=== PATIENT | female | born 1955 | race Caucasian/White ===

== ENCOUNTER → 2016-08-26 | Outpatient (CLI) | payer OTHER ==
--- NOTE | 2016-08-27 07:16 | US ---
EXAMINATION TYPE: US kidneys/renal and bladder DATE OF EXAM: 08/26/2016 4:43 PM COMPARISON: NONE CLINICAL HISTORY: Hematuria R31.9. Lower abdominal pain, hematuria, history of kidney stones EXAM MEASUREMENTS: Right Kidney: 10.3 x 4.7 x 4.6 cm Left Kidney: 9.2 x 5.7 x 4.0cm cm Right Kidney: multiple linear echogenic areas that show no evidence of shadowing, largest = 0.7cm ma y reflect vascular calcifications. Left Kidney: no evidence of hydronephrosis or mass Bladder: appears wnl Bilateral Jets seen: yes There is no evidence for hydronephrosis at this point in time. No nephrolithiasis is seen. No derek s are identified. The urinary bladder is anechoic. Bilateral ureteral jets are seen. IMPRESSION: No significant abnormality of this time.
== END | disposition home or self-care (01) ==
LOC: RADUSWWP 16:21
PROVIDERS: ATTEND Internal Medicine
DX: R31.9 Hematuria, unspecified (principal)
CPT/HCPCS: 76770

== ENCOUNTER → 2016-09-10 | Outpatient (CLI) | payer BC, OTHER ==
[~2016-09-10] MED LIST: SODIUM CHLORIDE 0.9% 250 ML in EMPTY BAG 1 BAG IV PRN; SODIUM CHLORIDE 0.9% 500 ML in EMPTY BAG 1 BAG IV PRN
[2016-09-10 11:38] VITALS: BP 103/62; RESP 16; TEMP 98.7
== END | disposition home or self-care (01) ==
LOC: PROCWHC3 11:00
PROVIDERS: ATTEND Internal Medicine Hematology & Oncology
DX: C50.111 Malignant neoplasm of central portion of right female breast (principal)
CPT/HCPCS: 96523; J1642

== ENCOUNTER → 2016-10-07 | Outpatient (CLI) | payer OTHER ==
--- NOTE | 2016-10-07 13:16 | XR ---
EXAMINATION TYPE: XR KUB DATE OF EXAM: 10/07/2016 12:55 PM CLINICAL HISTORY: Right flank and pelvic pain per patient with history of kidney stones. Ureter stone per order TECHNIQUE: Single supine KUB image of the abdomen is obtained. COMPARISON: CT abdomen and pelvis June 23, 2014. Renal ultrasound August 26, 2016 FINDINGS: Scattered pelvic phleboliths are present. Surgical clips right pelvis is now identified. Ch olecystectomy clips are again seen. There is no definite nephrolithiasis. There is overall nonobstructive bowel gas pattern. Mild to moderate axial joint space loss in both hi ps is redemonstrated. Facet arthropathy lumbosacral junction is noted. Lung bases are not included. IMPRESSION: No definite nephrolithiasis. Possible calculi kidney suspected on recent ultrasound is not clearly se en on plain films, consider CT correlation. No stones noted on CT June 2014.
== END | disposition home or self-care (01) ==
LOC: RADXRMAIN 12:30
PROVIDERS: ATTEND Urology
DX: N20.0 Calculus of kidney (principal)
CPT/HCPCS: 74000

== ENCOUNTER → 2016-10-21 | Outpatient (CLI) | payer OTHER, BC ==
[2016-10-21 13:28] VITALS: BP 130/68; PULSE 65; RESP 16; TEMP 97.8
== END ==
LOC: PROCWHC3 12:51
PROVIDERS: ATTEND Internal Medicine Hematology & Oncology
DX: C50.111 Malignant neoplasm of central portion of right female breast (principal)
CPT/HCPCS: 96523; J1642

== ENCOUNTER → 2016-11-05 | Outpatient (CLI) | payer BC, OTHER ==
--- NOTE | 2016-11-05 10:35 | USB ---
Reason for exam: clinical finding. History: Patient is postmenopausal and has history of breast cancer at age 57. Family history of breast cancer in mother at age 74. Chemotherapy, July 2013. Mastectomy of the right breast, April 12, 2013. Radiation therapy of the right breast, December 2012. Benign lumpectomy of the right breast, December 11, 2009. Took estrogen for 2 months. Indicated problem(s): palpable abnormality and pain in the left breast. Physical Findings: Nurse did not find any significant physical abnormalities on exam. US Breast LT Left breast ultrasound includes all four quadrants, the retroareolar region and axilla. Finding demonstrate at 3 o'clock zone B/C (palpable site) 4mm echogenic area that appears to elongate when turned, either a thickened ligament or possibly a spindle cell lipoma, 6 month follow up recommended. At the 5 o'clock zone A and 7 o'clock zone B/C, also corresponding to palpable sites, there are either prominent fat lobules or 1.7cm conventional lipomas at each site, the latter is favored given that these areas are palpable. These results were verbally communicated with the patient and result sheet given to the patient on 11/05/16. ASSESSMENT: Probably benign, BI-RAD 3 RECOMMENDATION: Follow-up diagnostic mammogram and ultrasound of the left breast in 6 months. Back on schedule. [facility]
== END | disposition home or self-care (01) ==
LOC: RADUSWWP 08:50
PROVIDERS: ATTEND Internal Medicine Hematology & Oncology
DX: N63 Unspecified lump in breast (principal); Z85.3 Personal history of malignant neoplasm of breast

== ENCOUNTER → 2016-12-03 | Outpatient (CLI) | payer OTHER ==
[2016-12-03 11:29] VITALS: BP 123/67; PULSE 72; RESP 16; TEMP 97.8
== END | disposition home or self-care (01) ==
LOC: PROCWHC3 11:00
PROVIDERS: ATTEND Internal Medicine Hematology & Oncology
DX: C50.111 Malignant neoplasm of central portion of right female breast (principal)
CPT/HCPCS: 96523; J1642

== ENCOUNTER → 2017-03-17 | Outpatient (CLI) | payer BC, OTHER ==
[~2017-03-17] MED LIST changes: -SODIUM CHLORIDE 0.9% 250 ML in EMPTY BAG 1 BAG IV PRN
[2017-03-17 12:33] VITALS: BP 134/63; PULSE 51; RESP 18; TEMP 98.4
== END ==
LOC: PROCWHC3 11:49
PROVIDERS: ATTEND Internal Medicine Hematology & Oncology
DX: C50.111 Malignant neoplasm of central portion of right female breast (principal)
CPT/HCPCS: 96523; J1642

== ENCOUNTER → 2017-05-15 | Outpatient (CLI) | payer OTHER ==
--- NOTE | 2017-05-18 08:01 | MM ---
Reason for exam: follow-up at short interval from prior study. Last mammogram was performed 1 year and 1 month ago. History: Patient is postmenopausal and has history of breast cancer at age 57. Family history of breast cancer in mother at age 74. Chemotherapy, July 2013. Mastectomy of the right breast, April 12, 2013. Radiation therapy of the right breast, December 2012. Benign lumpectomy of the right breast, December 11, 2009. Took estrogen for 2 months. Physical Findings: Nurse did not find any significant physical abnormalities on exam. MG Diagnostic Mammo LT w CAD CC and MLO view(s) were taken of the left breast. Prior study comparison: April 28, 2016, left breast MG diagnostic mammo LT w CAD. March 21, 2015, left breast MG diagnostic mammo LT w CAD. The breast tissue is heterogeneously dense. This may lower the sensitivity of mammography. No suspicious abnormality on the left breast. No significant new findings when compared with previous films. These results were verbally communicated with the patient and result sheet given to the patient on 05/15/17. ASSESSMENT: Negative, BI-RAD 1 RECOMMENDATION: Follow-up diagnostic mammogram of the left breast in 1 year.
--- NOTE | 2017-05-18 08:03 | USB ---
Reason for exam: follow-up at short interval from prior study. History: Patient is postmenopausal and has history of breast cancer at age 57. Family history of breast cancer in mother at age 74. Chemotherapy, July 2013. Mastectomy of the right breast, April 12, 2013. Radiation therapy of the right breast, December 2012. Benign lumpectomy of the right breast, December 11, 2009. Took estrogen for 2 months. US Breast LT Left breast ultrasound includes all four quadrants, the retroareolar region and axilla. Finding demonstrates no cystic or solid lesion seen. No suspicious findings. No cystic or solid masses. These results were verbally communicated with the patient and result sheet given to the patient on 05/15/17. ASSESSMENT: Negative, BI-RAD 1 RECOMMENDATION: Follow-up diagnostic mammogram of the left breast in 1 year.
== END | disposition home or self-care (01) ==
LOC: RADUSWWP 14:18
PROVIDERS: ATTEND Internal Medicine Hematology & Oncology
DX: R92.8 Other abnormal and inconclusive findings on diagnostic imaging of breast (principal); Z85.3 Personal history of malignant neoplasm of breast
CPT/HCPCS: 76641; G0206

== ENCOUNTER → 2017-06-18 | Outpatient (CLI) | payer BC, OTHER ==
[2017-06-18 13:12] VITALS: BP 146/74; PULSE 68; RESP 16; TEMP 97.9
== END ==
LOC: PROCWHC3 06-10 11:07
PROVIDERS: ATTEND Internal Medicine Hematology & Oncology
DX: C50.111 Malignant neoplasm of central portion of right female breast (principal)
CPT/HCPCS: 96523; J1642

== ENCOUNTER → 2017-07-29 | Outpatient (CLI) | payer BC, OTHER ==
[2017-07-29 13:07] VITALS: BP 120/80; PULSE 80; RESP 18; TEMP 98.2
== END | disposition home or self-care (01) ==
LOC: PROCWHC3 12:46
PROVIDERS: ATTEND Internal Medicine Hematology & Oncology
DX: C50.211 Malignant neoplasm of upper-inner quadrant of right female breast (principal)
CPT/HCPCS: 96523; J1642

== ENCOUNTER → 2017-10-21 | Outpatient (CLI) | payer OTHER ==
[2017-10-21 14:29] VITALS: BP 117/80; PULSE 83; RESP 16; TEMP 97.9
== END | disposition home or self-care (01) ==
LOC: PROCWHC3 13:49
PROVIDERS: ATTEND Internal Medicine Hematology & Oncology
DX: C50.111 Malignant neoplasm of central portion of right female breast (principal)
CPT/HCPCS: 96523; J1642

== ENCOUNTER → 2017-12-10 | Outpatient (CLI) | payer OTHER ==
[2017-12-10 10:04] VITALS: BP 130/80; RESP 16; TEMP 98.2
== END | disposition home or self-care (01) ==
LOC: PROCWHC3 09:51
PROVIDERS: ATTEND Internal Medicine Hematology & Oncology
DX: C50.211 Malignant neoplasm of upper-inner quadrant of right female breast (principal)
CPT/HCPCS: 96523; J1642

== ENCOUNTER → 2018-03-18 | Outpatient (CLI) | payer OTHER ==
--- NOTE | 2018-03-18 13:51 | FL ---
Modified barium swallow. HISTORY: Dysphagia. Modified barium swallow was performed with the department of speech pathology. The patient was prese nted with various consistencies of barium. There is no evidence for aspiration or penetration. Full report is to follow from the department of speech pathology. Impression: Normal study.
== END | disposition home or self-care (01) ==
LOC: RADFLMAIN 11:01
PROVIDERS: ATTEND Surgery
DX: R13.10 Dysphagia, unspecified (principal); K21.9 Gastro-esophageal reflux disease without esophagitis
CPT/HCPCS: 74230

== ENCOUNTER → 2018-03-22 | Outpatient (CLI) | payer OTHER ==
--- NOTE | 2018-03-22 09:37 | FL ---
EXAMINATION TYPE: FL barium swallow DATE OF EXAM: 03/22/2018 LIMITED ESOPHAGRAM: CLINICAL HISTORY: Dysphasia and GERD per order. History of hiatal hernia repair 15 years ago with me sh and repeat hiatal hernia repair 5 years ago with Joseph fundoplication surgery. TECHNIQUE: Limited esophagram is performed utilizing approximately 30 oz of thin barium. A total of 42 seconds of fluoroscopic time was utilized during procedure. 29 spot images are saved. FINDINGS: The patient swallowed contrast without difficulty or delay. Esophageal peristalsis and mo tility are within normal limits. There is good flow of contrast along the diaphragmatic hiatus into t he stomach, there is no evidence of contrast extravasation to suggest leak. No persistent hiatal devonte ia is seen. Patient remains asymptomatic. Adjacent surgical clips near diaphragmatic hiatus are prese nt. Underlying scoliosis is incidentally noted. There is visualization of left sided Mediport cathete r for known breast cancer. Cholecystectomy clips are incidentally noted. IMPRESSION: No evidence of recurrent hiatal hernia or significant obstruction status post Josehp fund oplication surgery 5 years earlier.
== END | disposition home or self-care (01) ==
LOC: RADFLWHC 08:50
PROVIDERS: ATTEND Surgery
DX: K21.9 Gastro-esophageal reflux disease without esophagitis (principal); R13.10 Dysphagia, unspecified; Z98.890 Other specified postprocedural states
CPT/HCPCS: 74220

== ENCOUNTER → 2018-06-18 | Outpatient (CLI) | payer OTHER ==
[2018-06-18 14:18] VITALS: BP 113/75; PULSE 99; RESP 16; TEMP 98.4
== END ==
LOC: PROCWHC3 13:48
PROVIDERS: ATTEND Internal Medicine Hematology & Oncology
DX: C50.111 Malignant neoplasm of central portion of right female breast (principal)
CPT/HCPCS: 96523

== ENCOUNTER → 2018-07-05 | Outpatient (CLI) | payer OTHER ==
--- NOTE | 2018-07-06 08:26 | MM ---
Reason for exam: additional evaluation requested from prior study. Last mammogram was performed 1 year and 2 months ago. History: Patient is postmenopausal and has history of breast cancer at age 57. Family history of breast cancer in mother at age 74. Chemotherapy, July 2013. Mastectomy of the right breast, April 12, 2013. Radiation therapy of the right breast, December 2012. Benign lumpectomy of the right breast, December 11, 2009. Took estrogen for 2 months. Physical Findings: Nurse did not find any significant physical abnormalities on exam. MG Diagnostic Mammo LT w CAD CC and MLO view(s) were taken of the left breast. Prior study comparison: May 15, 2017, left breast MG diagnostic mammo LT w CAD. April 28, 2016, left breast MG diagnostic mammo LT w CAD. The breast tissue is heterogeneously dense. This may lower the sensitivity of mammography. Benign calcifications in the left breast. No suspicious abnormality. Left mediport seen. No significant new findings when compared with previous films. These results were verbally communicated with the patient and result sheet given to the patient on 07/05/18. ASSESSMENT: Benign, BI-RAD 2 RECOMMENDATION: Follow-up diagnostic mammogram of the left breast in 1 year.
== END ==
LOC: RADMAMWWP 13:36
PROVIDERS: ATTEND Surgery
DX: R92.8 Other abnormal and inconclusive findings on diagnostic imaging of breast (principal)
CPT/HCPCS: 77065

== ENCOUNTER → 2019-02-11 | Outpatient (CLI) | payer OTHER ==
[~2019-02-11] MED LIST changes: +SODIUM CHLORIDE 0.9% 500 ML 500 ML in EMPTY BAG 1 BAG IV PRN; -SODIUM CHLORIDE 0.9% 500 ML in EMPTY BAG 1 BAG IV PRN
== END | disposition home or self-care (01) ==
LOC: PROCWHC3 13:53
PROVIDERS: ATTEND Internal Medicine Hematology & Oncology
DX: Z53.9 Procedure and treatment not carried out, unspecified reason (principal)

== ENCOUNTER 2019-02-17 08:06 | Day surgery (SDC) | payer OTHER ==
[2019-02-15 10:55] VITALS: BMI 25.8
[~2019-02-17 08:06] MED LIST changes: +LACTATED RINGERS 1,000 ML IV SCH; +LIDOCAINE 1% 20 ML VIAL (10MG/ML) FOR IV START INTRADERMA PRN; -SODIUM CHLORIDE 0.9% 500 ML 500 ML in EMPTY BAG 1 BAG IV PRN
[2019-02-17 08:34] VITALS: TEMP 97.4
[2019-02-17] MEDS ORDERED: PROPOFOL 10 MG/ML 20 ML VIAL IV ONE (09:24)
[2019-02-17] MEDS ORDERED: LIDOCAINE 1% INJ 10MG/ML (20 ML MDV) ONE (09:24)
--- NOTE | 2019-02-17 09:33 | P.GSHP ---
History of Present Illness H&P Date: 02/17/19 Chief Complaint: Peptic ulcer disease, epigastric pain This is a 63-year-old female with history of peptic ulcer disease. Patient had complaints of epigastric pain. She presents today for EGD. Past Medical History Past Medical History: Cancer, CVA/TIA, Fibromyalgia, GERD/Reflux, Memory Impairment, Mitral Valve Prolapse (MVP), Osteoarthritis (OA), Pneumonia Additional Past Medical History / Comment(s): HIATAL HERNIA. (06/23/14) CVA, NO RESIDUAL. STAGE 3 R BREAST CANCER-2012. CHEMO-LAST DOSE 11/13. RADIATION- LAST DOSE 01/14. Kidney stones,SJORGREN'S, Hx. anemia, MENINGITIS. IBS. POOR CIRCULATION LT LEG. History of Any Multi-Drug Resistant Organisms: None Reported Past Surgical History: Adenoidectomy, Breast Surgery, Cholecystectomy, Hernia Repair, Hysterectomy, Tonsillectomy Additional Past Surgical History / Comment(s): HAD FALLOPIAN TUBES AND A MASS REMOVED. Hx. hiatel hernia repair x 2 ARTHOSCOPIES ON KNEES, Right masectomy. FABRICIO CATARACTS, SX FOR PTOSIS. STILL HAS MEDIPORT IN PLACE. rt hand sugery /carpal tunnel and arthroplasty aug 2015, COLONOSCOPY, EGD Past Anesthesia/Blood Transfusion Reactions: No Reported Reaction Additional Past Anesthesia/Blood Transfusion Reaction / Comment(s): PT HAS RECIEVED BLOOD WITH NO REACTION. Smoking Status: Never smoker - Past Family History Father Family Medical History: Hypertension, Myocardial Infarction ([place]), Prostate Disorder, Thyroid Disorder Mother Family Medical History: AFIB, Cancer Additional Family Medical History / Comment(s): Mom-atrial fib/breast cancer. Medications and Allergies Home Medications Medication Instructions Recorded Confirmed Type Cyclobenzaprine [Flexeril] 10 mg PO HS 12/14/13 02/15/19 History Desvenlafaxine Succinate [Pristiq 100 mg PO QAM 12/14/13 02/17/19 History ER] Docusate [Colace] 100 mg PO HS 04/13/14 02/15/19 History Loratadine [Claritin] 10 mg PO BID 04/13/14 02/15/19 History Aspirin 325 mg PO HS 04/24/14 02/15/19 History Pregabalin [Lyrica] 75 mg PO BID 11/24/14 02/15/19 History traZODone HCL 50 mg PO HS 07/30/16 02/15/19 History Famotidine [Pepcid] 20 mg PO BID 02/15/19 02/15/19 History Allergies Allergy/AdvReac Type Severity Reaction Status Date / Time hydromorphone HCl Allergy Severe LOW HEART Verified 02/17/19 08:32 [From Dilaudid] RATE iron sucrose complex Allergy Severe HAD MINI Verified 02/17/19 08:32 [From Venofer] STROKE AFTER INFUSION meperidine HCl [From Demerol] Allergy Intermediate Nausea & Verified 02/17/19 08:32 Vomiting morphine Allergy Intermediate Nausea & Verified 02/17/19 08:32 Vomiting Sulfa (Sulfonamide Allergy Mild Itching Verified 02/17/19 08:32 Antibiotics) Surgical - Exam Vital Signs Temp Pulse Resp BP Pulse Ox 97.4 F L 71 17 126/73 100 02/17/19 08:33 02/17/19 08:33 02/17/19 08:33 02/17/19 08:33 02/17/19 08:33 - General well developed, well nourished, no distress - Eyes PERRL - ENT normal pinna - Neck no masses - Respiratory normal expansion - Cardiovascular Rhythm: regular - Abdomen Abdomen: soft, non tender Assessment and Plan Assessment: Epigastric pain History of peptic ulcer disease We'll perform EGD.
--- NOTE | 2019-02-17 09:40 | P.OP ---
Date of Procedure: 02/17/19 Preoperative Diagnosis: Peptic ulcer disease Postoperative Diagnosis: Antral ulcer Procedure(s) Performed: EGD Anesthesia: MAC Surgeon: Marcio Reaves Pathology: other (Antrum) Condition: stable Disposition: PACU Description of Procedure: The patient's placed on the endoscopy table in the lateral position. She received IV sedation. The gastroscope placed oropharynx and passed in the esophagus into the stomach. Scope was then placed through the pylorus. The first and second portion of the duodenum appeared normal. Scope was then brought back the antrum and this appeared mildly inflamed. There was evidence of a prepyloric ulce in the antrum. This was biopsied. The scope was then retroflexed the remainder stomach appeared normal. There was no significant hiatal hernia. The patient a previous Aida fundal plication. The wrap appeared to be in the appropriate position. The distal esophagus. Normal. The proximal esophagus appeared normal. Scope was withdrawn for patient.
[2019-02-17 09:48] VITALS: RESP 16
[2019-02-17 10:02] VITALS: BP 122/78; PULSE 60
== END 2019-02-17 10:17 | disposition home or self-care (01) ==
LOC: ORWHC2ENDO 08:06
PROVIDERS: ATTEND Surgery
DX: K25.9 Gastric ulcer, unspecified as acute or chronic, without hemorrhage or perforation (principal); K29.50 Unspecified chronic gastritis without bleeding; K44.9 Diaphragmatic hernia without obstruction or gangrene; I34.1 Nonrheumatic mitral (valve) prolapse; K21.9 Gastro-esophageal reflux disease without esophagitis; K58.9 Irritable bowel syndrome, unspecified; M19.90 Unspecified osteoarthritis, unspecified site; M79.7 Fibromyalgia; Z79.82 Long term (current) use of aspirin; Z85.3 Personal history of malignant neoplasm of breast; Z86.73 Personal history of transient ischemic attack (TIA), and cerebral infarction without residual deficits; Z87.442 Personal history of urinary calculi; Z88.2 Allergy status to sulfonamides; Z88.5 Allergy status to narcotic agent; Z92.21 Personal history of antineoplastic chemotherapy; Z90.49 Acquired absence of other specified parts of digestive tract; Z98.42 Cataract extraction status, left eye; Z98.41 Cataract extraction status, right eye; Z82.49 Family history of ischemic heart disease and other diseases of the circulatory system; Z80.3 Family history of malignant neoplasm of breast; Z79.899 Other long term (current) drug therapy; Z88.8 Allergy status to other drugs, medicaments and biological substances
CPT/HCPCS: 88305; 43239; J2001; J2704

== ENCOUNTER → 2019-03-03 | Outpatient (CLI) | payer OTHER ==
[~2019-03-03] MED LIST changes: -LACTATED RINGERS 1,000 ML IV SCH; -LIDOCAINE 1% 20 ML VIAL (10MG/ML) FOR IV START INTRADERMA PRN; +SODIUM CHLORIDE 0.9% 500 ML 500 ML in EMPTY BAG 1 BAG IV PRN
[2019-03-03 13:41] VITALS: BP 132/84; PULSE 74; RESP 16; TEMP 98.1
== END | disposition home or self-care (01) ==
LOC: PROCWHC3 13:25
PROVIDERS: ATTEND Internal Medicine Hematology & Oncology
DX: C50.212 Malignant neoplasm of upper-inner quadrant of left female breast (principal)
CPT/HCPCS: 96523; J1642

== ENCOUNTER → 2019-04-06 | Day surgery (SDC) | payer OTHER ==
[2019-03-31 10:35] VITALS: BMI 25.3
[~2019-04-06] MED LIST changes: +PROPOFOL 10 MG/ML 20 ML VIAL IV ONE; -SODIUM CHLORIDE 0.9% 500 ML 500 ML in EMPTY BAG 1 BAG IV PRN
[2019-04-06] MEDS: LACTATED RINGERS 1,000 ML IV SCH ×2 (11:38→12:50)
[2019-04-06 11:42] VITALS: RESP 18; TEMP 97.4
--- NOTE | 2019-04-06 12:53 | P.GSHP ---
History of Present Illness H&P Date: 04/06/19 Chief Complaint: Peptic ulcer disease 's is a 63-year-old female with history of peptic ulcer disease. Patient rents today for EGD. She's had complaints of epigastric pain. Past Medical History Past Medical History: Cancer, CVA/TIA, Fibromyalgia, GERD/Reflux, Mitral Valve Prolapse (MVP), Osteoarthritis (OA), Pneumonia, Renal Disease Additional Past Medical History / Comment(s): HIATAL HERNIA. (06/23/14) OBV FOR CHEST PAIN, TESTS NEGATIVE. IP 04/13/14 TO 04/15/14 CVA, NO RESIDUAL. STAGE 3 R BREAST CANCER-2012. CHEMO-LAST DOSE 11/13. RADIATION-LAST DOSE 01/14. Kidney stones,Shoegrans Hx. anemia, MENNIGITIS. IBS. POOR CIRCULATION LT LEG., ulcers History of Any Multi-Drug Resistant Organisms: None Reported Past Surgical History: Adenoidectomy, Breast Surgery, Cholecystectomy, Hysterectomy, Tonsillectomy Additional Past Surgical History / Comment(s): HAD FALLOPIAN TUBES AND A MASS REMOVED. Hx. hiatel hernia repair x 2 ARTHOSCOPIES ON KNEESRight masectomy. FABRICIO CATARACTS, SX FOR PTOSIS.STILL HAS MEDIPORT IN PLACE. rt hand sugery /carpal tunnel and arthroplasty aug 2015 Past Anesthesia/Blood Transfusion Reactions: No Reported Reaction Additional Past Anesthesia/Blood Transfusion Reaction / Comment(s): PT HAS RECIEVED BLOOD WITH NO REACTION. Smoking Status: Never smoker - Past Family History Father Family Medical History: Hypertension, Myocardial Infarction ([place]), Prostate Disorder, Thyroid Disorder Mother Family Medical History: AFIB, Cancer Additional Family Medical History / Comment(s): Mom-atrial fib/breast cancer. Medications and Allergies Home Medications Medication Instructions Recorded Confirmed Type Cyclobenzaprine [Flexeril] 10 mg PO HS 12/14/13 03/31/19 History Desvenlafaxine Succinate [Pristiq 100 mg PO QAM 12/14/13 04/06/19 History ER] Docusate [Colace] 100 mg PO HS 04/13/14 03/31/19 History Loratadine [Claritin] 10 mg PO BID PRN 04/13/14 03/31/19 History Aspirin 325 mg PO HS 04/24/14 03/31/19 History Pregabalin [Lyrica] 75 mg PO BID 11/24/14 03/31/19 History traZODone HCL 50 mg PO HS PRN 07/30/16 04/06/19 History Famotidine [Pepcid] 20 mg PO BID 02/15/19 03/31/19 History Omeprazole 40 mg PO DAILY #60 capsule. 02/17/19 03/31/19 Rx Sucralfate [Carafate] 1 gm PO BID #60 tab 02/17/19 03/31/19 Rx Allergies Allergy/AdvReac Type Severity Reaction Status Date / Time hydromorphone HCl Allergy Severe LOW HEART Verified 04/06/19 11:26 [From Dilaudid] RATE iron sucrose complex Allergy Severe HAD MINI Verified 04/06/19 11:26 [From Venofer] STROKE AFTER INFUSION meperidine HCl [From Demerol] Allergy Intermediate Nausea & Verified 04/06/19 11:26 Vomiting morphine Allergy Intermediate Nausea & Verified 04/06/19 11:26 Vomiting Sulfa (Sulfonamide Allergy Mild Itching Verified 04/06/19 11:26 Antibiotics) Surgical - Exam Vital Signs Temp Pulse Resp BP Pulse Ox 97.4 F L 61 18 141/68 100 04/06/19 11:15 04/06/19 11:15 04/06/19 11:15 04/06/19 11:15 04/06/19 11:15 - General well developed, well nourished, no distress - Eyes PERRL - ENT normal pinna - Neck no masses - Respiratory normal expansion - Cardiovascular Rhythm: regular - Abdomen Mild epigastric pain Abdomen: soft Assessment and Plan Assessment: History of peptic ulcer disease. We'll perform EGD.
[2019-04-06 13:30] VITALS: BP 155/95; PULSE 59
--- NOTE | 2019-04-15 12:49 | P.OP ---
Date of Procedure: 04/08/19 Preoperative Diagnosis: Peptic ulcer Postoperative Diagnosis: Peptic ulcer Procedure(s) Performed: EGD Anesthesia: MAC Surgeon: Marcio Reaves Pathology: other (Antral ulcer) Condition: stable Disposition: PACU Description of Procedure: Patient's placed on the endoscopy table in the lateral position. She received IV sedation. The gastro-/oropharynx passed in the esophagus and into the stomach. Scope some placed through the pylorus. First and second portion duodenum appeared normal. Scope summer back the antrum and there was a small antral ulcer seen. This was biopsied. The scope was unretroflexed and remainder some appeared normal. The GE junction was at 47. The distal esophagus appeared normal. The proximal esophagus. Copious withdrawn for patient.
== END ==
LOC: ORWHC2ENDO 10:45
PROVIDERS: ATTEND Surgery
DX: K25.9 Gastric ulcer, unspecified as acute or chronic, without hemorrhage or perforation (principal); K29.50 Unspecified chronic gastritis without bleeding; Z87.11 Personal history of peptic ulcer disease; K58.9 Irritable bowel syndrome, unspecified; K21.9 Gastro-esophageal reflux disease without esophagitis; M79.7 Fibromyalgia; I34.1 Nonrheumatic mitral (valve) prolapse; Z86.73 Personal history of transient ischemic attack (TIA), and cerebral infarction without residual deficits; Z95.828 Presence of other vascular implants and grafts; F32.9 Major depressive disorder, single episode, unspecified; M19.90 Unspecified osteoarthritis, unspecified site; Z90.11 Acquired absence of right breast and nipple; Z90.49 Acquired absence of other specified parts of digestive tract; Z97.2 Presence of dental prosthetic device (complete) (partial); Z87.01 Personal history of pneumonia (recurrent); Z87.442 Personal history of urinary calculi; Z85.3 Personal history of malignant neoplasm of breast; Z92.3 Personal history of irradiation; Z92.21 Personal history of antineoplastic chemotherapy; Z82.49 Family history of ischemic heart disease and other diseases of the circulatory system; Z83.49 Family history of other endocrine, nutritional and metabolic diseases; Z80.3 Family history of malignant neoplasm of breast; Z79.82 Long term (current) use of aspirin; Z79.899 Other long term (current) drug therapy; Z88.5 Allergy status to narcotic agent; Z88.2 Allergy status to sulfonamides; Z88.8 Allergy status to other drugs, medicaments and biological substances
CPT/HCPCS: 88305; 43239; J2704

== ENCOUNTER → 2019-04-22 | Outpatient (CLI) | payer OTHER ==
--- NOTE | 2019-04-22 10:45 | MR ---
EXAMINATION TYPE: MR brain wo/w con DATE OF EXAM: 04/22/2019 10:30 AM COMPARISON: 06/02/2014 HISTORY: Breast cancer CONTRAST: Patient received 7 mL intravenous Gadavist gadolinium contrast. Multiplanar and multispin-echo imaging of the brain was performed . Pre and post contrast enhanced i mages are obtained. The ventricles, basal cisterns and sulci overlying the cerebral convexities are mildly enlarged. There is evidence of mild periventricular white matter ischemic demyelination. Remote deep white matter insults are also noted. No acute edema is seen on diffusion weighted imaging. There is no evidence for midline shift or mass effect. Acute intracranial hemorrhage or extra-axial collection is not evident. No enhancing lesions are seen. The paranasal sinuses and mastoid air cells are well-aerated. IMPRESSION: Age-related atrophic and chronic small vessel ischemic change. No acute intracranial process at this time. No enhancing lesions are seen.
== END | disposition home or self-care (01) ==
LOC: RADMRIMAIN 09:44
PROVIDERS: ATTEND Internal Medicine Hematology & Oncology
DX: I67.82 Cerebral ischemia (principal); G31.1 Senile degeneration of brain, not elsewhere classified; C50.211 Malignant neoplasm of upper-inner quadrant of right female breast
CPT/HCPCS: 70553; A9585

== ENCOUNTER → 2019-05-18 | Outpatient (CLI) | payer OTHER ==
[2019-05-18 16:49] LABS: Basophils % (A) 0 %; Eosinophils % (A) 0 %; HCT 37.3 % (34.0-46.0); HGB 12.6 gm/dL (11.4-16.0); Lymphocytes # (A) 1.3 k/uL (1.0-4.8); Lymphocytes % (A) 26 %; MCH 31.1 pg (25.0-35.0); MCHC 33.8 g/dL (31.0-37.0); MCV 92.1 fL (80.0-100.0); Mean Platelet Volume 5.8; Monocytes # (A) 0.2 k/uL (0-1.0); Monocytes % (A) 4 %; Neutrophils # (A) 3.3 k/uL (1.3-7.7); Neutrophils % (A) 68 %; Platelet Count 189 k/uL (150-450); RBC 4.05 m/uL (3.80-5.40); RDW 12.3 % (11.5-15.5); WBC 4.8 k/uL (3.8-10.6)
[2019-05-19 00:29] LABS: African American GFR (CKD) 90.9 (60.0-200.0); Albumin 4.2 g/dL (3.80-4.90); Albumin/Globulin Ratio 2.1 (1.60-3.17); Anion Gap 5.9 mmol/L (4.00-12.00); BUN/Creat Ratio 21.25 Ratio (12.00-20.00); Calcium 9.2 mg/dL (8.7-10.3); Carbon Dioxide 28.1 mmol/L (21.6-31.8); Potassium 4.2 mmol/L (3.5-5.5); Total Bilirubin 0.3 mg/dL (0.3-1.2); Total Protein 6.2 g/dL (6.2-8.2)
[2019-05-19 01:25] LABS: T4, Free (Free Thyroxine) 0.9 ng/dL (0.80-1.80)
== END | disposition home or self-care (01) ==
LOC: LABWHC1 14:48
PROVIDERS: ATTEND Nurse Practitioner Acute Care
DX: I49.9 Cardiac arrhythmia, unspecified (principal); E55.9 Vitamin D deficiency, unspecified; R41.9 Unspecified symptoms and signs involving cognitive functions and awareness
CPT/HCPCS: 36415; 80053; 82306; 82607; 83090; 84207; 84439; 84443; 84481; 85025; 93005

== ENCOUNTER → 2019-05-26 | Outpatient (CLI) | payer OTHER ==
[2019-05-26 14:38] LABS: Basophils % (A) 1 %; Eosinophils % (A) 0 %; HCT 41.4 % (34.0-46.0); HGB 13.8 gm/dL (11.4-16.0); Lymphocytes # (A) 1.2 k/uL (1.0-4.8); Lymphocytes % (A) 25 %; MCH 30.8 pg (25.0-35.0); MCHC 33.3 g/dL (31.0-37.0); MCV 92.6 fL (80.0-100.0); Mean Platelet Volume 5.6; Monocytes # (A) 0.2 k/uL (0-1.0); Monocytes % (A) 4 %; Neutrophils # (A) 3.3 k/uL (1.3-7.7); Neutrophils % (A) 68 %; Platelet Count 198 k/uL (150-450); RBC 4.47 m/uL (3.80-5.40); RDW 12.2 % (11.5-15.5); WBC 4.8 k/uL (3.8-10.6)
[2019-05-26 18:55] LABS: African American GFR (CKD) 90.9 (60.0-200.0); Albumin 4.5 g/dL (3.80-4.90); Albumin/Globulin Ratio 2.05 (1.60-3.17); Anion Gap 9.7 mmol/L (4.00-12.00); BUN/Creat Ratio 13.75 Ratio (12.00-20.00); Calcium 9.2 mg/dL (8.7-10.3); Carbon Dioxide 29.3 mmol/L (21.6-31.8); Globulin 2.2 g/dL (1.6-3.3); Potassium 4.1 mmol/L (3.5-5.5); Total Bilirubin 0.6 mg/dL (0.2-1.2); Total Protein 6.7 g/dL (6.2-8.2)
[2019-05-26 19:05] LABS: Folate, Serum 8.7 ng/mL
[2019-05-26 20:24] LABS: Hemoglobin A1C 5.1 % (4.0-6.0)
== END | disposition home or self-care (01) ==
LOC: LABWHC1 13:32
PROVIDERS: ATTEND Internal Medicine
DX: R41.3 Other amnesia (principal)
CPT/HCPCS: 36415; 80053; 82607; 82746; 83036; 84443; 85025

== ENCOUNTER → 2019-07-08 | Outpatient (CLI) | payer OTHER | END | disposition home or self-care (01) | LOC: LABWHC1 11:21 | PROVIDERS: ATTEND Internal Medicine | DX: D51.9 Vitamin B12 deficiency anemia, unspecified (principal) | CPT/HCPCS: 36415; 82607; 83090 ==

== ENCOUNTER → 2019-08-18 | Outpatient (CLI) | payer OTHER ==
--- NOTE | 2019-08-18 14:50 | XR ---
EXAMINATION TYPE: XR lumbar spine 2 or 3V DATE OF EXAM: 08/18/2019 CLINICAL HISTORY: Low back pain TECHNIQUE: Frontal and lateral images of the lumbar spine are obtained. COMPARISON: None FINDINGS: There is diffuse osseous demineralization. There are 5 lumbar type vertebral bodies. The jerome mbar vertebral bodies maintain normal vertebral body heights and alignment. Multilevel facet arthropa thy and anterior osteophytes are seen. Intervertebral disc space narrowing at L4-L5. No acute fractur e of the lumbar spine. IMPRESSION: 1. No acute fracture or malalignment is seen in the lumbar spine. 2. Diffuse osseous demineralization and moderate multilevel degenerative disc disease of the lumbar s pine.
== END | disposition home or self-care (01) ==
LOC: RADXRMAIN 14:19
PROVIDERS: ATTEND Internal Medicine
DX: M51.36 Other intervertebral disc degeneration, lumbar region (principal); M85.80 Other specified disorders of bone density and structure, unspecified site
CPT/HCPCS: 72100

== ENCOUNTER → 2019-08-23 | Outpatient (CLI) | payer OTHER ==
--- NOTE | 2019-08-23 11:54 | MM ---
Reason for exam: additional evaluation requested from prior study. Last mammogram was performed 1 year and 2 months ago. History: Patient is postmenopausal and has history of breast cancer at age 57. Family history of breast cancer in mother at age 74. Chemotherapy, July 2013. Mastectomy of the right breast, April 12, 2013. Radiation therapy of the right breast, December 2012. Benign lumpectomy of the right breast, December 11, 2009. Took estrogen for 2 months. Physical Findings: Nurse did not find any significant physical abnormalities on exam. MG 3D Diag Mammo W/Cad LT CC and MLO view(s) were taken of the left breast. Prior study comparison: July 05, 2018, left breast MG diagnostic mammo LT w CAD. May 15, 2017, left breast MG diagnostic mammo LT w CAD. The breast tissue is heterogeneously dense. This may lower the sensitivity of mammography. Finding: There are typically benign vascular, round, linear calcifications in the left breast. There is no discrete abnormality. Left axillary mediport redemonstrated. These results were verbally communicated with the patient and result sheet given to the patient on 08/23/19. ASSESSMENT: Benign, BI-RAD 2 RECOMMENDATION: Follow-up diagnostic mammogram of the left breast in 1 year.
== END ==
LOC: RADMAMWWP 10:41
PROVIDERS: ATTEND Internal Medicine Hematology & Oncology
DX: R92.8 Other abnormal and inconclusive findings on diagnostic imaging of breast (principal)
CPT/HCPCS: 77065; G0279; 77061

== ENCOUNTER → 2019-08-26 | Outpatient (CLI) | payer OTHER ==
--- NOTE | 2019-08-29 07:31 | BD ---
EXAMINATION TYPE: Axial Bone Density DATE OF EXAM: 08/26/2019 COMPARISON: 01.19.2013 CLINICAL HISTORY: M 81.0 Height: 65 Weight: 169.1 FRAX RISK QUESTIONS: Alcohol (3 or more units per day): no Family History (Parent hip fracture): no Glucocorticoids (More than 3mos): no (Ex: prednisone, prednisolone, methylprednisolone, dexamethasone, and hydrocortisone). History of Fracture in Adulthood: no Secondary Osteoporosis: 1. Type 1 Diabetes: no 2. Hyperthyroidism: no 3. Menopause before 45: yes 4. Malnutrition: no 5. Chronic liver disease: no Rheumatoid Arthritis: no Current Tobacco Use: no RISK FACTORS HISTORY OF: History of Wrist Fracture: When: Family History of Osteoporosis: no Active: sometimes Diet low in dairy products/other sources of calcium: yes Postmenopausal woman: around age 33 Lost more than 2 inches in height since high school: no MEDICATIONS: Additional History: EXAM MEASUREMENTS: Bone mineral densitometry was performed using the [employer] System. Bone mineral density as measured about the Lumbar spine is: ----- L1-L4(G/cm2): 0.970 T Score Values are as follows: ----- L2: -1.9 ----- L3: -2.1 ----- L4: -1.8 ----- L1-L4: -1.7 Bone mineral density has: decreased -17.1 % since study of: 01.19.2013 Bone mineral density about the R hip (g/cm2): 0.727 Bone mineral density about the L hip (g/cm2): 0.729 T Score values are as follows: -----R Neck: -2.2 -----L Neck: -2.2 -----R Total: -2.2 -----L Total: -2.6 Bone mineral density has: decreased -13.4 % since study of: 01.19.2013 IMPRESSION: Osteopenia (T Score between -2.5 and -1). There is slightly increased risk of fracture and the patient may be considered for treatment. Re-Screen 2-5 years. NOTE: T-SCORE=SD OF THE YOUNG ADULT MEAN.
== END | disposition home or self-care (01) ==
LOC: RADBDWWP 14:41
PROVIDERS: ATTEND Internal Medicine
DX: M85.89 Other specified disorders of bone density and structure, multiple sites (principal)
CPT/HCPCS: 77080

== ENCOUNTER 2019-09-13 13:45 | Day surgery (SDC) | payer OTHER ==
[2019-09-09 14:36] VITALS: BMI 26.9
[~2019-09-13 13:45] MED LIST changes: +LACTATED RINGERS 1,000 ML IV SCH; +LIDOCAINE 1% 20 ML VIAL (10MG/ML) FOR IV START INTRADERMA PRN; +ONDANSETRON 4 MG/2 ML VIAL IVP ONE; -PROPOFOL 10 MG/ML 20 ML VIAL IV ONE; +fentaNYL (PF) 50 MCG/ML 2 ML AMP IV PRN
[2019-09-13 14:21] VITALS: TEMP 97.5
[2019-09-13] MEDS ORDERED: DEXAMETHASONE SOD PHOSPHATE 10 MG/ML 1 ML VIAL IV ONE (14:39)
[2019-09-13] MEDS ORDERED: MIDAZOLAM 2 MG/2 ML VIAL IV ONE (14:57)
--- NOTE | 2019-09-13 15:11 | P.ANPRN ---
Procedure Note - Anesthesia - Nerve Block Performed Left Axillary Single Time Out Performed: Yes Date of Procedure: 09/13/19 Procedure Start Time: 14:56 Procedure Stop Time: 15:06 Location of Patient: PreOp Indication: Acute Post-Operative Pain, Requested by Surgeon Sedation Type: Sedate with meaningful contact maintained Preparation: Sterile Prep Position: Supine Catheter: None Needle Types: Pajunk Needle Gauge: 21 Ultrasound used to visualize needle placement: Yes Ultrasound used to observe medication spread: Yes Injectate: 0.5% Ropivacaine (see comment for volume) (ROPIVACAINE 0.5%- 20CC, LIDOCAINE 1% WITH EPI 1:200,000- 15 CC) Blood Aspirated: No Pain Paresthesia on Injection Noted: No Resistance on Injection: Normal Image Stored and Saved: Yes Events: Uneventful and Well Tolerated
[2019-09-13] MEDS ORDERED: LIDOCAINE 2%-EPI 1:100,000 20 ML VIAL ONE (15:45)
[2019-09-13] MEDS ORDERED: ROPIVACAINE 5 MG/ML 30 ML VIAL ONE (15:45)
[2019-09-13] MEDS ORDERED: PROPOFOL 10 MG/ML 20 ML VIAL IV ONE (15:45)
[2019-09-13 16:50] VITALS: RESP 18
[2019-09-13] MEDS ORDERED: LABETALOL 5 MG/ML VIAL MDV IVP ONE (17:15)
[2019-09-13 17:32] VITALS: BP 145/65; PULSE 78
--- NOTE | 2019-09-14 07:24 | OP ---
OPERATIVE REPORT DATE OF SERVICE: 09/13/2019 PREOPERATIVE DIAGNOSIS: 1. Osteoarthritis basal joint left thumb. 2. Left carpal tunnel syndrome. FINAL DIAGNOSES: 1. Osteoarthritis basal joint left thumb. 2. Left carpal tunnel syndrome. PROCEDURES: 1. Excision trapezium with ligament reconstruction, tendon interposition arthroplasty using the flexor carpi radialis. 2. Left carpal tunnel release. EPIC ANESTHESIA ANALYST: Marah Manning PROCEDURE DESCRIPTION: The patient was taken to the Operative Suite after an axillary block was performed by the Department of Anesthesia in the holding area with good results. The involved arm was prepped and draped in the usual manner, elevated, exsanguinated and blood pressure tourniquet inflated to 250 mm of mercury. A volar incision was made over the palm of the hand using a Clarke approach. The dissection was taken through the subcutaneous tissue bluntly to identify and to preserve sensory branches. The flexor carpi radialis tendon was initially identified and kept in view throughout the remainder of the procedure. The thenar muscles were then gently dissected off of the volar capsule and reflected ulnarly and distally. Longitudinal arthrotomy was then made into the trapezial metacarpal and scaphotrapezial joints. The trapezium was dissected sharply with a little traction on the thumb and care again, given to monitoring the position of the flexor carpi radialis. The trapezium was osteotomized and removed in piecemeal fashion using rongeur. Again, the flexor carpi radialis tendon was kept intact so as not to be harmed during this portion of the procedure. A drill hole was then made into the base of the first metacarpal, beginning with an awl and enlarged using drill bits and a large curette. A similar hole was drilled on the dorsal aspect of the base of the first metacarpal perpendicular to the plane of the nail bed. Attention was then turned to harvesting the flexor carpi radialis. Approximately 8 to 10 cm proximal to the wrist, small transverse incision was made and blunt dissection was taken through the subcutaneous tissue. The flexor carpi radialis tendon was identified and released to this level. It was retracted into the wrist wound with a gentle tug. A suspension sling arthroplasty was then performed along with ligament reconstruction of the deep volar ligament using the flexor carpi radialis tendon. The edge of the tendon was secured with suture. The suture was then passed into the base of the first metacarpal and brought out through the dorsal drill hole and brought back down upon itself and abductor pollicis longus tendons. It was secured in place with 3-0 PDS suture. It was then brought back around itself, back through the abductor pollicis longus tendons, and back down upon itself again and further secured with 3-0 PDS suture. Again, in this manner reconstruction of the deep volar ligament was accomplished as well as a suspension sling arthroplasty and natural tendon spacer for the joint. Next, a longitudinal incision was made along the ring finger ray distal to the wrist crease. Dissection was taken through the skin and subcutaneous tissue, initially sharp through the skin and then blunt through the subcutaneous tissue to ensure protection of any potential terminal transverse branches of the palmar cutaneous nerve. The palmar fascia was then incised under direct vision longitudinally exposing the transverse carpal ligament. The transverse carpal ligament also was incised under direct visualization. The median nerve was then reflected free of tenosynovium to ensure no adhesions. At this point, a slight hour glass constriction was noted of the median nerve beneath the transverse carpal ligament. Both wounds were again irrigated and were closed with running and interrupted 5-0 nylon suture. A soft bulky dressing was then applied including the volar plaster splint, immobilizing the wrist in neutral position and a thumb spica splint to the IP joint, immobilizing the thumb. The patient was then taken to the Recovery Room in satisfactory condition. PHILLY / VICKI: [phone] /
== END 2019-09-13 18:05 | disposition home or self-care (01) ==
LOC: OR 13:45
PROVIDERS: ATTEND Orthopaedic Surgery Hand Surgery
DX: M19.042 Primary osteoarthritis, left hand (principal); G56.02 Carpal tunnel syndrome, left upper limb; M19.032 Primary osteoarthritis, left wrist; M79.7 Fibromyalgia; G62.9 Polyneuropathy, unspecified; K58.9 Irritable bowel syndrome, unspecified; M35.00 Sjogren syndrome, unspecified; K21.9 Gastro-esophageal reflux disease without esophagitis; Z88.5 Allergy status to narcotic agent; Z88.2 Allergy status to sulfonamides; Z79.02 Long term (current) use of antithrombotics/antiplatelets; Z79.82 Long term (current) use of aspirin; Z79.899 Other long term (current) drug therapy; Z98.890 Other specified postprocedural states; Z85.3 Personal history of malignant neoplasm of breast; Z92.21 Personal history of antineoplastic chemotherapy; Z92.3 Personal history of irradiation; Z88.8 Allergy status to other drugs, medicaments and biological substances; Z87.11 Personal history of peptic ulcer disease; Z86.73 Personal history of transient ischemic attack (TIA), and cerebral infarction without residual deficits; Z90.49 Acquired absence of other specified parts of digestive tract; Z90.710 Acquired absence of both cervix and uterus; Z90.89 Acquired absence of other organs; Z90.721 Acquired absence of ovaries, unilateral; Z90.11 Acquired absence of right breast and nipple; Z98.41 Cataract extraction status, right eye; Z98.42 Cataract extraction status, left eye; Z82.3 Family history of stroke; Z82.49 Family history of ischemic heart disease and other diseases of the circulatory system
CPT/HCPCS: 64415; 76942; 64721; 25447; J2250; J1100; J0690; J2405; J2795; J2704

== ENCOUNTER 2019-11-16 13:10 | Emergency (ER) | payer OTHER ==
[2019-11-16 13:18] VITALS: RESP 18
[2019-11-16] MEDS ORDERED: SODIUM CHLORIDE 0.9% 1,000 ML IV STA (13:38)
[2019-11-16] MEDS ORDERED: ONDANSETRON 4 MG/2 ML VIAL IVP STA (13:38)
[2019-11-16] MEDS ORDERED: diphenhydrAMINE 50 MG/ML 1 ML VIAL IVP STA (13:38)
[2019-11-16 13:48] LABS: Basophils % (A) 0 %; Eosinophils # (A) 0.1 k/uL (0-0.7); Eosinophils % (A) 1 %; HCT 45.3 % (34.0-46.0); HGB 15.2 gm/dL (11.4-16.0); Lymphocytes # (A) 0.9 k/uL (1.0-4.8); Lymphocytes % (A) 12 %; MCH 29.9 pg (25.0-35.0); MCHC 33.6 g/dL (31.0-37.0); MCV 88.7 fL (80.0-100.0); Mean Platelet Volume 7.2; Monocytes # (A) 0.2 k/uL (0-1.0); Monocytes % (A) 3 %; Neutrophils # (A) 5.9 k/uL (1.3-7.7); Neutrophils % (A) 83 %; Platelet Count 233 k/uL (150-450); RBC 5.11 m/uL (3.80-5.40); RDW 12.5 % (11.5-15.5)
[2019-11-16 13:56] LABS: ALT 16 U/L (4-34); AST 25 U/L (14-36); African American GFR (CKD) >90 (>60 ml/min/1.73 sqM); Albumin 4.6 g/dL (3.5-5.0); Alkaline Phosphatase 116 U/L (38-126); Anion Gap 10 mmol/L; Blood Urea Nitrogen 20 mg/dL (7-17); Carbon Dioxide 27 mmol/L (22-30); Chloride 102 mmol/L (98-107); Glucose 118 mg/dL (74-99); Non-African American GFR(CKD) >90 (>60 ml/min/1.73 sqM); Potassium 3.6 mmol/L (3.5-5.1); Sodium 139 mmol/L (137-145); Total Protein 7.6 g/dL (6.3-8.2)
--- NOTE | 2019-11-16 14:04 | XR ---
EXAMINATION TYPE: XR KUB DATE OF EXAM: 11/16/2019 COMPARISON: NONE HISTORY: Pain TECHNIQUE: Single supine KUB image of the abdomen is obtained FINDINGS: Small bowel demonstrates no evidence for dilatation or air fluid levels. Gas and fecal material is seen in non-distended colon. No convincing evidence for pneumoperitoneum. No unusual calcifications. The lung bases are clear. The osseous structures are intact. IMPRESSION: 1. Overall nonobstructive bowel gas pattern.
[2019-11-16 14:28] LABS: Appearance,Urine Clear (Clear); Bilirubin,Urine Negative (Negative); Blood,Urine Negative (Negative); Color,Urine Yellow; Glucose,Urine (UA) Negative (Negative); Ketones,Urine 2+ (Negative); Leukocyte Esterase,Urine Trace (Negative); Mucus,Urine Many /hpf; Nitrite,Urine Negative (Negative); Protein,Urine Trace (Negative); RBC,Urine 1 /hpf (0-5); Specific Gravity,Urine 1.025 (1.001-1.035); Squamous Epithelial Cell,Urine 2 /hpf (0-4); Urobilinogen,Urine <2.0 mg/dL (<2.0); WBC,Urine 3 /hpf (0-5)
--- NOTE | 2019-11-16 15:50 | ED ---
Nausea/Vomiting/Diarrhea HPI - General Chief complaint: Nausea/Vomiting/Diarrhea Stated complaint: nausea, vomiting Time Seen by Provider: 11/16/19 13:19 Source: patient Mode of arrival: wheelchair Limitations: no limitations - History of Present Illness Initial comments: 64-year-old female patient presents to the emergency department today for evaluation of nausea and vomiting for the last 2 days. Patient states she's been unable to keep down any food or fluids. She denies any abdominal pain or diarrhea. States she believes she may be constipated she has not had a bowel movement in the last 4-5 days. Denies any fever or chills. Denies any hem atemesis, hematochezia, or melena. Patient did just complete a two week prescription for Doxycycline. Patient denies any recent rash, cough, shortness of breath, chest pain, back pain, numbness, tingling, dizziness, weakness, hematuria, dysuria, urinary urgency, urinary frequency, headache, visual c hanges, or any other complaints. - Related Data Home Medications Medication Instructions Recorded Confirmed Cyclobenzaprine [Flexeril] 10 mg PO HS 12/14/13 09/09/19 Desvenlafaxine Succinate [Pristiq 100 mg PO QAM 12/14/13 09/09/19 ER] Docusate [Colace] 100 mg PO HS 04/13/14 09/09/19 Loratadine [Claritin] 10 mg PO DAILY 04/13/14 09/09/19 Pregabalin [Lyrica] 75 mg PO BID 11/24/14 09/09/19 traZODone HCL 50 mg PO HS PRN 07/30/16 09/09/19 Clopidogrel Bisulfate [Plavix] 75 mg PO DAILY 09/09/19 09/09/19 Previous Rx's Medication Instructions Recorded Omeprazole 40 mg PO DAILY #60 capsule. 02/17/19 HYDROcodone/APAP 7.5-325MG [[place] 1 tab PO Q4-6H PRN #15 tab 09/13/19 7.5-325] Ondansetron [Zofran ODT] 4 mg PO Q8HR PRN #10 tab 11/16/19 Allergies Allergy/AdvReac Type Severity Reaction Status Date / Time hydromorphone HCl Allergy Severe LOW HEART Verified 11/16/19 13:18 [From Dilaudid] RATE iron sucrose complex Allergy Severe HAD MINI Verified 11/16/19 13:18 [From Venofer] STROKE AFTER INFUSION meperidine HCl [From Demerol] Allergy Intermediate Nausea & Verified 11/16/19 13:18 Vomiting morphine Allergy Intermediate Nausea & Verified 11/16/19 13:18 Vomiting Sulfa (Sulfonamide Allergy Mild Itching Verified 11/16/19 13:18 Antibiotics) Review of Systems ROS Statement: Those systems with pertinent positive or pertinent negative responses have been documented in the HPI. ROS Other: All systems not noted in ROS Statement are negative. Past Medical History Past Medical History: Cancer, CVA/TIA, Fibromyalgia, GERD/Reflux, Memory Impairment, Mitral Valve Prolapse (MVP), Osteoarthritis (OA), Pneumonia, Renal Disease Additional Past Medical History / Comment(s): HIATAL HERNIA, CVA X2, NO RESIDUAL, HX STAGE 3 RIGHT BREAST CANCER - 2013, hx Kidney stones, Sjogren's, anemia, MENINGITIS, IBS, poor circulation bilateral legs, numbness in toes. History of Any Multi-Drug Resistant Organisms: None Reported Past Surgical History: Adenoidectomy, Breast Surgery, Cholecystectomy, Hysterectomy, Orthopedic Surgery, Tonsillectomy Additional Past Surgical History / Comment(s): FALLOPIAN TUBES AND A MASS REMOVED, hiatel hernia repair X2, ARTHOSCOPIES ON KNEES, right masectomy, bilateral cataracts, SX FOR PTOSIS(eyelids), right hand sugery/carpal tunnel and arthroplasty. Past Anesthesia/Blood Transfusion Reactions: No Reported Reaction Additional Past Anesthesia/Blood Transfusion Reaction / Comment(s): PT HAS RECIEVED BLOOD WITH NO REACTION. Past Psychological History: Anxiety, Depression Smoking Status: Never smoker Past Alcohol Use History: Occasional Past Drug Use History: None Reported - Past Family History Father Family Medical History: Hypertension, Myocardial Infarction ([place]), Prostate Disorder, Thyroid Disorder Daughter(s) Family Medical History: Blood Disorder Additional Family Medical History / Comment(s): Factor 5. Mother Family Medical History: AFIB, Cancer Additional Family Medical History / Comment(s): Breast cancer. General Exam Limitations: no limitations General appearance: alert, in no apparent distress, other (This is a well- developed, well-nourished adult female patient in no acute distress. Vital signs upon presentation are temperature 97.9F, pulse 93, respirations 18, blood pressure 135/84, pulse ox 100% on room air.) Eye exam: Present: normal appearance, PERRL, EOMI. Absent: scleral icterus, conjunctival injection, periorbital swelling ENT exam: Present: normal exam, normal oropharynx, mucous membranes moist Respiratory exam: Present: normal lung sounds bilaterally. Absent: respiratory distress, wheezes, rales, rhonchi, stridor Cardiovascular Exam: Present: regular rate, normal rhythm, normal heart sounds. Absent: systolic murmur, diastolic murmur, rubs, gallop, clicks GI/Abdominal exam: Present: soft, normal bowel sounds. Absent: distended, tende rness, guarding, rebound, rigid Neurological exam: Present: alert, oriented X3, CN II-XII intact Psychiatric exam: Present: normal affect, normal mood Skin exam: Present: warm, dry, intact, normal color. Absent: rash Course Vital Signs 11/16/19 11/16/19 13:11 16:12 Temperature 97.9 F 97.3 F L Pulse Rate 93 68 Respiratory 18 18 Rate Blood Pressure 135/84 136/70 O2 Sat by Pulse 100 98 Oximetry Medical Decision Making - Medical Decision Making 64-year-old female patient presents to the emergency department today for evaluation of nausea and vomiting. Physical examination was unremarkable, abdomen soft and nontender. She is afebrile no normal vital signs. Labs reviewed and were unremarkable. Urinalysis negative for infection. Upon reevaluation patient states she does feel better. She did test negative for carotid 19. She'll be discharged follow up with her primary care physician for recheck in 1-2 days. Return parameters were discussed in detail. She verbalizes understanding and agrees with this plan. - Lab Data Result diagrams: 11/16/19 13:36 11/16/19 13:36 Lab Results 11/16/19 11/16/19 11/16/19 Range/Units 13:36 13:36 13:47 WBC 7.0 (3.8-10.6) k/uL RBC 5.11 (3.80-5.40) m/uL Hgb 15.2 (11.4-16.0) gm/dL Hct 45.3 (34.0-46.0) % MCV 88.7 (80.0-100.0) fL MCH 29.9 (25.0-35.0) pg MCHC 33.6 (31.0-37.0) g/dL RDW 12.5 (11.5-15.5) % Plt Count 233 (150-450) k/uL Neutrophils % 83 % Lymphocytes % 12 % Monocytes % 3 % Eosinophils % 1 % Basophils % 0 % Neutrophils # 5.9 (1.3-7.7) k/uL Lymphocytes # 0.9 L (1.0-4.8) k/uL Monocytes # 0.2 (0-1.0) k/uL Eosinophils # 0.1 (0-0.7) k/uL Basophils # 0.0 (0-0.2) k/uL Sodium 139 (137-145) mmol/L Potassium 3.6 (3.5-5.1) mmol/L Chloride 102 (98-107) mmol/L Carbon Dioxide 27 (22-30) mmol/L Anion Gap 10 mmol/L BUN 20 H (7-17) mg/dL Creatinine 0.69 (0.52-1.04) mg/dL Est GFR (CKD-EPI)AfAm >90 (>60 ml/min/1.73 sqM) Est GFR (CKD-EPI)NonAf >90 (>60 ml/min/1.73 sqM) Glucose 118 H (74-99) mg/dL Calcium 10.0 (8.4-10.2) mg/dL Total Bilirubin 1.0 (0.2-1.3) mg/dL AST 25 (14-36) U/L ALT 16 (4-34) U/L Alkaline Phosphatase 116 (38-126) U/L Total Protein 7.6 (6.3-8.2) g/dL Albumin 4.6 (3.5-5.0) g/dL Lipase 55 (23-300) U/L Urine Color Yellow Urine Appearance Clear (Clear) Urine pH 7.0 (5.0-8.0) Ur Specific Williams 1.025 (1.001-1.035) Urine Protein Trace H (Negative) Urine Glucose (UA) Negative (Negative) Urine Ketones 2+ H (Negative) Urine Blood Negative (Negative) Urine Nitrite Negative (Negative) Urine Bilirubin Negative (Negative) Urine Urobilinogen <2.0 (<2.0) mg/dL Ur Leukocyte Esterase Trace H (Negative) Urine RBC 1 (0-5) /hpf Urine WBC 3 (0-5) /hpf Ur Squamous Epith Cells 2 (0-4) /hpf Urine Mucus Many H (None) /hpf Coronavirus (PCR) (Not Detectd) 11/16/19 Range/Units 13:47 WBC (3.8-10.6) k/uL RBC (3.80-5.40) m/uL Hgb (11.4-16.0) gm/dL Hct (34.0-46.0) % MCV (80.0-100.0) fL MCH (25.0-35.0) pg MCHC (31.0-37.0) g/dL RDW (11.5-15.5) % Plt Count (150-450) k/uL Neutrophils % % Lymphocytes % % Monocytes % % Eosinophils % % Basophils % % Neutrophils # (1.3-7.7) k/uL Lymphocytes # (1.0-4.8) k/uL Monocytes # (0-1.0) k/uL Eosinophils # (0-0.7) k/uL Basophils # (0-0.2) k/uL Sodium (137-145) mmol/L Potassium (3.5-5.1) mmol/L Chloride (98-107) mmol/L Carbon Dioxide (22-30) mmol/L Anion Gap mmol/L BUN (7-17) mg/dL Creatinine (0.52-1.04) mg/dL Est GFR (CKD-EPI)AfAm (>60 ml/min/1.73 sqM) Est GFR (CKD-EPI)NonAf (>60 ml/min/1.73 sqM) Glucose (74-99) mg/dL Calcium (8.4-10.2) mg/dL Total Bilirubin (0.2-1.3) mg/dL AST (14-36) U/L ALT (4-34) U/L Alkaline Phosphatase (38-126) U/L Total Protein (6.3-8.2) g/dL Albumin (3.5-5.0) g/dL Lipase (23-300) U/L Urine Color Urine Appearance (Clear) Urine pH (5.0-8.0) Ur Specific Williams (1.001-1.035) Urine Protein (Negative) Urine Glucose (UA) (Negative) Urine Ketones (Negative) Urine Blood (Negative) Urine Nitrite (Negative) Urine Bilirubin (Negative) Urine Urobilinogen (<2.0) mg/dL Ur Leukocyte Esterase (Negative) Urine RBC (0-5) /hpf Urine WBC (0-5) /hpf Ur Squamous Epith Cells (0-4) /hpf Urine Mucus (None) /hpf Coronavirus (PCR) Not Detected (Not Detectd) - Radiology Data Radiology results: report reviewed, image reviewed KUB x-ray was obtained. Report was reviewed in its entirety. Impression by Dr. Shepherd shows overall nonobstructive bowel gas pattern. Disposition Clinical Impression: Vomiting Disposition: HOME SELF-CARE Condition: Good Instructions (If sedation given, give patient instructions): Acute Nausea and Vomiting (ED) Additional Instructions: Start with clear liquid diet and advance as tolerated. Take medications as directed. Follow-up through primary care physician for recheck in 1-2 days. Return to the emergency department immediately for any new, worsening, or concerning symptoms. Prescriptions: Ondansetron [Zofran ODT] 4 mg PO Q8HR PRN #10 tab PRN Reason: Nausea Is patient prescribed a controlled substance at d/c from ED?: No Referrals: Vahe Walsh MD [Primary Care Provider] - 1-2 days Time of Disposition: 15:50
[2019-11-16 16:13] VITALS: BP 136/70; PULSE 68; TEMP 97.3
== END 2019-11-16 16:13 | disposition home or self-care (01) ==
LOC: EC 13:10
DX: Z03.818 Encounter for observation for suspected exposure to other biological agents ruled out (principal); R11.2 Nausea with vomiting, unspecified; F32.9 Major depressive disorder, single episode, unspecified; M79.7 Fibromyalgia; M19.90 Unspecified osteoarthritis, unspecified site; I34.1 Nonrheumatic mitral (valve) prolapse; Z79.02 Long term (current) use of antithrombotics/antiplatelets; Z79.899 Other long term (current) drug therapy; Z88.2 Allergy status to sulfonamides; Z88.5 Allergy status to narcotic agent; Z88.8 Allergy status to other drugs, medicaments and biological substances; Z87.19 Personal history of other diseases of the digestive system; Z87.442 Personal history of urinary calculi; Z90.49 Acquired absence of other specified parts of digestive tract; Z86.73 Personal history of transient ischemic attack (TIA), and cerebral infarction without residual deficits; Z85.3 Personal history of malignant neoplasm of breast; Z90.11 Acquired absence of right breast and nipple; Z98.890 Other specified postprocedural states
CPT/HCPCS: 99284; 96374; 96375; 96361; 36415; 80053; 83690; 85025; 81001; 87635; 74018; J1200; J2405

== ENCOUNTER 2019-11-19 13:05 | Inpatient (IN) | payer OTHER ==
[2019-11-19 13:22] LABS: Glucose,Whole Blood 114 mg/dL (75-99)
[2019-11-19] MEDS ORDERED: KETOROLAC 30 MG/ML 1 ML VIAL IVP STA (13:34)
--- NOTE | 2019-11-19 13:40 | ED ---
Chest Pain HPI - General Chief Complaint: Chest Pain Stated Complaint: Nausea Time Seen by Provider: 11/19/19 13:05 Source: patient, EMS, RN notes reviewed, old records reviewed Mode of arrival: EMS Limitations: no limitations - History of Present Illness Initial Comments: Is a 64-year-old female with a history of peptic ulcer disease GERD right wrist cancer kidney stones and who was here in the emergency department on the of this month for nausea vomiting who presents today with the onset of left-sided stabbing sharp chest pain 10/10 severity radiates from her left upper chest around to her left shoulder. He states she does have some shortness of breath with it no cough no fevers chills sweats no phlegm production no trauma reported. She call 911 and was brought in by EMS. MD Complaint: chest pain - Related Data Home Medications Medication Instructions Recorded Confirmed Desvenlafaxine Succinate [Pristiq 100 mg PO QAM 12/14/13 11/19/19 ER] Clopidogrel Bisulfate [Plavix] 75 mg PO DAILY 09/09/19 11/19/19 Acyclovir [Zovirax] 400 mg PO DAILY 11/19/19 11/19/19 Amoxic-Pot Clav 875-125Mg 1 tab PO BID 11/19/19 11/19/19 [Augmentin 875-125] Previous Rx's Medication Instructions Recorded Omeprazole 40 mg PO DAILY #60 capsule. 02/17/19 Allergies Allergy/AdvReac Type Severity Reaction Status Date / Time hydromorphone HCl Allergy Severe LOW HEART Verified 11/19/19 14:20 [From Dilaudid] RATE iron sucrose complex Allergy Severe HAD MINI Verified 11/19/19 14:20 [From Venofer] STROKE AFTER INFUSION meperidine HCl [From Demerol] Allergy Intermediate Nausea & Verified 11/19/19 14:20 Vomiting morphine Allergy Intermediate Nausea & Verified 11/19/19 14:20 Vomiting Sulfa (Sulfonamide Allergy Mild Itching Verified 11/19/19 14:20 Antibiotics) Review of Systems ROS Statement: Those systems with pertinent positive or pertinent negative responses have been documented in the HPI. ROS Other: All systems not noted in ROS Statement are negative. EKG Findings - EKG Results: EKG: interpreted by SAMUEL, sinus rhythm (Sinus rhythm rate of 51. Interval 132 QRS duration 74 QT since QTC 516/or [address]-T wave changes) Past Medical History Past Medical History: Cancer, CVA/TIA, Fibromyalgia, GERD/Reflux, Memory Impairment, Mitral Valve Prolapse (MVP), Osteoarthritis (OA), Pneumonia, Renal Disease Additional Past Medical History / Comment(s): HIATAL HERNIA, CVA X2, NO RESIDUAL, HX STAGE 3 RIGHT BREAST CANCER - 2013, hx Kidney stones, Sjogren's, anemia, MENINGITIS, IBS, poor circulation bilateral legs, numbness in toes. History of Any Multi-Drug Resistant Organisms: None Reported Past Surgical History: Adenoidectomy, Breast Surgery, Cholecystectomy, Hysterectomy, Orthopedic Surgery, Tonsillectomy Additional Past Surgical History / Comment(s): FALLOPIAN TUBES AND A MASS REMOVED, hiatel hernia repair X2, ARTHOSCOPIES ON KNEES, right masectomy, bilateral cataracts, SX FOR PTOSIS(eyelids), right hand sugery/carpal tunnel and arthroplasty. Past Anesthesia/Blood Transfusion Reactions: No Reported Reaction Additional Past Anesthesia/Blood Transfusion Reaction / Comment(s): PT HAS RECIEVED BLOOD WITH NO REACTION. Past Psychological History: Anxiety, Depression Smoking Status: Never smoker Past Alcohol Use History: Occasional Past Drug Use History: None Reported - Past Family History Father Family Medical History: Hypertension, Myocardial Infarction ([place]), Prostate Disorder, Thyroid Disorder Daughter(s) Family Medical History: Blood Disorder Additional Family Medical History / Comment(s): Factor 5. Mother Family Medical History: AFIB, Cancer Additional Family Medical History / Comment(s): Breast cancer. General Exam - General Exam Comments Initial Comments: This is a well-developed well-nourished awake alert oriented 3 female Limitations: no limitations General appearance: alert, in no apparent distress Head exam: Present: atraumatic, normocephalic, normal inspection Eye exam: Present: normal appearance, PERRL, EOMI. Absent: scleral icterus, conjunctival injection, periorbital swelling ENT exam: Present: mucous membranes dry Neck exam: Present: normal inspection. Absent: tenderness, meningismus, lymphadenopathy Respiratory exam: Present: normal lung sounds bilaterally, chest wall tenderness (Some mild tenderness palpation of the left upper chest wall over the costal chondral margin no step-off or crepitation). Absent: respiratory distress, wheezes, rales, rhonchi, stridor Cardiovascular Exam: Present: regular rate, normal rhythm, normal heart sounds. Absent: systolic murmur, diastolic murmur, rubs, gallop, clicks GI/Abdominal exam: Present: soft, normal bowel sounds. Absent: distended, tenderness, guarding, rebound, rigid Extremities exam: Present: normal inspection, full ROM, normal capillary refill. Absent: tenderness, pedal edema, joint swelling, calf tenderness Back exam: Present: normal inspection Neurological exam: Present: alert, oriented X3, CN II-XII intact Psychiatric exam: Present: normal affect, normal mood Skin exam: Present: warm, dry, intact, normal color. Absent: rash Course Vital Signs 11/19/19 11/19/19 11/19/19 13:11 13:15 14:40 Temperature 98.5 F Pulse Rate 62 61 Respiratory 18 20 18 Rate Blood Pressure 182/97 158/86 O2 Sat by Pulse 98 100 Oximetry - Reevaluation(s) Reevaluation #1: 11/19/19 15:12 80 did get some improvement from her chest pain with the Toradol but she still states is about a 7 Chest Pain MDM - MDM Imaging reviewed some questionable right perihilar infiltrate however the patient has no fevers chills sweats cough or elevated white blood cell count. He was a poor inspiratory film. I did discuss findings the patient as well as with Dr. Carrillo. Patient will be admitted with cardiology consultation Disposition Clinical Impression: Unstable angina pectoris, Elevated troponin, Chest wall pain Disposition: ADMITTED IP TO THIS [facility] Condition: Fair Referrals: Vahe Walsh MD [Primary Care Provider] - 1-2 days
--- NOTE | 2019-11-19 13:52 | XR ---
EXAMINATION TYPE: XR chest 2V DATE OF EXAM: 11/19/2019 HISTORY: Chest Pain. REFERENCE: Previous study dated 06/23/2014. FINDINGS: There is a right infrahilar infiltrate. The left lung is clear. Pleural spaces are clear. H eart size is upper limits of normal. IMPRESSION: RIGHT INFRAHILAR INFILTRATE.
[2019-11-19 13:57] LABS: Basophils % (A) 0 %; Eosinophils % (A) 0 %; HCT 40.7 % (34.0-46.0); HGB 13.9 gm/dL (11.4-16.0); Lymphocytes % (A) 19 %; MCH 30.1 pg (25.0-35.0); MCHC 34.2 g/dL (31.0-37.0); MCV 88.1 fL (80.0-100.0); Mean Platelet Volume 7.7; Monocytes # (A) 0.3 k/uL (0-1.0); Monocytes % (A) 7 %; Neutrophils # (A) 3.6 k/uL (1.3-7.7); Neutrophils % (A) 71 %; Platelet Count 194 k/uL (150-450); RBC 4.62 m/uL (3.80-5.40); RDW 12.3 % (11.5-15.5); WBC 5.1 k/uL (3.8-10.6)
[2019-11-19 14:13] LABS: ALT 17 U/L (4-34); African American GFR (CKD) >90 (>60 ml/min/1.73 sqM); Albumin 4.2 g/dL (3.5-5.0); Anion Gap 8 mmol/L; Blood Urea Nitrogen 16 mg/dL (7-17); Calcium 9.1 mg/dL (8.4-10.2); Carbon Dioxide 24 mmol/L (22-30); Chloride 104 mmol/L (98-107); Creatine Kinase 95 U/L (30-135); Glucose 116 mg/dL (74-99); Non-African American GFR(CKD) >90 (>60 ml/min/1.73 sqM); Sodium 136 mmol/L (137-145); Total Bilirubin 1.1 mg/dL (0.2-1.3); Total Protein 7.2 g/dL (6.3-8.2)
[2019-11-19 14:16] LABS: AST 33 U/L (14-36); Alkaline Phosphatase 85 U/L (38-126); Magnesium 1.7 mg/dL (1.6-2.3); Potassium 3.8 mmol/L (3.5-5.1)
[2019-11-19 14:20] LABS: D-Dimer 0.2 mg/L FEU (<0.60); INR 1.1 (<1.2); Prothrombin Time 11.5 sec (9.0-12.0)
[2019-11-19 14:35] LABS: Partial Thromboplastin Time 21.1 sec (22.0-30.0)
[2019-11-19] MEDS ORDERED: NITROGLYCERIN OINT 1 INCH/GM PACKET TOPICAL STA (14:37)
[2019-11-19] MEDS ORDERED: fentaNYL (PF) 50 MCG/ML 2 ML AMP IV STA (15:05)
[2019-11-19] MEDS ORDERED: HEPARIN SODIUM,PORCINE 5,000 UNIT/ML 1 ML VIAL IV ONE (15:06)
[2019-11-19] MEDS ORDERED: HEPARIN SODIUM,PORCINE 5,000 UNIT/ML 1 ML VIAL IV PRN (15:06)
[2019-11-19] MEDS ORDERED: NITROGLYCERIN SL TABS 0.4 MG TAB SUBLINGUAL PRN (15:15)
[2019-11-19] MEDS ORDERED: HEPARIN SOD,PORK IN 0.45% NACL 25,000 UNIT in 0.45% NACL 1 250ML.BAG IV SCH (15:15)
--- NOTE | 2019-11-19 15:22 | ED ---
Medical Decision Making - Lab Data Result diagrams: 11/19/19 13:02 11/19/19 13:02 Lab Results 11/19/19 11/19/19 11/19/19 Range/Units 13:02 13:02 13:02 WBC 5.1 (3.8-10.6) k/uL RBC 4.62 (3.80-5.40) m/uL Hgb 13.9 (11.4-16.0) gm/dL Hct 40.7 (34.0-46.0) % MCV 88.1 (80.0-100.0) fL MCH 30.1 (25.0-35.0) pg MCHC 34.2 (31.0-37.0) g/dL RDW 12.3 (11.5-15.5) % Plt Count 194 (150-450) k/uL Neutrophils % 71 % Lymphocytes % 19 % Monocytes % 7 % Eosinophils % 0 % Basophils % 0 % Neutrophils # 3.6 (1.3-7.7) k/uL Lymphocytes # 1.0 (1.0-4.8) k/uL Monocytes # 0.3 (0-1.0) k/uL Eosinophils # 0.0 (0-0.7) k/uL Basophils # 0.0 (0-0.2) k/uL PT 11.5 (9.0-12.0) sec INR 1.1 (<1.2) APTT 21.1 L (22.0-30.0) sec D-Dimer 0.20 (<0.60) mg/L FEU Sodium 136 L (137-145) mmol/L Potassium 3.8 (3.5-5.1) mmol/L Chloride 104 (98-107) mmol/L Carbon Dioxide 24 (22-30) mmol/L Anion Gap 8 mmol/L BUN 16 (7-17) mg/dL Creatinine 0.66 (0.52-1.04) mg/dL Est GFR (CKD-EPI)AfAm >90 (>60 ml/min/1.73 sqM) Est GFR (CKD-EPI)NonAf >90 (>60 ml/min/1.73 sqM) Glucose 116 H (74-99) mg/dL POC Glucose (mg/dL) (75-99) mg/dL POC Glu Marketing Coordinator ID Calcium 9.1 (8.4-10.2) mg/dL Magnesium 1.7 (1.6-2.3) mg/dL Total Bilirubin 1.1 (0.2-1.3) mg/dL AST 33 (14-36) U/L ALT 17 (4-34) U/L Alkaline Phosphatase 85 (38-126) U/L Creatine Kinase 95 (30-135) U/L Troponin I (0.000-0.034) ng/mL NT-Pro-B Natriuret Pep pg/mL Total Protein 7.2 (6.3-8.2) g/dL Albumin 4.2 (3.5-5.0) g/dL Lipase 99 (23-300) U/L 11/19/19 11/19/19 11/19/19 Range/Units 13:02 13:02 13:19 WBC (3.8-10.6) k/uL RBC (3.80-5.40) m/uL Hgb (11.4-16.0) gm/dL Hct (34.0-46.0) % MCV (80.0-100.0) fL MCH (25.0-35.0) pg MCHC (31.0-37.0) g/dL RDW (11.5-15.5) % Plt Count (150-450) k/uL Neutrophils % % Lymphocytes % % Monocytes % % Eosinophils % % Basophils % % Neutrophils # (1.3-7.7) k/uL Lymphocytes # (1.0-4.8) k/uL Monocytes # (0-1.0) k/uL Eosinophils # (0-0.7) k/uL Basophils # (0-0.2) k/uL PT (9.0-12.0) sec INR (<1.2) APTT (22.0-30.0) sec D-Dimer (<0.60) mg/L FEU Sodium (137-145) mmol/L Potassium (3.5-5.1) mmol/L Chloride (98-107) mmol/L Carbon Dioxide (22-30) mmol/L Anion Gap mmol/L BUN (7-17) mg/dL Creatinine (0.52-1.04) mg/dL Est GFR (CKD-EPI)AfAm (>60 ml/min/1.73 sqM) Est GFR (CKD-EPI)NonAf (>60 ml/min/1.73 sqM) Glucose (74-99) mg/dL POC Glucose (mg/dL) 114 H (75-99) mg/dL POC Glu Marketing Coordinator ID Ailyn Marshall Calcium (8.4-10.2) mg/dL Magnesium (1.6-2.3) mg/dL Total Bilirubin (0.2-1.3) mg/dL AST (14-36) U/L ALT (4-34) U/L Alkaline Phosphatase (38-126) U/L Creatine Kinase (30-135) U/L Troponin I 0.116 H* (0.000-0.034) ng/mL NT-Pro-B Natriuret Pep 540 pg/mL Total Protein (6.3-8.2) g/dL Albumin (3.5-5.0) g/dL Lipase (23-300) U/L Critical Care Time Critical Care Time: Yes Critical Care Time: Critical care time 31 minutes: Vertigo minutes of critical care time including initial presentation with history physical labs x-rays discussed with paramedics about the patient multiple reevaluation patient response to therapy discuss with the patient review of old charting discussed with Dr. Carrillo admission orders and documentation of the above Disposition Clinical Impression: Unstable angina pectoris, Elevated troponin, Chest wall pain Disposition: ADMITTED IP TO THIS [facility] Condition: Fair Referrals: Vahe Walsh MD [Primary Care Provider] - 1-2 days
[2019-11-19] MEDS: SODIUM CHLORIDE 0.9% 1,000 ML IV SCH (15:46)
[2019-11-19] MEDS: AMOXIC-POT CLAV 875-125MG 1 EACH TAB PO SCH (23:22)
[2019-11-20 07:37] LABS: Basophils % (A) 0 %; Eosinophils # (A) 0.1 k/uL (0-0.7); Eosinophils % (A) 1 %; HCT 37.8 % (34.0-46.0); HGB 13.1 gm/dL (11.4-16.0); Lymphocytes # (A) 1.4 k/uL (1.0-4.8); Lymphocytes % (A) 26 %; MCHC 34.5 g/dL (31.0-37.0); Mean Platelet Volume 7.9; Monocytes # (A) 0.3 k/uL (0-1.0); Monocytes % (A) 6 %; Neutrophils # (A) 3.6 k/uL (1.3-7.7); Neutrophils % (A) 65 %; Platelet Count 167 k/uL (150-450); RBC 4.35 m/uL (3.80-5.40); RDW 12.2 % (11.5-15.5); WBC 5.5 k/uL (3.8-10.6)
[2019-11-20 07:39] LABS: Cholesterol 162 mg/dL (<200); HDL Cholesterol 61 mg/dL (40-60); LDL Cholesterol,Calculated 87 mg/dL (0-99); Triglycerides 72 mg/dL (<150)
[2019-11-20] MEDS ORDERED: ALPRAZolam 0.5 MG TAB PO PRN (08:07)
[2019-11-20] MEDS ORDERED: ALPRAZolam 0.25 MG TAB PO PRN (08:07)
[2019-11-20] MEDS ORDERED: ATORVASTATIN 80 MG TAB PO STA (08:07)
[2019-11-20] MEDS ORDERED: SODIUM CHLORIDE 0.9% 1,000 ML in EMPTY BAG 1 BAG IV ONE (08:07)
[2019-11-20 08:28] LABS: African American GFR (CKD) >90 (>60 ml/min/1.73 sqM); Anion Gap 10 mmol/L; Blood Urea Nitrogen 22 mg/dL (7-17); Calcium 9.5 mg/dL (8.4-10.2); Carbon Dioxide 20 mmol/L (22-30); Chloride 110 mmol/L (98-107); Glucose 103 mg/dL (74-99); Non-African American GFR(CKD) 82 (>60 ml/min/1.73 sqM); Potassium 4.9 mmol/L (3.5-5.1); Sodium 140 mmol/L (137-145)
--- NOTE | 2019-11-20 08:57 | CONS ---
CONSULTATION This is a lady with a history of hypertension and fibromyalgia. This lady sees Dr. Walsh in the outpatient setting. She has had some issues with fibromyalgia pain on and off. Apparently last week she came into the hospital with nausea, vomiting, also had some nondescript chest pain, but this was not seen on the note. However, she was discharged home after the nausea was resolved and she has continued to have more nausea after she went home. She felt better for a couple of days and she is back here this time complaining of discomfort in the chest which she describes as a squeezing feeling in the left anterior chest and radiates somewhat to the back. She also felt nauseated when she had the discomfort and the pain seemed to have gotten better, but again this morning she is complaining of some discomfort as well. At the time of my evaluation, this lady is definitely more comfortable, but indicates to me that earlier today she felt pressure and squeezing sensation in the chest. Her troponin has gone up to 5.0 or more. She has history of gastroesophageal reflux disease and breast cancer with a right mastectomy. Her nausea somehow has improved. She denies any palpitations or syncope. She has been taking Plavix. The details for this are somewhat unclear. She carries a diagnosis of a TIA/CVA with some memory impairment, mitral valve prolapse and past history of pneumonia. She is status post some orthopedic surgery, cholecystectomy, breast surgery for cancer, right mastectomy. MEDICATIONS: At home include she takes: Omeprazole 40 mg daily. She takes Pristiq, Plavix 75 mg daily, and Augmentin. ALLERGIES: SHE IS ALLERGIC TO DILAUDID AND MORPHINE AND SULFA. EKG revealed sinus mechanism with mild ST depression in the lateral leads on the initial EKG. Subsequent EKG does not reveal the depression. LABORATORY DATA: Suggests her troponin is up to 5.3 this morning suggestive of a non-ST elevation [place]. She is resting comfortably at the time of my evaluation, but did have discomfort earlier in the day. PHYSICAL EXAMINATION: Blood pressure is 140/70, pulse rate is 56 per minute, regular. HEENT unremarkable. Fundus was not examined by me. Neck is supple. There is no JVD. I do not hear a carotid bruit. There is no thyromegaly. Heart exam reveals S1, S2 heard normally. There is no significant rub, murmur or gallop. Lungs are clear. Abdomen is soft, nontender. Lower extremities reveal normal pulses. No edema. Central nervous system is grossly within normal limits. EKG revealed sinus mechanism with mild ST depression in lateral leads initial EKG, subsequent EKG did not. IMPRESSION: 1. Non-ST elevation myocardial infarction. 2. Nausea, vomiting, which seems to have improved. 3. History of fibromyalgia. 4. History of breast cancer. Right mastectomy. RECOMMENDATION: I am recommending that we perform coronary angiography today. Heart rate is in the 50s. I will hold off on the beta estefanía for now. Continue IV heparin and proceed with coronary angiography and PCI if indicated. The rationale, risks, benefits, options were explained to the patient and I also spoke to her son by phone. They understand, agree, and wished to proceed. Patient also carries a diagnosis of mitral valve prolapse syndrome as well in the past. MMODL / IJN: [id number] /
[2019-11-20] MEDS ORDERED: ASPIRIN 325 MG TAB PO SCH (09:00)
[2019-11-20] MEDS: PANTOPRAZOLE 40 MG TABLET PO SCH (09:12)
[2019-11-20] MEDS: ASPIRIN 81 MG PO SCH (09:12)
[2019-11-20] MEDS: CLOPIDOGREL 75 MG TAB PO SCH (09:12)
[2019-11-20] MEDS: AMOXIC-POT CLAV 875-125MG 1 EACH TAB PO SCH ×3 (09:13→22:51)
[2019-11-20] MEDS: DESVENLAFAXINE SUCCINATE 50 MG TAB.ER.24H PO SCH (09:13)
[2019-11-20] MEDS: ACYCLOVIR 400 MG/10 ML CUP PO SCH (09:14)
[2019-11-20] MEDS: METOPROLOL TARTRATE 12.5 MG TAB PO STA (09:15)
[2019-11-20 10:35] LABS: Glucose,Whole Blood 77 mg/dL (75-99)
[2019-11-20] MEDS ORDERED: LIDOCAINE 1% INJ 10MG/ML (20 ML MDV) ONE (10:38)
[2019-11-20] MEDS ORDERED: VERAPAMIL 2.5 MG/ML 2 ML AMP ONE (11:03)
[2019-11-20] MEDS ORDERED: NITROGLYCERIN SL TABS 0.4 MG TAB SUBLINGUAL ONE ×4 (11:22→11:45)
[2019-11-20] MEDS ORDERED: LIDOCAINE 1% INJ 10MG/ML (20 ML MDV) SQ ONE (11:25)
[2019-11-20] MEDS ORDERED: MIDAZOLAM 2 MG/2 ML VIAL IVP ONE (11:25)
[2019-11-20] MEDS ORDERED: IV FLUID CONTINUATION 900 ML IV ONE (11:28)
[2019-11-20] MEDS ORDERED: VERAPAMIL SYRINGE (5 MG/10 ML) INTRAARTER ONE (11:28)
[2019-11-20] MEDS ORDERED: HEPARIN SODIUM 1,000 UN/ML (10ML VL) IV ONE (11:31)
[2019-11-20] MEDS ORDERED: IOPAMIDOL-370 100ML BTL INJ ONE (11:44)
[2019-11-20] MEDS ORDERED: RX INFO: IV CONTRAST WAS GIVEN 1 EACH MISC MISCELLANE PRN (11:52)
[2019-11-20] MEDS: SODIUM CHLORIDE 0.9% 1,000 ML IV SCH (12:00)
--- NOTE | 2019-11-20 13:00 | CC ---
CARDIAC CATHETERIZATION REPORT DATE OF SERVICE: 11/20/2019 PROCEDURE PERFORMED: Left heart catheterization, coronary angiography, and left ventriculography. PERFORMED BY: Dr. Shai Pro. SEDATION: Moderate conscious sedation time was 23 minutes. Patient was administered Versed. His oxygen saturation, hemodynamics, and EKG were monitored closely. CLINICAL INFORMATION: Mrs. Deepthi Deal is a 64-year-old lady with a history of fibromyalgia, question of TIA in the past on Plavix. She came to the hospital with nausea, chest pain, and had troponin elevation of more than 5.[address] depression initial EKG. In view of this she was advised cardiac catheterization after due discussion regarding risks, benefits, and options. PROCEDURE NOTE: SEDATION: Moderate conscious sedation time was 95 minutes. Patient was administered Versed and Dilaudid. His oxygen saturation,hemodynamics and EKG were monitored closely. I used a JL3.5 and JR4.0 catheter and with this combination I performed coronary angiography and a pigtail catheter was used to check LV pressures and LV gram was performed in 30- degree YODER position. The patient tolerated the procedure well without complication. The sheath was taken out and a TR band applied as per protocol with the saturation of the fingers of the right hand of 97%. MODERATE CONSCIOUS SEDATION TIME: 23 minutes. CARDIAC CATHETERIZATION FINDINGS: The left ventricular end-diastolic pressure was about 5 mmHg without any gradient across the aortic valve. CORONARY ANGIOGRAPHY FINDINGS: RIGHT CORONARY ARTERY: Technically, a very dominant vessel. No significant disease. Distally bifurcates into PDA and PLV, both of which have minor irregularities, no significant disease is noted. LEFT MAIN CORONARY ARTERY: This is a short, patent vessel free of significant disease that bifurcates into LAD and circumflex. LEFT ANTERIOR DESCENDING CORONARY ARTERY: Good caliber vessel extends along the anterior wall, gives off septal and diagonal branches and in the midportion a large diagonal branch runs all the way to the apex, it curves over the apex to supply the inferoapical portion of the left ventricle. No significant disease in the left anterior descending coronary artery system. LEFT POSTERIOR CIRCUMFLEX CORONARY ARTERY: Nondominant vessel gives off a good size obtuse marginal that runs laterally. There is a small AV node branch that has mild diffuse disease. There is a secondary distal circumflex branch after the obtuse marginal, which comes off and is about 2 mm in caliber. This then divides into two branches, one of the inferior branches is subtotally occluded and this appears to be the culprit lesion. The caliber of the vessel is about 1 to 1.5 mm. Subtotal occlusion with some haziness, could be thrombus. Distally, there is not much outflow of this vessel and the vessel gets smaller beyond the 1.5 caliber at the site of occlusion. This is, therefore, the culprit lesion but the caliber of the vessel is small, distribution is small, outflow is small and I do not believe it will benefit from intervention. LEFT VENTRICULOGRAM: This was performed in 30-degree YODER projection, revealed a left ventricular which is of normal size with good systolic function. Estimated ejection fraction of about 60% without mitral regurgitation. There was some ventricular ectopy. FINAL IMPRESSION: This patient has a right dominant system, normal filling pressures, no gradient across the aortic valve. A small branch off the distal circumflex has a subtotal occlusion and the vessel is 1 to 1.5 mm or less and this is the culprit lesion. LAD and dominant RCA are free of significant disease. There are no other areas of disease in the circumflex system. RECOMMENDATIONS: Findings were discussed with the patient. I also spoke to her son by phone. For the size of the artery and the amount of myocardium, I believe continued medical therapy would be the best approach and would place her on a combination of aspirin, Plavix, beta blockers, losartan, and also statin agents. She will be discharged in the next 24 to 48 hours. My results were discussed with the patient and family and she was sent to the room in stable condition. MMODL / IJN: [id number] /
[2019-11-20] MEDS: ACETAMINOPHEN TAB 325 MG TAB PO PRN (16:55)
[2019-11-20] MEDS: ONDANSETRON 4 MG TAB PO PRN (16:55)
--- NOTE | 2019-11-20 21:29 | P.HPIM ---
History of Present Illness H&P Date: 11/19/19 Chief Complaint: Chest pain and angina, mildly elevated troponin, history of CVA, fibromyalg 64-year-old female one of Dr. Olsen patient with past medical history of peptic ulcer disease, CVA, fibromyalgia, GERD and recurrent kidney stone who presented to demurs department second time in 3 days at [facility] complaining of mild nausea vomiting patient developed to have significant left-sided stabbing chest pain and discomfort was 10 out of 10 radiating to the left upper chest area on left shoulder blade with mild nausea feeing with mild palliation lightheaded cold sweat she end up calling 911 and brought to the ER room via EMS. Patient was seen and evaluated her EKG didn't show any major of rheumatoid change, laboratory values showed mildly elevated troponin. With patient high risk and current change decided to admit patient to observation consult cardi ology CK with troponin 3 will be done patient might go for an echocardiogram depend on the value of the troponin the next 24 hours can either go for stress test or heart catheter at all dependent. Review of Systems CONSTITUTIONAL: Well-developed no acute respiratory distress. EYES: No icterus sclerae, no conjunctivitis. EARS, NOSE, MOUTH, THROAT, and FACE: No sore throat, lymphadenopathy, carotid bruits or deformity. RESPIRATORY: No SOB cough or wheezes. CARDIOVASCULAR: Positive chest pain mild palpitation no cough or wheezes GASTROINTESTINAL: Mild abdominal discomfort with mostly nausea no vomiting positive slight increase heartburn and indigestion. GENITOURINARY: Negative for Hematuria or UTI, no kidney stones. INTEGUMENT/BREAST: Negative for any muscular injury with mild osteoarthritis.. HEMATOLOGIC/LYMPHATIC: Negative for bleed or purpura. MUSCULOSKELTAL: Negative for Myalgia or arthralgia. NEURLOGICAL: No LOC, Sz or syncope, blurred vision dizziness or abnormality.. BEHAVIORAL/PSYCH: Negative. ENDOCRINE: Negative. Past Medical History Past Medical History: Cancer, CVA/TIA, Fibromyalgia, GERD/Reflux, Memory Im pairment, Mitral Valve Prolapse (MVP), Osteoarthritis (OA), Pneumonia Additional Past Medical History / Comment(s): HIATAL HERNIA, CVA X2, NO RESIDUAL, HX STAGE 3 RIGHT BREAST CANCER - 2013, hx Kidney stones, Sjogren's, anemia, MENINGITIS, IBS, poor circulation bilateral legs, numbness in toes. History of Any Multi-Drug Resistant Organisms: None Reported Past Surgical History: Adenoidectomy, Breast Surgery, Cholecystectomy, Hysterectomy, Orthopedic Surgery, Tonsillectomy Additional Past Surgical History / Comment(s): FALLOPIAN TUBE AND A MASS REMOVED, hiatel hernia repair X2, ARTHOSCOPIES ON KNEES, right masectomy, bilateral cataracts, SX FOR PTOSIS(eyelids), FABRICIO hand sugery/carpal tunnel and arthroplasty. Past Anesthesia/Blood Transfusion Reactions: No Reported Reaction Additional Past Anesthesia/Blood Transfusion Reaction / Comment(s): PT HAS RECIEVED BLOOD WITH NO REACTION. Smoking Status: Never smoker - Past Family History Father Family Medical History: Hypertension, Myocardial Infarction ([place]), Prostate Disorder, Thyroid Disorder Daughter(s) Family Medical History: Blood Disorder Additional Family Medical History / Comment(s): Factor 5. Mother Family Medical History: AFIB, Cancer Additional Family Medical History / Comment(s): Breast cancer. Medications and Allergies Home Medications Medication Instructions Recorded Confirmed Type Desvenlafaxine Succinate [Pristiq 100 mg PO QAM 12/14/13 11/19/19 History ER] Omeprazole 40 mg PO DAILY #60 capsule. 02/17/19 11/19/19 Rx Clopidogrel Bisulfate [Plavix] 75 mg PO DAILY 09/09/19 11/19/19 History Acyclovir [Zovirax] 400 mg PO DAILY 11/19/19 11/19/19 History Amoxic-Pot Clav 875-125Mg 1 tab PO BID 11/19/19 11/19/19 History [Augmentin 875-125] Allergies Allergy/AdvReac Type Severity Reaction Status Date / Time hydromorphone HCl Allergy Severe LOW HEART Verified 11/19/19 14:20 [From Dilaudid] RATE iron sucrose complex Allergy Severe HAD MINI Verified 11/19/19 14:20 [From Venofer] STROKE AFTER INFUSION meperidine HCl [From Demerol] Allergy Intermediate Nausea & Verified 11/19/19 14:20 Vomiting morphine Allergy Intermediate Nausea & Verified 11/19/19 14:20 Vomiting Sulfa (Sulfonamide Allergy Mild Itching Verified 11/19/19 14:20 Antibiotics) Physical Exam Vitals: Vital Signs Temp Pulse Pulse Resp BP BP Pulse Ox 11/19/19 17:14 16 11/19/19 17:12 98.4 F 61 16 166/77 100 11/19/19 16:00 58 L 17 172/92 99 11/19/19 15:46 60 18 172/92 98 11/19/19 15:30 44 L 18 162/90 100 11/19/19 15:00 65 18 158/86 100 11/19/19 14:40 61 18 158/86 100 11/19/19 14:30 55 L 17 163/89 100 11/19/19 14:00 46 L 17 161/81 100 11/19/19 13:30 52 L 18 182/97 100 11/19/19 13:15 20 11/19/19 13:11 98.5 F 62 18 182/97 98 Intake and Output 11/19/19 11/19/19 11/19/19 06:59 14:59 22:59 Intake Total 240 Output Total 300 Balance -60 Intake: Intake, IV Titration 240 Amount Sodium Chloride 0.9% 1, 240 000 ml @ 20 mls/hr IV . Q24H [facility] Rx#:[id number] Output: Urine 300 Other: Voiding Method Toilet # Voids 1 Weight 74.389 kg 74.389 kg General Appearance: Alert, cooperative, no distress, appears stated age. Neck HEENT: Supple, no lymphadenopathy, no thyroid enlargement, no carotid bruits. Lungs: Clear to auscultation without crackles or wheezes no rhonchi, no deformity. Chest Wall: Chest wall normal expansion with deep inspiration no tenderness and no deformity was found on exam, no costochondral pain or discomfort. Heart: Regular rate and rhythm, S1, S2 normal, no murmur, rub or gallop. Back: Symmetric, no curvature, ROM normal, no CVA tenderness. Abdomen: Soft, non-tender, bowel sounds active all four quadrants, no masses, no organomegaly. Extremities: Extremities normal, atraumatic, no cyanosis or edema. Pulses: 2+ and symmetric. Skin: Skin color, texture, tugor normal, no rashes or lesions. Neurologic: Alert oriented x3 cranial nerves II through XII intact, no motor deficit, no abnormal balance or gait. Results CBC & Chem 7: 11/20/19 07:10 11/20/19 07:10 Labs: Abnormal Lab Results - Last 24 Hours (Table) 11/19/19 11/19/19 11/19/19 Range/Units 13:02 13:02 13:02 APTT 21.1 L (22.0-30.0) sec Sodium 136 L (137-145) mmol/L Glucose 116 H (74-99) mg/dL POC Glucose (mg/dL) (75-99) mg/dL Troponin I 0.116 H* (0.000-0.034) ng/mL 11/19/19 Range/Units 13:19 APTT (22.0-30.0) sec Sodium (137-145) mmol/L Glucose (74-99) mg/dL POC Glucose (mg/dL) 114 H (75-99) mg/dL Troponin I (0.000-0.034) ng/mL Thrombosis Risk Factor Assmnt - DVT/VTE Prophylaxis DVT/VTE Prophylaxis: Pharmacologic Prophylaxis ordered, Mechanical Prophylaxis ordered - Choose All That Apply Any of the Below Risk Factors Present?: No Other Risk Factors: Yes Each Risk Factor Represents 2 Points: Age 61-74 years Other congenital or acquired thrombophilia - If yes, enter type in comment: No Thrombosis Risk Factor Assessment Total Risk Factor Score: 2 Thrombosis Risk Factor Assessment Level: Low Risk Assessment and Plan Assessment: 1 Non-ST elevation myocardial infarction: Troponin was elevated admit patient to the hospital continue heparin drip continue patient on nitro will consult cardiology troponin 3 will be done if continue to be elevated patient will require to go for intervention most likely for heart catheter and possible need for angioplasty. 2 chest pain and angina: Patient was admitted to the hospital will consult cardiology will continue CK with troponin times 3 repeat EKG echocardiogram will be order and patient might need to go for heart cath or stress test. 3 history of CVA: Has been on Plavix blood pressure remained well-controlled patient is not on any statin currently. 4 history of breast cancer post mastectomy of the right side with chemo and radiation still seen oncology on regular basis. 5 chronic history of fibromyalgia: Patient has been on Pristiq along with anti- inflammatory agent. 6 severe GERD: Has been on pantoprazole. 7 recurrent herpes: Patient still on prophylaxis. 8 GI prophylaxis: Patient will be on Pepcid 20 mg daily. 9 DVT prophylaxis: Patient will be on heparin drip for now. CODE STATUS: Full code. Admit patient to inpatient status for more than 2 nights.
--- NOTE | 2019-11-20 21:33 | P.PN ---
Subjective Progress Note Date: 11/20/19 Principal diagnosis: Non-ST [place] infarction, recurrent chest pain and angina, nausea vomiting, history of right-sided breast cancer, hypertension and hyperlipidemia. 64-year-old female one of Dr. Olsen patient with past medical history of peptic ulcer disease, CVA, fibromyalgia, GERD and recurrent kidney stone who presented to [facility] department second time in 3 days at [facility] complaining of mild nausea vomiting patient developed to have significant left-sided stabbing chest pain and discomfort was 10 out of 10 radiating to the left upper chest area on left shoulder blade with mild nausea feeing with mild palliation lightheaded cold sweat she end up calling 911 and brought to the ER room via EMS. Patient was seen and evaluated her EKG didn't show any major of rheumatoid change, laboratory values showed mildly elevated troponin. With patient high risk and current change decided to admit patient to observation consult cardiology CK with troponin 3 will be done patient might go for an echocardiogram depend on the value of the troponin the next 24 hours can either go for stress test or heart catheter at all dependent. 11/19: Patient was seen cardiology ended up going for heart catheter result came back with small blockage only Will be on medical management with adjustment of medication no intervention was required. Objective - Vital Signs Vital signs: Vital Signs Temp 98.6 F 11/20/19 16:30 Pulse 62 11/20/19 16:30 Resp 18 11/20/19 16:30 BP 142/68 11/20/19 16:30 Pulse Ox 96 11/20/19 16:30 Intake & Output 11/20/19 11/20/19 11/21/19 06:59 18:59 06:59 Intake Total 660 Output Total 300 220 Balance -300 660 -220 Weight 70.4 kg Intake: IV 200 Oral 460 Output: Urine 300 220 Other: Voiding Method Toilet Toilet # Voids 2 2 1 - Exam Review of Systems CONSTITUTIONAL: Well-developed no acute respiratory distress. EYES: No icterus sclerae, no conjunctivitis. EARS, NOSE, MOUTH, THROAT, and FACE: No sore throat, lymphadenopathy, carotid bruits or deformity. RESPIRATORY: No SOB cough or wheezes. CARDIOVASCULAR: Positive chest pain mild palpitation no cough or wheezes GASTROINTESTINAL: Mild abdominal discomfort with mostly nausea no vomiting positive slight increase heartburn and indigestion. GENITOURINARY: Negative for Hematuria or UTI, no kidney stones. INTEGUMENT/BREAST: Negative for any muscular injury with mild osteoarthritis.. HEMATOLOGIC/LYMPHATIC: Negative for bleed or purpura. MUSCULOSKELTAL: Negative for Myalgia or arthralgia. NEURLOGICAL: No LOC, Sz or syncope, blurred vision dizziness or abnormality.. BEHAVIORAL/PSYCH: Negative. ENDOCRINE: Negative. Physical Exam Vitals: General Appearance: Alert, cooperative, no distress, appears stated age. Neck HEENT: Supple, no lymphadenopathy, no thyroid enlargement, no carotid bruits. Lungs: Clear to auscultation without crackles or wheezes no rhonchi, no deformity. Chest Wall: Chest wall normal expansion with deep inspiration no tenderness and no deformity was found on exam, no costochondral pain or discomfort. Heart: Regular rate and rhythm, S1, S2 normal, no murmur, rub or gallop. Back: Symmetric, no curvature, ROM normal, no CVA tenderness. Abdomen: Soft, non-tender, bowel sounds active all four quadrants, no masses, no organomegaly. Extremities: Extremities normal, atraumatic, no cyanosis or edema. Pulses: 2+ and symmetric. Skin: Skin color, texture, tugor normal, no rashes or lesions. Neurologic: Alert oriented x3 cranial nerves II through XII intact, no motor deficit, no abnormal balance or gait. - Labs CBC & Chem 7: 11/20/19 07:10 11/20/19 07:10 Labs: Abnormal Lab Results - Last 24 Hours (Table) 11/19/19 11/20/19 11/20/19 Range/Units 20:44 01:35 07:10 APTT (22.0-30.0) sec Chloride (98-107) mmol/L Carbon Dioxide (22-30) mmol/L BUN (7-17) mg/dL Glucose (74-99) mg/dL Troponin I 2.230 H* 5.300 H* (0.000-0.034) ng/mL HDL Cholesterol 61 H (40-60) mg/dL 11/20/19 11/20/19 Range/Units 07:10 07:10 APTT 65.7 H (22.0-30.0) sec Chloride 110 H (98-107) mmol/L Carbon Dioxide 20 L (22-30) mmol/L BUN 22 H (7-17) mg/dL Glucose 103 H (74-99) mg/dL Troponin I (0.000-0.034) ng/mL HDL Cholesterol (40-60) mg/dL Assessment and Plan Assessment: 1 Non-ST elevation myocardial infarction: Troponin was elevated and second one was higher than the first one, patient is seen cardiology and went for heart catheter result came back with small blockage only does not require any angioplasty or stent placement at this point. Will be on medical management on ly Will keep patient in the hospital adjust medication until tomorrow and hopefully send her home. 2 chest pain and angina: At least heart catheter came back negative despite troponin be quite bit elevated this time. 3 history of CVA: Has been on Plavix blood pressure remained well-controlled pat ient is not on any statin currently. 4 history of breast cancer post mastectomy of the right side with chemo and radiation still seen oncology on regular basis. 5 chronic history of fibromyalgia: Patient has been on Pristiq along with anti- inflammatory agent. 6 severe GERD: Has been on pantoprazole. 7 recurrent herpes: Patient still on prophylaxis. 8 GI prophylaxis: Patient will be on Pepcid 20 mg daily. 9 DVT prophylaxis: Patient will be on heparin drip for now. Patient ended up going for heart catheter result came back with mild coronary artery disease with no major blockage requiring angioplasty or stent placement. Cardiology up for medical management at this point with titrate medication including Kermit, beta estefanía and statin. Patient continued to have significant nausea will continue Zofran as needed and possible discharge home tomorrow.
[2019-11-20] MEDS: METOPROLOL TARTRATE 12.5 MG TAB PO SCH (22:50)
[2019-11-20] MEDS: amLODIPine 5 MG TAB PO SCH (22:51)
[2019-11-21 05:36] LABS: Basophils % (A) 0 %; Eosinophils % (A) 1 %; HCT 36.2 % (34.0-46.0); HGB 11.7 gm/dL (11.4-16.0); Lymphocytes # (A) 1.3 k/uL (1.0-4.8); Lymphocytes % (A) 24 %; MCH 28.9 pg (25.0-35.0); MCHC 32.3 g/dL (31.0-37.0); MCV 89.5 fL (80.0-100.0); Mean Platelet Volume 7.6; Monocytes # (A) 0.4 k/uL (0-1.0); Monocytes % (A) 7 %; Neutrophils # (A) 3.6 k/uL (1.3-7.7); Neutrophils % (A) 66 %; Platelet Count 157 k/uL (150-450); RBC 4.04 m/uL (3.80-5.40); RDW 12.5 % (11.5-15.5); WBC 5.5 k/uL (3.8-10.6)
[2019-11-21] MEDS: SODIUM CHLORIDE 0.9% 1,000 ML IV SCH ×3 (05:43→19:32)
[2019-11-21 06:19] LABS: African American GFR (CKD) >90 (>60 ml/min/1.73 sqM); Anion Gap 6 mmol/L; Blood Urea Nitrogen 21 mg/dL (7-17); Calcium 8.2 mg/dL (8.4-10.2); Carbon Dioxide 24 mmol/L (22-30); Chloride 106 mmol/L (98-107); Glucose 103 mg/dL (74-99); Non-African American GFR(CKD) >90 (>60 ml/min/1.73 sqM); Potassium 3.4 mmol/L (3.5-5.1); Sodium 136 mmol/L (137-145)
[2019-11-21] MEDS: PANTOPRAZOLE 40 MG TABLET PO SCH (07:06)
[2019-11-21] MEDS: ASPIRIN 81 MG PO SCH (08:00)
[2019-11-21] MEDS: ATORVASTATIN 40 MG TAB PO SCH ×2 (08:43→08:48)
[2019-11-21] MEDS: DESVENLAFAXINE SUCCINATE 50 MG TAB.ER.24H PO SCH (08:43)
[2019-11-21] MEDS: CLOPIDOGREL 75 MG TAB PO SCH (08:47)
[2019-11-21] MEDS: METOPROLOL TARTRATE 12.5 MG TAB PO STA (08:47)
[2019-11-21] MEDS: ACETAMINOPHEN TAB 325 MG TAB PO PRN ×3 (08:52→22:23)
[2019-11-21] MEDS: ONDANSETRON 4 MG TAB PO PRN ×2 (08:53→15:24)
[2019-11-21] MEDS: ACYCLOVIR 200 MG CAP PO SCH (08:55)
[2019-11-21] MEDS: LOSARTAN 50 MG TAB PO SCH (08:56)
[2019-11-21] MEDS: METOPROLOL TARTRATE 12.5 MG TAB PO SCH ×2 (09:00→20:00)
[2019-11-21] MEDS ORDERED: ISOSORBIDE MONONITRATE ER 30 MG TAB.ER.24H PO SCH (09:00)
--- NOTE | 2019-11-21 11:32 | ECHOF ---
Referral Reason:chest pain MEASUREMENTS -------- HEIGHT: 167.6 cm WEIGHT: 69.9 kg BP: 124/71 RVIDd: 3.4 cm (< 3.3) IVSd: 1.4 cm (0.6 - 1.1) LVIDd: 3.6 cm (3.9 - 5.3) LVPWd: 1.3 cm (0.6 - 1.1) IVSs: 1.4 cm LVIDs: 2.3 cm LVPWs: 1.5 cm LAESV Index (A-L): 27.75 ml/m Ao Diam: 2.3 cm (2.0 - 3.7) AV Cusp: 1.8 cm (1.5 - 2.6) MV EXCURSION: 14.577 mm (> 18.000) MV EF SLOPE: 78 mm/s (70 - 150) EPSS: 0.4 cm MV E Link: 0.70 m/s MV DecT: 173 ms MV A Link: 0.38 m/s MV E/A Ratio: 1.84 RAP: 5.00 mmHg RVSP: 40.20 mmHg FINDINGS -------- Resting bradycardia (HR<60bpm). This was a technically adequate study. The left ventricular size is normal. There is mild concentric left ventricular hypertrophy. Overa ll left ventricular systolic function is normal with, an EF between 60 - 65 %. The diastolic fillin g pattern is normal for the age of the patient 13.25. The right ventricle is mildly enlarged. Normal LA size by volume 22+/-6 ml/m2. The right atrium is mildly enlarged. Interatrial and interventricular septum intact. The aortic valve is trileaflet and appears structurally normal. There is no evidence of aortic regu rgitation. There is no evidence of aortic stenosis. Mild mitral regurgitation is present. Mild tricuspid regurgitation present. There is mild pulmonary hypertension. The right ventricular systolic pressure, as measured by Doppler, is 40.20mmHg. There is no pulmonic regurgitation present. The aortic root size is normal. IVC Not well visulized. There is no pericardial effusion. CONCLUSIONS -------- 1. Resting bradycardia (HR<60bpm). 2. This was a technically adequate study. 3. The left ventricular size is normal. 4. There is mild concentric left ventricular hypertrophy. 5. Overall left ventricular systolic function is normal with, an EF between 60 - 65 %. 6. The diastolic filling pattern is normal for the age of the patient 13.25 7. The right ventricle is mildly enlarged. 8. Normal LA size by volume 22+/-6 ml/m2. 9. The right atrium is mildly enlarged. 10. Interatrial and interventricular septum intact. 11. The aortic valve is trileaflet and appears structurally normal. 12. There is no evidence of aortic regurgitation. 13. There is no evidence of aortic stenosis. 14. Mild mitral regurgitation is present. 15. Mild tricuspid regurgitation present. 16. There is mild pulmonary hypertension. 17. The right ventricular systolic pressure, as measured by Doppler, is 40.20mmHg. 18. There is no pulmonic regurgitation present. 19. The aortic root size is normal. 20. IVC Not well visulized. 21. There is no pericardial effusion. COOK RELIEF: Dipti Tran RDCS
[2019-11-21] MEDS ORDERED: POTASSIUM CHLORIDE ER 20 MEQ TAB.ER PO STA (11:46)
--- NOTE | 2019-11-21 11:50 | P.DS ---
Providers Date of admission: 11/19/19 15:15 Expected date of discharge: 11/21/19 Attending physician: Guzman Carrillo Consults: 11/19/19 15:15 Consult Physician Urgent Consulting Provider: Jong Pro Consult Reason/Comments: Chest pain, elevated troponin Do you want consulting provider notified?: Yes Primary care physician: Vahe Walsh MD Hospital Course: 64-year-old female one of Dr. Olsen patient with past medical history of peptic ulcer disease, CVA, fibromyalgia, GERD and recurrent kidney stone who presented to [facility] department second time in 3 days at [facility] complaining of mild nausea vomiting patient developed to have significant left-sided stabbing chest pain and discomfort was 10 out of 10 radiating to the left upper chest area on left shoulder blade with mild nausea feeing with mild palliation lightheaded cold sweat she end up calling 911 and brought to the ER room via EMS. Patient was seen and evaluated her EKG didn't show any major of rheumatoid change, laboratory values showed mildly elevated troponin. With patient high risk and current change decided to admit patient to observation consult cardiology CK with troponin 3 will be done patient might go for an echocardiogram depend on the value of the troponin the next 24 hours can either go for stress test or heart catheter at all dependent. 11/19: Patient was seen cardiology ended up going for heart catheter result came back with small blockage only Will be on medical management with adjustment of medication no intervention was required. 11/20: Patient is seen today in follow-up. Patient has been afebrile, heart rate 70, blood pressure 124/71, pulse ox 97% on room air. Repeat CBC is normal. Sodium 136, potassium 3.4 will be replaced, chloride 106, CO2 24, BUN 21 cre atinine 0.62 She denies having any chest pain at this time. No shortness of breath. No lightheadedness or dizziness. We are also going to add Imdur to her new medication regime. Patient will be discharged home later today in stable condition. Discharge diagnoses: 1 Non-ST elevation myocardial infarction 2 chest pain and angina 3 history of CVA 4 history of breast cancer post mastectomy of the right side with chemo and radiation 5 chronic history of fibromyalgia 6 severe GERD 7 recurrent herpes Discharge plan: Home Impression and plan of care have been directed as dictated by the signing physician. Kimberly Johns nurse practitioner acting as scribe for signing physician. Patient Condition at Discharge: Good Plan - Discharge Summary Discharge Rx Participant: Yes New Discharge Prescriptions: New Aspirin 81 mg PO DAILY chew Losartan [Cozaar] 50 mg PO DAILY #30 tab Isosorbide Mononitrate ER [Imdur] 30 mg PO DAILY #30 tab Atorvastatin [Lipitor] 40 mg PO HS #30 tab Metoprolol Tartrate [Lopressor] 12.5 mg PO BID #60 tab Nitroglycerin Sl Tabs [Nitrostat] 0.4 mg SUBLINGUAL Q5M PRN #25 tab PRN Reason: Chest Pain amLODIPine [Norvasc] 5 mg PO HS #30 tab Continue Desvenlafaxine Succinate [Pristiq ER] 100 mg PO QAM Omeprazole 40 mg PO DAILY #60 capsule. Clopidogrel Bisulfate [Plavix] 75 mg PO DAILY Amoxic-Pot Clav 875-125Mg [Augmentin 875-125] 1 tab PO BID Acyclovir [Zovirax] 400 mg PO DAILY Discharge Medication List Desvenlafaxine Succinate [Pristiq ER] 100 mg PO QAM 12/14/13 [History] Omeprazole 40 mg PO DAILY #60 capsule. 02/17/19 [Rx] Clopidogrel Bisulfate [Plavix] 75 mg PO DAILY 09/09/19 [History] Acyclovir [Zovirax] 400 mg PO DAILY 11/19/19 [History] Amoxic-Pot Clav 875-125Mg [Augmentin 875-125] 1 tab PO BID 11/19/19 [History] Aspirin 81 mg PO DAILY chew 11/21/19 [Rx] Atorvastatin [Lipitor] 40 mg PO HS #30 tab 11/21/19 [Rx] Isosorbide Mononitrate ER [Imdur] 30 mg PO DAILY #30 tab 11/21/19 [Rx] Losartan [Cozaar] 50 mg PO DAILY #30 tab 11/21/19 [Rx] Metoprolol Tartrate [Lopressor] 12.5 mg PO BID #60 tab 11/21/19 [Rx] Nitroglycerin Sl Tabs [Nitrostat] 0.4 mg SUBLINGUAL Q5M PRN #25 tab 11/21/19 [Rx] amLODIPine [Norvasc] 5 mg PO HS #30 tab 11/21/19 [Rx] Follow up Appointment(s)/Referral(s): Vahe Walsh MD [Primary Care Provider] - 1 Week Jong Pro MD [STAFF PHYSICIAN] - 1 Week
--- NOTE | 2019-11-21 12:10 | P.PN ---
Subjective Progress Note Date: 11/21/19 This is a 64-year-old female who presented to the hospital with a non- ST elevation myocardial infarction. She was taken to the cardiac catheterization lab yesterday by Dr. Randi Pro and was not found to have any significantly obstructive coronary artery disease. Patient was seen and examined this morning he denied any chest discomfort and her breathing overall is stable. Blood pressure 130/60 with a heart rate in the 70s this morning. We will order an Echocardiogram with Doppler study. Objective - Vital Signs Vital signs: Vital Signs Temp 98.2 F 11/21/19 08:39 Pulse 70 11/21/19 08:39 Resp 16 11/21/19 08:39 BP 131/67 11/21/19 10:04 Pulse Ox 97 11/21/19 08:39 Intake & Output 11/20/19 11/21/19 11/21/19 18:59 06:59 18:59 Intake Total 660 120 Output Total 220 300 Balance 660 -220 -180 Weight 69.9 kg Intake: IV 200 Oral 460 120 Output: Urine 220 300 Other: Voiding Method Toilet Toilet Toilet # Voids 2 1 # Bowel Movements 0 - Exam PHYSICAL EXAMINATION: GENERAL: 64-year-old female in no acute distress at the time of my examination HEENT: Head is atraumatic, normocephalic. Pupils equal, round. Sclera anicteric. Conjunctiva are clear. Mucous membranes of the mouth are moist. Neck is supple. There is no elevated jugular venous pressure.] No carotid bruit is heard. HEART EXAMINATION: Heart S1, S2 normal. No murmur or gallop heard. CHEST EXAMINATION: Lungs are clear to auscultation and precussion. No chest wall tenderness is noted on palpation or with deep breathing. ABDOMEN: Soft, nontender. Bowel sounds are heard. No organomegaly noted. EXTREMITIES: 2+ peripheral pulses with no evidence of peripheral edema and no calf tenderness noted. Right radial site clean and dry, good distal pulse. NEUROLOGIC patient is awake, alert and oriented 3 . - Labs CBC & Chem 7: 11/21/19 04:51 11/21/19 04:51 Labs: Abnormal Lab Results - Last 24 Hours (Table) 11/21/19 Range/Units 04:51 Sodium 136 L (137-145) mmol/L Potassium 3.4 L (3.5-5.1) mmol/L BUN 21 H (7-17) mg/dL Glucose 103 H (74-99) mg/dL Calcium 8.2 L (8.4-10.2) mg/dL Assessment and Plan Plan: Assessment and plan #1 non-ST elevation myocardial infarction, troponin up to 5, cardiac catheterization did not reveal any significantly obstructive coronary artery disease #2 fibromyalgia #3 GERD #4 history of breast cancer Plan We will review the patient's echocardiogram with Doppler study. Continue to monitor the patient for 24 hours and plan for discharge home in the morning if stable. DNP note has been reviewed, I agree with a documented findings and plan of care. Patient was seen and examined.
--- NOTE | 2019-11-21 13:09 | P.PN ---
Subjective Progress Note Date: 11/21/19 64-year-old female one of Dr. Olsen patient with past medical history of peptic ulcer disease, CVA, fibromyalgia, GERD and recurrent kidney stone who presented to demurs department second time in 3 days at [facility] complaining of mild nausea vomiting patient developed to have significant left-sided stabbing chest pain and discomfort was 10 out of 10 radiating to the left upper chest area on left shoulder blade with mild nausea feeing with mild palliation lightheaded cold sweat she end up calling 911 and brought to the ER room via EMS. Patient was seen and evaluated her EKG didn't show any major of rheumatoid change, laboratory values showed mildly elevated troponin. With patient high r isk and current change decided to admit patient to observation consult cardiology CK with troponin 3 will be done patient might go for an echocardiogram depend on the value of the troponin the next 24 hours can either go for stress test or heart catheter at all dependent. 11/19: Patient was seen cardiology ended up going for heart catheter result came back with small blockage only Will be on medical management with adjustment of medication no intervention was required. 11/20: Patient is seen today in follow-up. Patient has been afebrile, heart rate 70, blood pressure 124/71, pulse ox 97% on room air. Repeat CBC is normal. Sodium 136, potassium 3.4 will be replaced, chloride 106, CO2 24, BUN 21 creatinine 0.62 She denies having any chest pain at this time. No shortness of breath. No lightheadedness or dizziness. We are also going to add Imdur to her new medication regime. Cardiology has ordered an echocardiogram and plan for monitoring overnight. Objective - Vital Signs Vital signs: Vital Signs Temp 98.2 F 11/21/19 08:39 Pulse 60 11/21/19 12:00 Resp 18 11/21/19 12:00 BP 116/68 11/21/19 12:00 Pulse Ox 98 11/21/19 12:00 Intake & Output 11/20/19 11/21/19 11/21/19 18:59 06:59 18:59 Intake Total 660 120 Output Total 220 300 Balance 660 -220 -180 Weight 69.9 kg Intake: IV 200 Oral 460 120 Output: Urine 220 300 Other: Voiding Method Toilet Toilet Toilet # Voids 2 1 # Bowel Movements 0 - Exam Review of systems CONSTITUTIONAL: Well-developed no acute respiratory distress. Denies fever, denies chills EYES: No icterus sclerae, no conjunctivitis. EARS, NOSE, MOUTH, THROAT, and FACE: No sore throat, lymphadenopathy, carotid bruits or deformity. RESPIRATORY: No SOB cough or wheezes. CARDIOVASCULAR: Denies chest pain denies palpitation no cough or wheezes GASTROINTESTINAL: Mild abdominal discomfort denies nausea no vomiting positive slight increase heartburn and indigestion. GENITOURINARY: Negative for Hematuria or UTI, no kidney stones. INTEGUMENT/BREAST: Negative for any muscular injury with mild osteoarthritis.. HEMATOLOGIC/LYMPHATIC: Negative for bleed or purpura. MUSCULOSKELTAL: Negative for Myalgia or arthralgia. NEURLOGICAL: No LOC, Sz or syncope, blurred vision dizziness or abnormality.. BEHAVIORAL/PSYCH: Negative. ENDOCRINE: Negative. Physical exam General Appearance: Alert, cooperative, no distress, appears stated age. Neck HEENT: Supple, no lymphadenopathy, no thyroid enlargement, no carotid bruits. Lungs: Clear to auscultation without crackles or wheezes no rhonchi, no deformity. Chest Wall: Chest wall normal expansion with deep inspiration no tenderness and no deformity was found on exam, no costochondral pain. Heart: Regular rate and rhythm, S1, S2 normal, no murmur, rub or gallop. Back: Symmetric, no curvature, ROM normal, no CVA tenderness. Abdomen: Soft, non-tender, bowel sounds active all four quadrants, no masses, no organomegaly. Extremities: Extremities normal, atraumatic, no cyanosis or edema. Pulses: 2+ and symmetric. Skin: Skin color, texture, tugor normal, no rashes or lesions. Neurologic: Alert oriented x3 cranial nerves II through XII intact, no motor deficit, no abnormal balance or gait. - Labs CBC & Chem 7: 11/21/19 04:51 11/21/19 04:51 Labs: Abnormal Lab Results - Last 24 Hours (Table) 11/21/19 Range/Units 04:51 Sodium 136 L (137-145) mmol/L Potassium 3.4 L (3.5-5.1) mmol/L BUN 21 H (7-17) mg/dL Glucose 103 H (74-99) mg/dL Calcium 8.2 L (8.4-10.2) mg/dL Assessment and Plan Plan: 1 Non-ST elevation myocardial infarction, status post heart catheter result came back with small blockage only does not require any angioplasty or stent place ment at this point. Will be on medical management only Will keep patient in the hospital adjust medication until tomorrow and hopefully send her home. 2 chest pain and angina: At least heart catheter came back negative despite troponin be quite bit elevated this time. 3 history of CVA: Has been on Plavix blood pressure remained well-controlled patient is not on any statin currently. 4 history of breast cancer post mastectomy of the right side with chemo and radiation still seen oncology on regular basis. 5 chronic history of fibromyalgia: Patient has been on Pristiq along with anti-inflammatory agent. 6 severe GERD: Has been on pantoprazole. 7 recurrent herpes: Patient still on prophylaxis. 8 GI prophylaxis: Patient will be on Pepcid 20 mg daily. 9 DVT prophylaxis: Patient will be on heparin drip for now. Impression and plan of care have been directed as dictated by the signing physician. Kimberly Johns nurse practitioner acting as scribe for signing physician.
[2019-11-21] MEDS: AMOXIC-POT CLAV 875-125MG 1 EACH TAB PO SCH ×2 (13:25→19:58)
[2019-11-21] MEDS: ACYCLOVIR 400 MG/10 ML CUP PO SCH (19:33)
[2019-11-21] MEDS: amLODIPine 5 MG TAB PO SCH (20:00)
[2019-11-21 20:02] VITALS: RESP 18
[2019-11-21] MEDS ORDERED: PREGABALIN 75 MG CAP PO SCH (21:00)
[2019-11-22] MEDS: ACETAMINOPHEN TAB 325 MG TAB PO PRN (04:57)
[2019-11-22] MEDS: PANTOPRAZOLE 40 MG TABLET PO SCH (04:57)
[2019-11-22 07:18] LABS: Basophils % (A) 0 %; Eosinophils % (A) 0 %; HCT 35.3 % (34.0-46.0); HGB 11.7 gm/dL (11.4-16.0); Lymphocytes # (A) 1.4 k/uL (1.0-4.8); Lymphocytes % (A) 31 %; MCH 30.3 pg (25.0-35.0); MCHC 33.1 g/dL (31.0-37.0); MCV 91.4 fL (80.0-100.0); Mean Platelet Volume 7.5; Monocytes # (A) 0.3 k/uL (0-1.0); Monocytes % (A) 7 %; Neutrophils # (A) 2.6 k/uL (1.3-7.7); Neutrophils % (A) 58 %; Platelet Count 145 k/uL (150-450); RBC 3.87 m/uL (3.80-5.40); RDW 12.8 % (11.5-15.5); WBC 4.6 k/uL (3.8-10.6)
[2019-11-22 09:32] VITALS: BP 128/80; PULSE 62; TEMP 98.5
[2019-11-22] MEDS: LOSARTAN 50 MG TAB PO SCH (09:34)
[2019-11-22] MEDS: ASPIRIN 81 MG PO SCH (09:34)
[2019-11-22] MEDS: METOPROLOL TARTRATE 12.5 MG TAB PO SCH (09:34)
[2019-11-22] MEDS: ACYCLOVIR 200 MG CAP PO SCH (09:34)
[2019-11-22] MEDS: DESVENLAFAXINE SUCCINATE 50 MG TAB.ER.24H PO SCH (09:34)
[2019-11-22] MEDS: ATORVASTATIN 40 MG TAB PO SCH (09:34)
[2019-11-22] MEDS: CLOPIDOGREL 75 MG TAB PO SCH (09:35)
--- NOTE | 2019-11-22 11:56 | P.PN ---
Subjective Progress Note Date: 11/22/19 This is a 64-year-old female who presented to the hospital with a non- ST elevation myocardial infarction. She was taken to the cardiac catheterization lab yesterday by Dr. Randi Pro and was not found to have any significantly obstructive coronary artery disease. Patient was seen and examined this morning he denied any chest discomfort and her breathing overall is stable. Blood pressure 130/60 with a heart rate in the 70s this morning. We will order an Echocardiogram with Doppler study. 11/22/2019 Patient seen and examined this morning, denied any chest discomfort and breathing is stable. Hemodynamically stable. Objective - Vital Signs Vital signs: Vital Signs Temp 98.5 F 11/22/19 08:00 Pulse 62 11/22/19 08:00 Resp 18 11/22/19 08:00 BP 128/80 11/22/19 08:00 Pulse Ox 100 11/22/19 08:00 Intake & Output 11/21/19 11/22/19 11/22/19 18:59 06:59 18:59 Intake Total 600 120 Output Total 300 Balance 300 120 Weight 72.5 kg Intake: Oral 600 120 Output: Urine 300 Other: Voiding Method Toilet Toilet Toilet # Voids 1 1 1 # Bowel Movements 0 - Exam PHYSICAL EXAMINATION: GENERAL: 64-year-old female in no acute distress at the time of my examination HEENT: Head is atraumatic, normocephalic. Pupils equal, round. Sclera anicteric. Conjunctiva are clear. Mucous membranes of the mouth are moist. Neck is supple. There is no elevated jugular venous pressure.] No carotid bruit is heard. HEART EXAMINATION: Heart S1, S2 normal. No murmur or gallop heard. CHEST EXAMINATION: Lungs are clear to auscultation and precussion. No chest wall tenderness is noted on palpation or with deep breathing. ABDOMEN: Soft, nontender. Bowel sounds are heard. No organomegaly noted. EXTREMITIES: 2+ peripheral pulses with no evidence of peripheral edema and no calf tenderness noted. Right radial site clean and dry, good distal pulse. NEUROLOGIC patient is awake, alert and oriented 3 . - Labs CBC & Chem 7: 11/22/19 06:52 11/21/19 04:51 Labs: Abnormal Lab Results - Last 24 Hours (Table) 11/22/19 Range/Units 06:52 Plt Count 145 L (150-450) k/uL Assessment and Plan Plan: Assessment and plan #1 non-ST elevation myocardial infarction, troponin up to 5, cardiac catheterization did not reveal any significantly obstructive coronary artery disease #2 fibromyalgia #3 GERD #4 history of breast cancer Plan Echocardiogram with Doppler study revealed a normal left ventricular systolic function. From cardiology's perspective, patient may be able to be discharged home today. We will make her a follow-up appointment to see Dr. FLETCHER Pro in the office post discharge. DNP note has been reviewed, I agree with a documented findings and plan of care. Patient was seen and examined.
[2019-11-22] MEDS ORDERED: ISOSORBIDE MONONITRATE ER 15 MG TAB PO SCH (21:00)
== END 2019-11-22 13:44 | disposition home or self-care (01) | DRG 282 ==
LOC: EC 13:05 → 3SCARD 15:15
PROVIDERS: ADMIT Internal Medicine Geriatric Medicine; ATTEND Internal Medicine Geriatric Medicine
PROC: B2111ZZ Fluoroscopy of Multiple Coronary Arteries using Low Osmolar Contrast (ICD-10-PCS; principal; 2019-11-20 10:33)
DX: I21.4 Non-ST elevation (NSTEMI) myocardial infarction (principal); K21.9 Gastro-esophageal reflux disease without esophagitis; M19.90 Unspecified osteoarthritis, unspecified site; F32.9 Major depressive disorder, single episode, unspecified; E78.5 Hyperlipidemia, unspecified; I10 Essential (primary) hypertension; I25.119 Atherosclerotic heart disease of native coronary artery with unspecified angina pectoris; M79.7 Fibromyalgia; B00.9 Herpesviral infection, unspecified; I08.1 Rheumatic disorders of both mitral and tricuspid valves; Z87.01 Personal history of pneumonia (recurrent); Z79.02 Long term (current) use of antithrombotics/antiplatelets; Z88.5 Allergy status to narcotic agent; Z88.2 Allergy status to sulfonamides; Z88.8 Allergy status to other drugs, medicaments and biological substances; Z86.73 Personal history of transient ischemic attack (TIA), and cerebral infarction without residual deficits; Z90.11 Acquired absence of right breast and nipple; Z87.11 Personal history of peptic ulcer disease; Z87.442 Personal history of urinary calculi; Z85.528 Personal history of other malignant neoplasm of kidney; Z85.3 Personal history of malignant neoplasm of breast; Z90.710 Acquired absence of both cervix and uterus; Z90.89 Acquired absence of other organs; Z90.49 Acquired absence of other specified parts of digestive tract; Z98.890 Other specified postprocedural states; Z98.42 Cataract extraction status, left eye; Z98.41 Cataract extraction status, right eye; Z82.49 Family history of ischemic heart disease and other diseases of the circulatory system; Z80.3 Family history of malignant neoplasm of breast
CPT/HCPCS: 36415; 71046; 80048; 80053; 80061; 82550; 83690; 83735; 83880; 84484; 85025; 85379; 85610; 85730; 93005; 93306; 93458; 96365; 96375; 96376; 99291

== ENCOUNTER → 2020-02-21 | Outpatient (CLI) | payer OTHER ==
[2020-02-21 15:15] LABS: Basophils % (A) 0 %; Eosinophils % (A) 0 %; HCT 39.4 % (34.0-46.0); HGB 12.9 gm/dL (11.4-16.0); Lymphocytes # (A) 1.1 k/uL (1.0-4.8); Lymphocytes % (A) 22 %; MCH 30.5 pg (25.0-35.0); MCHC 32.8 g/dL (31.0-37.0); Mean Platelet Volume 7.3; Monocytes # (A) 0.2 k/uL (0-1.0); Monocytes % (A) 5 %; Neutrophils # (A) 3.6 k/uL (1.3-7.7); Neutrophils % (A) 72 %; Platelet Count 185 k/uL (150-450); RBC 4.24 m/uL (3.80-5.40); RDW 13.2 % (11.5-15.5); WBC 5.1 k/uL (3.8-10.6)
[2020-02-21 19:20] LABS: African American GFR (CKD) 90.3 (60.0-200.0); Albumin 4.5 g/dL (3.80-4.90); Albumin/Globulin Ratio 2.05 (1.60-3.17); Anion Gap 8.6 mmol/L (4.00-12.00); BUN/Creat Ratio 26.25 Ratio (12.00-20.00); Calcium 9.4 mg/dL (8.7-10.3); Carbon Dioxide 27.4 mmol/L (21.6-31.8); Chol/HDL Ratio 2.35; Globulin 2.2 g/dL (1.6-3.3); Magnesium 1.7 mg/dL (1.5-2.4); Non-African American GFR(CKD) 77.9 (60.0-200.0); Potassium 3.9 mmol/L (3.5-5.5); Total Bilirubin 0.8 mg/dL (0.3-1.2); Total Protein 6.7 g/dL (6.2-8.2)
[2020-02-21 22:22] LABS: Anti-Smith Ab Interp NEGATIVE (NEGATIVE); Chromatin Antibody 0.2 AI; Cyclic Citrull Pep IgG Unit <0.5 U/mL; Cyclic Citrullinated Pep IgG NEGATIVE (NEGATIVE); DNA Double-Stranded NEGATIVE (NEGATIVE); JO-1 IgG Antibody <0.2 AI; Scleroderma SC-70 Ab <0.2 AI
[2020-02-22 00:33] LABS: Erythrocyte Sedimentation Rate 2 mm/Hr (0-30)
[2020-02-22 11:55] LABS: ANA Pattern Homogeneous
== END | disposition home or self-care (01) ==
LOC: LABWHC1 13:23
PROVIDERS: ATTEND Internal Medicine
DX: I25.119 Atherosclerotic heart disease of native coronary artery with unspecified angina pectoris (principal); D51.9 Vitamin B12 deficiency anemia, unspecified; E55.9 Vitamin D deficiency, unspecified; R53.82 Chronic fatigue, unspecified
CPT/HCPCS: 36415; 80053; 80061; 82306; 82607; 82746; 83516; 83735; 84443; 85025; 85652; 86038; 86039; 86200; 86225; 86235; 86431

== ENCOUNTER → 2020-04-30 | Outpatient (CLI) | payer OTHER ==
--- NOTE | 2020-04-30 08:51 | CT ---
EXAMINATION TYPE: CT brain wo con DATE OF EXAM: 04/30/2020 COMPARISON: 04/14/2014 HISTORY: Light headedness CT DLP: 1036 mGycm Automated exposure control for dose reduction was used. FINDINGS: Mild to moderate generalized degenerative change with a slightly greater frontal lobe component. Calc ification near the frontal horn of the left ventricle stable. No midline shift. No mass effect. No ac yurok hemorrhage. Calvarium intact. Craniocervical junction maintained. Sella turcica has a normal appearance. IMPRESSION: DEGENERATIVE CHANGE WITH NO EVIDENCE OF ACUTE HEMORRHAGE OR MASS EFFECT. IF SYMPTOMS PERSIST CONSIDER MRI.
--- NOTE | 2020-04-30 15:58 | US ---
EXAMINATION TYPE: US carotid duplex BILAT DATE OF EXAM: 04/30/2020 COMPARISON: CT brain today CLINICAL HISTORY: R42 [place]. Prior TIA per patient. EXAM MEASUREMENTS: RIGHT: Peak Systolic Velocity (PSV) cm/sec ----- Right CCA: 48.8 ----- Right ICA: 92.1 ----- Right ECA: 51.3 ICA/CCA ratio: 1.9 RIGHT: End Diastole cm/sec ----- Right CCA: 15.9 ----- Right ICA: 38.1 ----- Right ECA: 9.5 LEFT: Peak Systolic Velocity (PSV) cm/sec ----- Left CCA: 57.9 ----- Left ICA: 83.0 ----- Left ECA: 53.5 ICA/CCA ratio: 1.4 LEFT: End Diastole cm/sec ----- Left CCA: 19.4 ----- Left ICA: 31.6 ----- Left ECA: 8.4 VERTEBRALS (direction of flow): Right Vertebral: Antegrade Left Vertebral: Antegrade Incidental Left thyroid finding: couple of hypoechoic nodules are seen within left thyroid with large r nodule = 0.5 x 0.6 x 0.4cm. Rhythm: Arrhythmia, couple of episodes observed on PW Doppler. IMPRESSION: 1. No significant flow-limiting stenosis based on velocity. No significant plaquing is evident. 2. Incidental note subcentimeter thyroid nodules left lobe thyroid Criteria for Assigning % of Stenosis / Diameter reduction (Estimation based on the indirect measurements of the internal carotid artery velocities (ICA PSV). 1. Normal (no stenosis)=ICA PSV < 125 cm/s: ratio < 2.0: ICA EDV<40 cm/s. 2. Less than 50% stenosis=ICA PSV < 125 cm/s: ratio < 2.0: ICA EDV<40 cm/s. 3. 50 to 69% stenosis=ICA PSV of 125 to 230 cm/s: ration 2.0 ? 4.0: ICA EDV 40-100 cm/s. 4. Greater than 70% stenosis to near occlusion= ICA PSV > 230 cm/s: ratio > 4.0: ICA EDV > 100 cm/s. 5. Near occlusion= ICA PSV velocities may be low or undetectable: variable ratio and ICA EDV. 6. Total occlusion=unable to detect flow.
== END | disposition home or self-care (01) ==
LOC: RADCTMAIN 07:35
PROVIDERS: ATTEND Internal Medicine
DX: G31.9 Degenerative disease of nervous system, unspecified (principal); R42 Dizziness and giddiness
CPT/HCPCS: 70450; 93880

== ENCOUNTER → 2020-05-08 | Outpatient (CLI) | payer OTHER ==
--- NOTE | 2020-05-09 06:58 | US ---
EXAMINATION TYPE: US thyroid st tissue head/neck DATE OF EXAM: 05/08/2020 COMPARISON: 04/25/2010 CLINICAL HISTORY: E04.1 THYROID NODULE. thyroid nodule visualized on recent carotid ultrasound GLAND SIZE: Right Lobe: 4.8 x 1.8 x 1.8 cm Overall Parenchyma: heterogenous Left Lobe: 4.7 x 1.8 x 1.6 cm Overall Parenchyma: heterogeneous Isthmus Thickness: 0.2 cm NODULES RIGHT: # of nodules measured on right: 0 LEFT: # of nodules measured on left: subcentimeter nodules noted with largest = 0.5cm ISTHMUS: # of nodules measured in the isthmus: 0 Bilateral neck scanned, no evidence of lymphadenopathy. IMPRESSION: Subcentimeter nodularity Glandular heterogeneity nonspecific.
== END | disposition home or self-care (01) ==
LOC: RADUSWWP 15:46
PROVIDERS: ATTEND Internal Medicine
DX: E04.1 Nontoxic single thyroid nodule (principal)
CPT/HCPCS: 76536

== ENCOUNTER → 2020-07-18 | Outpatient (CLI) | payer OTHER ==
[2020-07-18 12:43] LABS: African American GFR (CKD) >90 (>60 ml/min/1.73 sqM); Anion Gap 6 mmol/L; Blood Urea Nitrogen 17 mg/dL (7-17); Carbon Dioxide 30 mmol/L (22-30); Chloride 105 mmol/L (98-107); Non-African American GFR(CKD) 88 (>60 ml/min/1.73 sqM); Potassium 3.3 mmol/L (3.5-5.1); Sodium 141 mmol/L (137-145)
[2020-07-18 12:49] LABS: Basophils % (A) 0 %; Eosinophils % (A) 1 %; HCT 39.7 % (34.0-46.0); HGB 13.1 gm/dL (11.4-16.0); Lymphocytes # (A) 1.3 k/uL (1.0-4.8); Lymphocytes % (A) 21 %; MCH 30.2 pg (25.0-35.0); MCHC 33.1 g/dL (31.0-37.0); MCV 91.4 fL (80.0-100.0); Mean Platelet Volume 6.9; Monocytes # (A) 0.3 k/uL (0-1.0); Monocytes % (A) 5 %; Neutrophils # (A) 4.3 k/uL (1.3-7.7); Neutrophils % (A) 71 %; Platelet Count 215 k/uL (150-450); RBC 4.35 m/uL (3.80-5.40); RDW 12.4 % (11.5-15.5)
== END | disposition home or self-care (01) ==
LOC: LABPAT 11:24
PROVIDERS: ATTEND Internal Medicine Clinical Cardiac Electrophysiology
DX: Z01.818 Encounter for other preprocedural examination (principal); I47.2 Ventricular tachycardia
CPT/HCPCS: 80051; 82565; 84520; 85025

== ENCOUNTER 2020-07-31 10:53 | Day surgery (SDC) | payer OTHER ==
[2020-07-31] MEDS: SODIUM CHLORIDE 0.9% 1,000 ML IV SCH (11:40)
[2020-07-31] MEDS ORDERED: MIDAZOLAM 2 MG/2 ML VIAL ONE (16:35)
[2020-07-31] MEDS ORDERED: ISOPROTERENOL 250 MCG/1.25 ML SYR IV ONE (16:35)
[2020-07-31] MEDS ORDERED: fentaNYL (PF) 50 MCG/ML 2 ML AMP ONE (16:35)
[2020-07-31] MEDS ORDERED: PROPOFOL 10 MG/ML 20 ML VIAL IV ONE (16:35)
--- NOTE | 2020-07-31 16:47 | P.EPPROC ---
- EP Procedure Note Electrophysiology Procedure Note: Diagnosis Palpitations and presyncope Twelve-lead EKG shows sinus rhythm normal WA narrow QRS normal ST segments Absolute QT interval of 440 ms No delta waves Tilt table test Baseline blood pressure 166/83 mmHg, Baseline heart rate 59 beats a minute Patient was tilted upright at an angle of 70 per protocol. No significant change in heart rate blood pressure. Blood pressure remained elevated between 140 260 mmHg systolic Heart rates remained in the 60s and 70s Patient complained of nausea and at that time her heart rate was 68 beats a minute blood pressure 149/81 mmHg No syncope noted Impression Normal twelve-lead EKG Normal heart rate and blood pressure response to upright tilting
[2020-07-31] MEDS ORDERED: LIDOCAINE 1% INJ 10MG/ML (20 ML MDV) ONE (16:48)
[2020-07-31] MEDS ORDERED: diphenhydrAMINE 25 MG CAP PO PRN (18:37)
[2020-07-31] MEDS ORDERED: ACETAMINOPHEN TAB 325 MG TAB PO PRN (18:38)
[2020-07-31] MEDS ORDERED: HYDROcodone/APAP 5-325MG 1 EACH TAB PO PRN (18:38)
[2020-07-31] MEDS ORDERED: ACETAMINOPHEN IV (For NPO) 1,000 MG in EMPTY BAG 1 BAG IVPB ONE (19:00)
--- NOTE | 2020-07-31 19:41 | CE ---
CARDIAC ELECTROPHYSIOLOGY REPORT Deepthi Deal is a 64-year-old female patient of Dr. Vahe Walsh and Dr. Nichols who has recurrent dizzy spells, and an event monitor showed nonsustained atrial tachycardia and nonsustained ventricular tachycardia. She has known coronary artery disease with diminutive occluded left circumflex/OM branch, and medical treatment has been advised. LV function is normal. She was brought in for a diagnostic EP study. Patient was brought to the EP lab in a fasting state. Written informed consent was obtained prior to the procedure. Right groin was prepped and draped as per protocol. Venous sheaths were placed in the right femoral vein. Via these, diagnostic catheters were placed in the high right atrium, His bundle, right ventricular outflow tract, apex and coronary sinus. Sinus cycle length 1011 milliseconds, NC interval 159 milliseconds, QRS 99 milliseconds, QT 414 milliseconds. AH interval 84 milliseconds, HV interval 31 milliseconds. Sinus node recovery times at 600, 500 and 400 milliseconds were 1363, 1376 and 1003 milliseconds, respectively. Corresponding corrected sinus node recovery times within normal limits. AV node Wenckebach block 340 milliseconds. No evidence of slow pathway conduction. No evidence for antegrade accessory pathway conduction. VA Wenckebach block 510 milliseconds. Atrial extrastimulation was performed from the high right atrium and atrial ERPs were 600/less than 200/less than 200 milliseconds. AV node ERPs 600/250 milliseconds. Burst stimulation was performed from the high right atrium and atrial tachycardia with variability and cycle length and slight variability and electrograms were noted. This lasted for a few minutes and terminated spontaneously. Following that, ventricular stimulation protocol was followed. Burst stimulation from 400 milliseconds down to 200 milliseconds was performed. With aggressive stimulation, nonsustained PMVT was obtained was induced for 3 to 5 beats at a pacing cycle length ranging from 230 to 210 milliseconds. Ventricular extrastimulation was performed at 2 drivetrains up to triple extrastimuli. With triple extrastimuli, nonsustained VT was induced. No sustained VT was induced. Catheter was then placed in the coronary sinus and burst stimulation was performed from the coronary sinus. Ventricular extrastimulation was performed from the RVOT. Burst stimulation was performed from the RVOT. Up to triple extrastimuli were used at 2 different drivetrains. No VT was induced. Thereafter, high-dose Isuprel was employed. No spontaneous arrhythmias were noted. Burst stimulation was performed from the RVOT. Ventricular extrastimulation up to triple extrastimuli from the RVOT. Coronary sinus extrastimulation was performed. No arrhythmias were induced on Isuprel. All catheters were then removed and patient was transferred back to telemetry. RESULT: Diagnostic EP study revealin. Nonsustained irregular atrial tachycardia when burst stimulation was performed from the high right atrium. 2. Brief nonsustained ventricular tachycardia with aggressive burst stimulation in the right ventricle. No sustained arrhythmias on or off Isuprel. MMODL / IJN: [id number] /
[2020-07-31] MEDS ORDERED: CLOPIDOGREL 75 MG TAB PO SCH (21:00)
[2020-07-31] MEDS ORDERED: LOSARTAN 50 MG TAB PO SCH (21:00)
[2020-07-31] MEDS ORDERED: METOPROLOL TARTRATE 25 MG TAB PO SCH (21:00)
[2020-07-31] MEDS ORDERED: QUEtiapine 25 MG TAB PO SCH (21:00)
[2020-07-31] MEDS ORDERED: ATORVASTATIN 40 MG TAB PO SCH (21:00)
[2020-07-31] MEDS ORDERED: CYCLOBENZAPRINE 10 MG TAB PO SCH (21:00)
[2020-07-31] MEDS ORDERED: PREGABALIN 75 MG CAP PO SCH (21:00)
[2020-08-01] MEDS: SODIUM CHLORIDE 0.9% 1,000 ML IV SCH (02:40)
[2020-08-01 03:44] VITALS: RESP 16
[2020-08-01 08:16] VITALS: BP 97/74; PULSE 56; TEMP 98
[2020-08-01] MEDS ORDERED: ACYCLOVIR 200 MG CAP PO SCH (09:00)
[2020-08-01] MEDS ORDERED: DESVENLAFAXINE SUCCINATE 50 MG TAB.ER.24H PO SCH (09:00)
[2020-08-01] MEDS ORDERED: ASPIRIN 81 MG PO SCH (09:00)
--- NOTE | 2020-08-01 12:36 | P.DS ---
Providers Expected date of discharge: 08/01/20 Attending physician: Jaleel Bertrand Primary care physician: Vahe Walsh MD Hospital Course: 64-year-old female who is a patient of Dr. Nichols who has had recurrent dizzy spells and an event monitor showing nonsustained atrial tachycardia and nonsustained ventricular tachycardia. She also has a history of coronary artery disease with diminutive occluded left circumflex/OM branch and medical treatment was advised. Patient's LV function has been within normal limits. She underwent elective diagnostic EP study on 07/31/[address] Bertrand revealing nonsustained irregular atrial tachycardia when burst stimulation was performed from the high right atrium. Brief nonsustained ventricular tachycardia with aggressive burst diminished in the right ventricle. The patient was observed overnight. Right groin clean soft with no hematoma present.She was evaluated by Dr. Bertrand on the morning of 08/01/2020 and was deemed stable for discharge home. Please see EMR for further hospital course details Discharge Diagnosis 1. Dizziness with recent event monitor showing nonsustained atrial tachycardia and nonsustained ventricle tachycardia 2. History of coronary artery disease Nurse practitioner note has been reviewed by physician. Signing provider agrees with the documented findings, assessment, and plan of care. Plan - Discharge Summary Discharge Rx Participant: No New Discharge Prescriptions: Continue Desvenlafaxine Succinate [Pristiq ER] 100 mg PO QAM Omeprazole 40 mg PO DAILY #60 capsule. Clopidogrel Bisulfate [Plavix] 75 mg PO HS Aspirin 81 mg PO DAILY chew Atorvastatin [Lipitor] 40 mg PO HS #30 tab Nitroglycerin Sl Tabs [Nitrostat] 0.4 mg SUBLINGUAL Q5M PRN #25 tab PRN Reason: Chest Pain Pregabalin [Lyrica] 75 mg PO HS Potassium(Unk Dose) 10 meq PO DAILY QUEtiapine [SEROquel] 25 mg PO HS Acyclovir 400 mg PO DAILY Losartan [Cozaar] 50 mg PO HS Metoprolol Tartrate [Lopressor] 25 mg PO HS Cyclobenzaprine [Flexeril] 10 mg PO HS diphenhydrAMINE [Benadryl] 25 mg PO HS PRN PRN Reason: Insomnia Discharge Medication List Desvenlafaxine Succinate [Pristiq ER] 100 mg PO QAM 12/14/13 [History] Omeprazole 40 mg PO DAILY #60 capsule.dr 02/17/19 [Rx] Clopidogrel Bisulfate [Plavix] 75 mg PO HS 09/09/19 [History] Aspirin 81 mg PO DAILY chew 11/21/19 [Rx] Atorvastatin [Lipitor] 40 mg PO HS #30 tab 11/21/19 [Rx] Nitroglycerin Sl Tabs [Nitrostat] 0.4 mg SUBLINGUAL Q5M PRN #25 tab 11/21/19 [Rx] Pregabalin [Lyrica] 75 mg PO HS 11/21/19 [History] Potassium(Unk Dose) 10 meq PO DAILY 07/24/20 [History] Acyclovir 400 mg PO DAILY 07/31/20 [History] Cyclobenzaprine [Flexeril] 10 mg PO HS 07/31/20 [History] Losartan [Cozaar] 50 mg PO HS 07/31/20 [History] Metoprolol Tartrate [Lopressor] 25 mg PO HS 07/31/20 [History] QUEtiapine [SEROquel] 25 mg PO HS 07/31/20 [History] diphenhydrAMINE [Benadryl] 25 mg PO HS PRN 07/31/20 [History] Follow up Appointment(s)/Referral(s): Jayesh Nichols MD [STAFF PHYSICIAN] - 08/08/20 10:45 am Patient Instructions/Handouts: Chest Pain (DC), Cardiac Ablation (DC) Activity/Diet/Wound Care/Special Instructions: Post EP study - Ablation instructions 1. Keep access sites dry for 2 days. 2. No heavy lifting or straining for 2 days. 3. Avoid bending the hips repeatedly for 2 days. 4. You may go up and down stairs slowly Call if the following is noted 1. Bleeding, increasing swelling or pain at the access sites. 2. Increasing chest discomfort, especially upon taking a deep breath. 3. Increasing shortness of breath, at rest or with exertion. 4. Undue cough / phlegm 5. Difficulty or pain while swallowing. 6. Pain or change in color in the extremities. 7. Fever, chills, rigors. 8. Increasing headache or neurologic symptoms. 9. Dizziness, fainting, palpitations Follow-up with Dr. Nichols in 1 week Discharge Disposition: HOME SELF-CARE
== END 2020-08-01 13:00 | disposition home or self-care (01) ==
LOC: CATHEP 10:53 → 1SOBS 18:41 → CATHEP 08-01 13:00
PROVIDERS: ATTEND Internal Medicine Clinical Cardiac Electrophysiology
DX: I47.1 Supraventricular tachycardia (principal); I47.2 Ventricular tachycardia; I25.10 Atherosclerotic heart disease of native coronary artery without angina pectoris; I34.1 Nonrheumatic mitral (valve) prolapse; I25.2 Old myocardial infarction; R55 Syncope and collapse; Z82.49 Family history of ischemic heart disease and other diseases of the circulatory system; Z85.3 Personal history of malignant neoplasm of breast; Z86.73 Personal history of transient ischemic attack (TIA), and cerebral infarction without residual deficits; Z79.02 Long term (current) use of antithrombotics/antiplatelets; Z79.82 Long term (current) use of aspirin; Z79.899 Other long term (current) drug therapy; Z88.5 Allergy status to narcotic agent; Z88.2 Allergy status to sulfonamides
CPT/HCPCS: 93623; 93620; 93660; 84443; 84132; C1894; C1769 ×2; C1730 ×2; J2250; J3010; J2704

== ENCOUNTER → 2020-09-03 | Outpatient (CLI) | payer OTHER ==
--- NOTE | 2020-09-03 10:59 | MM ---
Reason for exam: additional evaluation requested from prior study. Last mammogram was performed 1 year ago. History: Patient is postmenopausal and has history of breast cancer at age 57. Family history of breast cancer in mother at age 74. Chemotherapy, July 2013. Mastectomy of the right breast, April 12, 2013. Radiation therapy of the right breast, December 2012. Benign lumpectomy of the right breast, December 11, 2009. Took estrogen for 2 months. Physical Findings: Nurse did not find any significant physical abnormalities on exam. MG 3D Diag Mammo W/Cad LT CC and MLO view(s) were taken of the left breast. Prior study comparison: August 23, 2019, left breast MG 3d diag mammo w/cad LT. July 05, 2018, left breast MG diagnostic mammo LT w CAD. The breast tissue is heterogeneously dense. This may lower the sensitivity of mammography. There is no discrete abnormality including area of concern. Left sided port is in place. No significant new findings when compared with previous films. These results were verbally communicated with the patient and result sheet given to the patient on 09/03/20. ASSESSMENT: Benign, BI-RAD 2 RECOMMENDATION: Follow-up diagnostic mammogram of the left breast in 1 year. Manage patient on a clinical basis.
--- NOTE | 2020-09-03 11:00 | USB ---
Reason for exam: additional evaluation requested from prior study. History: Patient is postmenopausal and has history of breast cancer at age 57. Family history of breast cancer in mother at age 74. Chemotherapy, July 2013. Mastectomy of the right breast, April 12, 2013. Radiation therapy of the right breast, December 2012. Benign lumpectomy of the right breast, December 11, 2009. Took estrogen for 2 months. US Breast RT Right complete breast ultrasound includes all four quadrants, the retroareolar region and axilla. Finding demonstrates midline fluid collection. These results were verbally communicated with the patient and result sheet given to the patient on 09/03/20. ASSESSMENT: Benign, BI-RAD 2 RECOMMENDATION: Follow-up diagnostic mammogram of both breasts in 1 year. Manage patient on a clinical basis.
== END | disposition home or self-care (01) ==
LOC: RADMAMWWP 08:55
PROVIDERS: ATTEND Internal Medicine Hematology & Oncology
DX: N64.4 Mastodynia (principal); Z85.3 Personal history of malignant neoplasm of breast
CPT/HCPCS: 77065; 76641; G0279; 77061

== ENCOUNTER → 2020-09-26 | Outpatient (CLI) | payer OTHER ==
--- NOTE | 2020-09-26 12:00 | XR ---
EXAMINATION TYPE: XR lumbar spine 3V DATE OF EXAM: 09/26/2020 Comparison: 08/18/2019 Clinical History: 64-year-old female M54.9 back pain Findings: Hypertrophic facet arthropathy lower lumbar spine. Trace grade 1 anterolisthesis L5-S1. Mild degenera tive disc disease mid to lower lumbar spine. Vertebral body heights are preserved. Impression: Hypertrophic facet arthropathy lower lumbar spine with degenerative grade 1 anterolisthesis at L5-S1. Mild degenerative disc disease mid to lower lumbar spine. No vertebral compression collapse.
== END | disposition home or self-care (01) ==
LOC: RADXRMAIN 09:42
PROVIDERS: ATTEND Internal Medicine
DX: M43.16 Spondylolisthesis, lumbar region (principal); M51.36 Other intervertebral disc degeneration, lumbar region; M47.816 Spondylosis without myelopathy or radiculopathy, lumbar region
CPT/HCPCS: 72100

== ENCOUNTER 2020-10-08 06:28 | Day surgery (SDC) | payer OTHER ==
[2020-10-05 08:51] VITALS: BMI 27.9
[~2020-10-08 06:28] MED LIST changes: +ACETAMINOPHEN TAB 500 MG TAB PO PRN; +DEXAMETHASONE SOD PHOSPHATE 4 MG/ML 1 ML VIAL IV ONE; +HEPARIN SODIUM,PORCINE 5,000 UNIT/ML 1 ML VIAL SQ PRN; +LIDOCAINE 1% (10MG/ML) FOR IV START INTRADERMA PRN; -LIDOCAINE 1% 20 ML VIAL (10MG/ML) FOR IV START INTRADERMA PRN; +MIDAZOLAM 2 MG/2 ML VIAL IV PRN
[2020-10-08 07:07] LABS: Glucose,Whole Blood 87 mg/dL (75-99)
[2020-10-08 07:15] VITALS: TEMP 97.5
[2020-10-08] MEDS ORDERED: KETAMINE 10 MG/ML 20 ML VIAL ONE (07:45)
[2020-10-08] MEDS ORDERED: fentaNYL (PF) 50 MCG/ML 2 ML AMP ONE (07:45)
[2020-10-08] MEDS ORDERED: MIDAZOLAM 2 MG/2 ML VIAL ONE (07:45)
[2020-10-08] MEDS ORDERED: PROPOFOL 10 MG/ML 20 ML VIAL IV ONE (07:45)
[2020-10-08] MEDS ORDERED: BUPIVACAIN-EPI 0.5%-1:200,000 30 ML VIAL SQ ONE (08:01)
--- NOTE | 2020-10-08 08:22 | P.GSHP ---
History of Present Illness H&P Date: 10/08/20 Chief Complaint: History of breast cancer This is a 64-year-old female who presents today for removal of Port-A-Cath. He still appears history of breast cancer. Past Medical History Past Medical History: Cancer, CVA/TIA, Fibromyalgia, GERD/Reflux, Memory Impairment, Myocardial Infarction (DE), Mitral Valve Prolapse (MVP), Osteoarthritis (OA), Pneumonia Additional Past Medical History / Comment(s): states has some swelling at right breast from fluid swelling, last chemo 2013,HIATAL HERNIA, TIAX2, NO RESIDUAL, HX STAGE 3 RIGHT BREAST CANCER - 2012, hx Kidney stones, Sjogren's, anemia, MENINGITIS, IBS, poor circulation bilateral legs, numbness in toes. states some memory loss Last Myocardial Infarction Date:: 11/2019 History of Any Multi-Drug Resistant Organisms: None Reported Past Surgical History: Adenoidectomy, Breast Surgery, Cholecystectomy, Hysterectomy, Orthopedic Surgery, Tonsillectomy Additional Past Surgical History / Comment(s): FALLOPIAN TUBE AND A MASS REMOVED, hiatel hernia repair X2, ARTHOSCOPIES ON KNEES, right masectomy, bilateral cataracts, SX FOR PTOSIS(eyelids), FABRICIO hand sugery/carpal tunnel and arthroplasty. Past Anesthesia/Blood Transfusion Reactions: No Reported Reaction Additional Past Anesthesia/Blood Transfusion Reaction / Comment(s): PT HAS RECIEVED BLOOD WITH NO REACTION. Smoking Status: Never smoker - Past Family History Father Family Medical History: Hypertension, Myocardial Infarction (DE), Prostate Disorder, Thyroid Disorder Daughter(s) Family Medical History: Blood Disorder Additional Family Medical History / Comment(s): Factor 5. Mother Family Medical History: AFIB, Cancer Additional Family Medical History / Comment(s): Breast cancer. Medications and Allergies Home Medications Medication Instructions Recorded Confirmed Type Desvenlafaxine Succinate [Pristiq 100 mg PO QAM 12/14/13 10/05/20 History ER] Omeprazole 40 mg PO DAILY #60 capsule. 02/17/19 10/05/20 Rx Clopidogrel Bisulfate [Plavix] 75 mg PO HS 09/09/19 10/05/20 History Aspirin 81 mg PO DAILY chew 11/21/19 10/05/20 Rx Atorvastatin [Lipitor] 40 mg PO HS #30 tab 11/21/19 10/05/20 Rx Nitroglycerin Sl Tabs [Nitrostat] 0.4 mg SUBLINGUAL Q5M PRN #25 tab 11/21/19 10/05/20 Rx Pregabalin [Lyrica] 75 mg PO HS 11/21/19 10/05/20 History Acyclovir 400 mg PO DAILY 07/31/20 10/05/20 History Cyclobenzaprine [Flexeril] 10 mg PO HS 07/31/20 10/05/20 History Losartan [Cozaar] 50 mg PO HS 07/31/20 10/05/20 History Metoprolol Tartrate [Lopressor] 25 mg PO HS 07/31/20 10/05/20 History QUEtiapine [SEROquel] 25 mg PO HS 07/31/20 10/05/20 History diphenhydrAMINE [Benadryl] 25 mg PO HS PRN 07/31/20 10/05/20 History Potassium Chloride 10 meq PO DAILY 10/05/20 10/05/20 History predniSONE [Deltasone] 20 mg PO DAILY 10/05/20 10/05/20 History Allergies Allergy/AdvReac Type Severity Reaction Status Date / Time hydromorphone HCl Allergy Severe LOW HEART Verified 10/05/20 08:45 [From Dilaudid] RATE iron sucrose complex Allergy Severe HAD MINI Verified 10/05/20 08:45 [From Venofer] STROKE AFTER INFUSION meperidine HCl [From Demerol] Allergy Intermediate Nausea & Verified 07/24/20 14:27 Vomiting morphine Allergy Intermediate Nausea & Verified 07/24/20 14:27 Vomiting Sulfa (Sulfonamide Allergy Mild Itching Verified 07/24/20 14:27 Antibiotics) Surgical - Exam Vital Signs Temp Pulse BP Pulse Ox 97.5 F L 60 126/60 99 10/08/20 07:13 10/08/20 07:13 10/08/20 07:13 10/08/20 07:13 - General well developed, well nourished, no distress - Eyes PERRL - ENT normal pinna - Neck no masses - Respiratory normal expansion - Cardiovascular Rhythm: regular - Abdomen Abdomen: soft, non tender Assessment and Plan Assessment: We'll remove Port-A-Cath.
--- NOTE | 2020-10-08 08:23 | P.OP ---
Date of Procedure: 10/08/20 Preoperative Diagnosis: History of breast cancer Postoperative Diagnosis: History of breast cancer Procedure(s) Performed: Removal Port-A-Cath Anesthesia: MAC Surgeon: Marcio Reaves Estimated Blood Loss (ml): 5 Pathology: none sent Condition: stable Disposition: PACU Description of Procedure: The patient's placed on the operative table in supine position. She received IV sedation. Her right chest was prepped and draped in sterile fashion. The skin was incised port site. Using a 15 blade skin was incised and using cautery subcu tissue divided. The ports dissected free from some taste tissues. The port and catheter removed intact. The bone was used for hemostasis. Skin was closed interrupted 3-0 Monocryl suture. Dermabond was applied. Patient top she will was sent to recovery in stable condition.
[2020-10-08 08:37] VITALS: BP 125/82; PULSE 65
== END 2020-10-08 09:04 | disposition home or self-care (01) ==
LOC: OR 06:28
PROVIDERS: ATTEND Surgery
DX: Z45.2 Encounter for adjustment and management of vascular access device (principal); C50.911 Malignant neoplasm of unspecified site of right female breast; K21.9 Gastro-esophageal reflux disease without esophagitis; M19.90 Unspecified osteoarthritis, unspecified site; I25.2 Old myocardial infarction; I25.10 Atherosclerotic heart disease of native coronary artery without angina pectoris; Z82.49 Family history of ischemic heart disease and other diseases of the circulatory system; Z83.49 Family history of other endocrine, nutritional and metabolic diseases; Z80.3 Family history of malignant neoplasm of breast; Z79.82 Long term (current) use of aspirin; Z79.899 Other long term (current) drug therapy; Z88.5 Allergy status to narcotic agent; Z88.2 Allergy status to sulfonamides; Z88.8 Allergy status to other drugs, medicaments and biological substances; Z86.73 Personal history of transient ischemic attack (TIA), and cerebral infarction without residual deficits
CPT/HCPCS: 36590; J2250; J1644; J1100; J0690; J2405; J3010; J2704

== ENCOUNTER → 2020-10-11 | Outpatient (CLI) | payer MEDICARE, OTHER ==
--- NOTE | 2020-10-12 09:02 | US ---
EXAMINATION TYPE: US thyroid st tissue head/neck DATE OF EXAM: 10/11/2020 COMPARISON: 05/08/2020 CLINICAL HISTORY: 64-year-old female E04.1 THYROID NODULE. F/U TECHNIQUE: Multiple sonographic images of the thyroid gland are obtained. GLAND SIZE: Right Lobe: 4.7 x 1.6 x 1.7 cm Overall Parenchyma: heterogenous Left Lobe: 5.2 x 1.6 x 1.4 cm Overall Parenchyma: heterogeneous Isthmus Thickness: 0.2 cm NODULES RIGHT: # of nodules measured on right: 1 1. 0.7 X 0.4 x 0.6 cm, mid, solid or almost completely solid, hypoechoic nodule, which is wider hood n tall, with ill-defined margins, without echogenic foci. Prior size: Not visualized on prior LEFT: # of nodules measured on left: 0 Bilateral neck scanned, no evidence of lymphadenopathy. Sub-centimeter nodule right lobe. IMPRESSION: 1. Borderline to mild thyromegaly. 2. A 7 mm nodule at the right midpole was previously not identified. In addition, the previously seen small 5 mm nodule in the left is no longer apparent. Continued follow-up recommended.
== END ==
LOC: RADUSWWP 15:34
PROVIDERS: ATTEND Internal Medicine
DX: E04.1 Nontoxic single thyroid nodule (principal)
CPT/HCPCS: 76536

== ENCOUNTER 2020-10-18 08:56 | Day surgery (SDC) | payer MEDICARE, OTHER ==
[2020-10-16 14:58] VITALS: BMI 27.4
[~2020-10-18 08:56] MED LIST changes: -ACETAMINOPHEN TAB 500 MG TAB PO PRN; -DEXAMETHASONE SOD PHOSPHATE 4 MG/ML 1 ML VIAL IV ONE; -HEPARIN SODIUM,PORCINE 5,000 UNIT/ML 1 ML VIAL SQ PRN; -LIDOCAINE 1% (10MG/ML) FOR IV START INTRADERMA PRN; -MIDAZOLAM 2 MG/2 ML VIAL IV PRN; -ONDANSETRON 4 MG/2 ML VIAL IVP ONE; -fentaNYL (PF) 50 MCG/ML 2 ML AMP IV PRN
[2020-10-18 10:07] VITALS: RESP 16; TEMP 97.1
[2020-10-18] MEDS ORDERED: LIDOCAINE 1% (10MG/ML) FOR IV START INTRADERMA ONE (10:12)
[2020-10-18] MEDS ORDERED: PROPOFOL 10 MG/ML 20 ML VIAL IV ONE (10:47)
--- NOTE | 2020-10-18 10:50 | P.GSHP ---
History of Present Illness H&P Date: 10/18/20 Chief Complaint: Dysphagia A 64-year-old female with history of dysphagia. She presents today for EGD. Past Medical History Past Medical History: Cancer, CVA/TIA, Fibromyalgia, GERD/Reflux, Memory Impairment, Myocardial Infarction (HI), Mitral Valve Prolapse (MVP), Osteoarthritis (OA), Pneumonia Additional Past Medical History / Comment(s): states has some swelling at right breast from fluid swelling, last chemo 2013,HIATAL HERNIA, TIAX2, NO RESIDUAL, HX STAGE 3 RIGHT BREAST CANCER - 2012, hx Kidney stones, Sjogren's, anemia, MENINGITIS, IBS, poor circulation bilateral legs, numbness in toes. states some memory loss Last Myocardial Infarction Date:: 11/2019 History of Any Multi-Drug Resistant Organisms: None Reported Past Surgical History: Adenoidectomy, Breast Surgery, Cholecystectomy, EPS, Hysterectomy, Orthopedic Surgery, Tonsillectomy Additional Past Surgical History / Comment(s): FALLOPIAN TUBE AND A MASS REMOVED, hiatal hernia repair X2, ARTHOSCOPIES ON KNEES, right MASTECTOMY, bilateral cataracts, SX FOR PTOSIS(eyelids), FABRICIO hand sugery/carpal tunnel and arthroplasty. PORT A CATH REMOVED 10/08/20, Past Anesthesia/Blood Transfusion Reactions: No Reported Reaction Additional Past Anesthesia/Blood Transfusion Reaction / Comment(s): PT HAS RECIEVED BLOOD WITH NO REACTION. Smoking Status: Never smoker - Past Family History Father Family Medical History: Hypertension, Myocardial Infarction (HI), Prostate Disorder, Thyroid Disorder Daughter(s) Family Medical History: Blood Disorder Additional Family Medical History / Comment(s): Factor 5. Mother Family Medical History: AFIB, Cancer Additional Family Medical History / Comment(s): Breast cancer. Medications and Allergies Home Medications Medication Instructions Recorded Confirmed Type Desvenlafaxine Succinate [Pristiq 100 mg PO QAM 12/14/13 10/18/20 History ER] Omeprazole 40 mg PO DAILY #60 capsule. 02/17/19 10/18/20 Rx Clopidogrel Bisulfate [Plavix] 75 mg PO HS 09/09/19 10/18/20 History Aspirin 81 mg PO DAILY chew 11/21/19 10/18/20 Rx Atorvastatin [Lipitor] 40 mg PO HS #30 tab 11/21/19 10/18/20 Rx Nitroglycerin Sl Tabs [Nitrostat] 0.4 mg SUBLINGUAL Q5M PRN #25 tab 11/21/19 10/18/20 Rx Pregabalin [Lyrica] 75 mg PO HS 11/21/19 10/18/20 History Acyclovir 400 mg PO DAILY 07/31/20 10/18/20 History Losartan [Cozaar] 50 mg PO HS 07/31/20 10/18/20 History Metoprolol Tartrate [Lopressor] 25 mg PO HS 07/31/20 10/18/20 History QUEtiapine [SEROquel] 25 mg PO HS 07/31/20 10/18/20 History diphenhydrAMINE [Benadryl] 25 mg PO HS PRN 07/31/20 10/18/20 History Potassium Chloride 10 meq PO DAILY 10/05/20 10/18/20 History Allergies Allergy/AdvReac Type Severity Reaction Status Date / Time hydromorphone HCl Allergy Severe LOW HEART Verified 10/16/20 14:49 [From Dilaudid] RATE iron sucrose complex Allergy Severe HAD MINI Verified 10/16/20 14:49 [From Venofer] STROKE AFTER INFUSION meperidine HCl [From Demerol] Allergy Intermediate Nausea & Verified 10/16/20 14:49 Vomiting morphine Allergy Intermediate Nausea & Verified 10/16/20 14:49 Vomiting Sulfa (Sulfonamide Allergy Mild Itching Verified 10/16/20 14:49 Antibiotics) Surgical - Exam Vital Signs Temp Pulse Resp BP Pulse Ox 97.1 F L 63 16 110/58 100 10/18/20 10:03 10/18/20 10:03 10/18/20 10:03 10/18/20 10:03 10/18/20 10:03 - General well developed, well nourished, no distress - Eyes PERRL - ENT normal pinna - Neck no masses - Respiratory normal expansion - Cardiovascular Rhythm: regular - Abdomen Abdomen: soft, non tender Assessment and Plan Assessment: Dysphagia. We'll perform EGD.
--- NOTE | 2020-10-18 11:04 | P.OP ---
Date of Procedure: 10/18/20 Preoperative Diagnosis: Epigastric pain Dysphagia Postoperative Diagnosis: Gastritis Procedure(s) Performed: EGD Anesthesia: MAC Surgeon: Marcio Reaves Pathology: other (Antrum) Condition: stable Disposition: PACU Description of Procedure: The patient's placed on the endoscopy table in the lateral position. She received IV sedation. The gastroscope placed oropharynx passed in the esophagus the first and second portion of the duodenum appeared normal. The scope was then brought back the antrum this appeared inflamed. A biopsies performed. There appeared to be evidence of significant arthritis. The scope was then retroflexed the remainder of the stomach appeared normal. The GE junction was at 47 is. The distal esophagus appeared normal. There is no evidence of recurrent hiatal hernia. The proximal esophagus appeared normal. The scope was then withdrawn from the patient
[2020-10-18 11:30] VITALS: BP 122/83; PULSE 67
== END 2020-10-18 11:40 | disposition home or self-care (01) ==
LOC: ORWHC2ENDO 08:56
PROVIDERS: ATTEND Surgery
DX: K29.70 Gastritis, unspecified, without bleeding (principal); K31.7 Polyp of stomach and duodenum; R13.10 Dysphagia, unspecified; K21.9 Gastro-esophageal reflux disease without esophagitis; E78.5 Hyperlipidemia, unspecified; E07.9 Disorder of thyroid, unspecified; I25.2 Old myocardial infarction; I34.1 Nonrheumatic mitral (valve) prolapse; M79.7 Fibromyalgia; M19.90 Unspecified osteoarthritis, unspecified site; M35.00 Sjogren syndrome, unspecified; K58.9 Irritable bowel syndrome, unspecified; F41.9 Anxiety disorder, unspecified; F32.9 Major depressive disorder, single episode, unspecified; Z79.82 Long term (current) use of aspirin; Z79.899 Other long term (current) drug therapy; Z82.49 Family history of ischemic heart disease and other diseases of the circulatory system; Z85.3 Personal history of malignant neoplasm of breast; Z83.49 Family history of other endocrine, nutritional and metabolic diseases; Z86.73 Personal history of transient ischemic attack (TIA), and cerebral infarction without residual deficits; Z87.442 Personal history of urinary calculi; Z80.3 Family history of malignant neoplasm of breast; Z88.5 Allergy status to narcotic agent; Z88.2 Allergy status to sulfonamides
CPT/HCPCS: 88305; 43239; J2704

== ENCOUNTER → 2020-10-25 | Outpatient (CLI) | payer MEDICARE, OTHER ==
--- NOTE | 2020-10-25 16:39 | CT ---
EXAMINATION TYPE: CT abdomen pelvis w con DATE OF EXAM: 10/25/2020 COMPARISON: 06/23/2014 INDICATION: Diverticulitis. Abdominal bloating after eating. DLP: 855.7 mGycm, Automated exposure control for dose reduction was used. CONTRAST: 100 mL of Isovue M300. Study performed with Oral Contrast TECHNIQUE: Axial images were obtained from above the diaphragm to the pubic rami in the axial plane a t 5 mm thick sections. Reconstructed images are reviewed on the computer in the coronal plane. FINDINGS: Limited CT sections are obtained the lung bases. The lung bases are clear. Small hiatal hernia is p resent. Postsurgical clips are in the epigastric region. CT ABDOMEN: Loops of bowel are anterior to the liver. Liver: Normal Spleen: Normal Pancreas: Normal Adrenal glands: The adrenal glands are normal. Gallbladder: Surgically absent Kidneys: No masses are evident. No hydronephrosis is present. Parapelvic cysts are present. A coupl e small cortical renal cysts are present on the delayed images. Delayed images were obtained through the kidneys, which remain unremarkable. Aorta: Vascular calcification is within the aorta. Inferior vena cava: Normal. CT PELVIS: Loops of bowel within the abdomen and pelvis are normal. Significant diverticular changes are not id entified. No suspicious inflammatory changes are evident suggesting diverticulitis. Some mild fecal r etention may be present. There are loops of bowel which are incompletely distended or lack oral con trast limiting their evaluation. Appendix: Normal as visualized. Urinary bladder: Normal. Genitourinary structures: Uterus and ovaries are absent. Osseous structures: No suspicious lytic or sclerotic lesions. Degenerative change. IMPRESSIONS: 1. No suspicious changes to suggest acute diverticulitis. 2. Mild fecal retention
== END | disposition home or self-care (01) ==
LOC: RADCTMAIN 11:50
PROVIDERS: ATTEND Surgery
DX: K59.00 Constipation, unspecified (principal)
CPT/HCPCS: 74177; Q9967 ×2

== ENCOUNTER → 2021-01-28 | Outpatient (CLI) | payer MEDICARE, OTHER ==
--- NOTE | 2021-01-29 03:41 | MR ---
EXAMINATION TYPE: MR brain wo con DATE OF EXAM: 01/28/2021 COMPARISON: 04/22/2019 HISTORY: Dizziness, lightheaded. Multiplanar multiecho imaging of the brain was performed without contrast. There is mild cerebral atrophy. There is no mass effect nor midline shift. There is no sign of intra cranial hemorrhage. Diffusion images show no sign of an acute infarct. The torrez-white matter structur es have fairly normal signal pattern. There is no evidence of cerebral edema. Brainstem is intact. Se lla turcica appears normal. Corpus callosum is intact. There is no evidence of orbital mass. There is no evidence of a posterior fossa mass. IMPRESSION: There is mild cerebral atrophy appropriate for age. No acute intracranial abnormality. No evidence of infarct. No adverse change compared to old exam.
== END | disposition home or self-care (01) ==
LOC: RADMRIMAIN 19:20
PROVIDERS: ATTEND Internal Medicine
DX: G31.9 Degenerative disease of nervous system, unspecified (principal)
CPT/HCPCS: 70551

== ENCOUNTER → 2021-06-28 | Outpatient (CLI) | payer MEDICARE, OTHER ==
[~2021-06-28] MED LIST changes: +CASIRIVIMAB (REGN10933) (EUA) 600 MG, IMDEVIMAB (REGN10987) (EUA) 600 MG in SODIUM CHLO... IVPB ONE; -LACTATED RINGERS 1,000 ML IV SCH; +SODIUM CHLORIDE 0.9% 50 ML IVPB ONE; +SODIUM CHLORIDE 0.9% 500 ML 500 ML in EMPTY BAG 1 BAG IV PRN
[2021-06-28 14:02] VITALS: PULSE 76; RESP 16; TEMP 98.3
[2021-06-28 14:05] VITALS: BP 154/88
== END ==
LOC: PROCWHC3 13:41
PROVIDERS: ATTEND Internal Medicine Geriatric Medicine
DX: U07.1 COVID-19 (principal); E66.9 Obesity, unspecified; Z88.5 Allergy status to narcotic agent; Z88.6 Allergy status to analgesic agent
CPT/HCPCS: 96360; Q0243; M0243

== ENCOUNTER → 2021-09-19 | Outpatient (CLI) | payer MEDICARE, OTHER ==
--- NOTE | 2021-09-19 09:49 | MM ---
Reason for exam: additional evaluation requested from prior study. Last mammogram was performed 1 year and 1 month ago. History: Patient is postmenopausal and has history of breast cancer at age 57. Family history of breast cancer in mother at age 74. Chemotherapy, July 2013. Mastectomy of the right breast, April 12, 2013. Radiation therapy of the right breast, December 2012. Benign lumpectomy of the right breast, December 11, 2009. Took estrogen for 2 months. Physical Findings: Nurse did not find any significant physical abnormalities on exam. MG 3D Diag Mammo W/Cad LT CC, MLO, and XCCL view(s) were taken of the left breast. Prior study comparison: September 03, 2020, left breast MG 3d diag mammo w/cad LT. August 23, 2019, left breast MG 3d diag mammo w/cad LT. The breast tissue is heterogeneously dense. This may lower the sensitivity of mammography. Benign vascular calcifications. Port removed. No significant new findings when compared with previous films. These results were verbally communicated with the patient and result sheet given to the patient on 09/19/21. ASSESSMENT: Benign, BI-RAD 2 RECOMMENDATION: Follow-up diagnostic mammogram of the left breast in 1 year. Manage on a clinical basis with regard to inferior breast discomfort.
== END | disposition home or self-care (01) ==
LOC: RADMAMWWP 07:16
PROVIDERS: ATTEND Internal Medicine Hematology & Oncology
DX: R92.1 Mammographic calcification found on diagnostic imaging of breast (principal); Z78.0 Asymptomatic menopausal state; Z85.3 Personal history of malignant neoplasm of breast; Z80.3 Family history of malignant neoplasm of breast
CPT/HCPCS: 77065; G0279; 77061

== ENCOUNTER → 2021-09-19 | Outpatient (CLI) | payer MEDICARE, OTHER ==
--- NOTE | 2021-09-19 09:08 | CT ---
EXAMINATION TYPE: CT brain wo con DATE OF EXAM: 09/19/2021 COMPARISON: MRI dated 01/20/2021 HISTORY: Chronic headache CT DLP: 1092.1 mGycm Automated exposure control for dose reduction was used. TECHNIQUE: CT scan of the brain without IV contrast administration. FINDINGS: Pontine hypodensities, possibly artifactual. 3 mm calcification is seen in the left foramen of [place] , unchanged since 2011 [address] scan. Otherwise unremarkable morphology of the cerebral hemispheres, cerebe llum and brainstem. No acute intracranial hemorrhage or gross acute cortical infarct. No midline shift, herniation or cory triculomegaly. Unremarkable torrez-white matter differentiation, basal cisterns, sella and CP angles. N o gross space-occupying lesion, vasogenic edema or mass effect. No gross orbital abnormality. Clear visualized paranasal sinuses and mastoid air cells. Unremarkable visualized calvarial bones. Please note that the anterior aspect of the frontal bone is not included in the scan. IMPRESSION: No acute intracranial abnormality or space-occupying lesion by this nonenhanced CT scan.
== END | disposition home or self-care (01) ==
LOC: RADCTMAIN 06:49
PROVIDERS: ATTEND Internal Medicine Geriatric Medicine
DX: R51.9 Headache, unspecified (principal)
CPT/HCPCS: 70450

== ENCOUNTER → 2021-12-03 | Outpatient (CLI) | payer MEDICARE, OTHER ==
[2021-12-03 19:25] LABS: Albumin 4.5 g/dL (3.8-4.9); Albumin/Globulin Ratio 2.18 (1.60-3.17); Anion Gap 12.3 mmol/L (10.00-18.00); BUN/Creat Ratio 19.64 Ratio (12.00-20.00); Blood Urea Nitrogen 15.3 mg/dL (9.0-27.0); Calcium 9.2 mg/dL (8.7-10.3); Globulin 2.1 g/dL (1.6-3.3); Non-African American GFR(CKD) 79.3 (60.0-200.0); Total Bilirubin 0.4 mg/dL (0.30-1.20); Total Protein 6.5 g/dL (6.2-8.2)
[2021-12-03 23:16] LABS: Basophils # (A) 0.01 X 10*3/uL (0.00-0.10); Basophils % (A) 0.1 %; Eosinophils # (A) 0 X 10*3/uL (0.04-0.35); Eosinophils % (A) 0 %; HCT 38.6 % (37.2-46.3); HGB 11.8 g/dL (12.0-15.0); Immature Grans, Automated 0.1 %; Lymphocytes # (A) 1.75 X 10*3/uL (0.90-5.00); Lymphocytes % (A) 24.9 %; MCH 28.5 pg (27.0-32.0); MCHC 30.6 g/dL (32.0-37.0); MCV 93.2 fL (80.0-97.0); Mean Platelet Volume 12.9 fL (9.5-12.2); Monocytes # (A) 0.41 X 10*3/uL (0.20-1.00); Monocytes % (A) 5.8 %; NRBC Per 100 WBC 0 /100 WBCS (0.0-0.0); Neutrophils # (A) 4.84 X 10*3/uL (1.80-7.70); Neutrophils % (A) 69.1 %; Platelet Count 223 X 10*3/uL (140-440); RBC 4.14 X 10*6/uL (4.10-5.20); RDW 13.2 % (11.5-14.5); WBC 7.02 X 10*3/uL (4.50-10.00)
== END | disposition home or self-care (01) ==
LOC: LABWHC1 10:22
PROVIDERS: ATTEND Nurse Practitioner Acute Care
DX: I25.10 Atherosclerotic heart disease of native coronary artery without angina pectoris (principal); E55.9 Vitamin D deficiency, unspecified; E53.9 Vitamin B deficiency, unspecified; G43.019 Migraine without aura, intractable, without status migrainosus; G45.9 Transient cerebral ischemic attack, unspecified
CPT/HCPCS: 36415; 80053; 82306; 82607; 84207; 85025

== ENCOUNTER → 2022-03-13 | Outpatient (CLI) | payer MEDICARE, OTHER ==
[2022-03-13 18:36] LABS: ALT 21 U/L (8-44); AST 24 U/L (13-35); Chol/HDL Ratio 3.06 Ratio; LDL Cholesterol,Calculated 106.9 mg/dL (0.0-131.0)
== END | disposition home or self-care (01) ==
LOC: LABWHC1 12:06
PROVIDERS: ATTEND Internal Medicine Interventional Cardiology
DX: I25.10 Atherosclerotic heart disease of native coronary artery without angina pectoris (principal); E78.5 Hyperlipidemia, unspecified
CPT/HCPCS: 36415; 80061; 84450; 84460

== ENCOUNTER 2022-07-16 13:55 | Inpatient (IN) | payer MEDICARE, OTHER ==
[2022-07-16] MEDS ORDERED: NITROGLYCERIN OINT 1 INCH/GM PACKET TOPICAL STA (16:51)
[2022-07-16] MEDS ORDERED: ASPIRIN 81 MG PO STA (16:51)
--- NOTE | 2022-07-16 19:01 | XR ---
EXAMINATION TYPE: XR chest 2V DATE OF EXAM: 07/16/2022 6:45 PM COMPARISON: Chest radiographs from 11/19/2019 TECHNIQUE: XR chest 2V Frontal and lateral views of the chest. CLINICAL INDICATION:Female, 66 years old with history of Chest Pain; FINDINGS: Lungs/Pleura: There is no evidence of pleural effusion, focal consolidation, or pneumothorax. Pulmonary vascularity: Unremarkable. Heart/mediastinum: Cardiomediastinal silhouette is unremarkable. Musculoskeletal: No acute osseous pathology. IMPRESSION: No acute cardiopulmonary disease/process.
[2022-07-16 19:03] LABS: Basophils % (A) 0 %; Eosinophils % (A) 1 %; HCT 39.3 % (34.0-46.0); HGB 13.4 gm/dL (11.4-16.0); Lymphocytes # (A) 1.7 k/uL (1.0-4.8); Lymphocytes % (A) 29 %; MCH 29.8 pg (25.0-35.0); MCHC 34.1 g/dL (31.0-37.0); MCV 87.3 fL (80.0-100.0); Mean Platelet Volume 9.6; Monocytes # (A) 0.3 k/uL (0-1.0); Monocytes % (A) 5 %; Neutrophils # (A) 3.6 k/uL (1.3-7.7); Neutrophils % (A) 63 %; RDW 12.2 % (11.5-15.5); WBC 5.7 k/uL (3.8-10.6)
[2022-07-16 19:07] LABS: ALT 18 U/L (4-34); AST 28 U/L (14-36); African American GFR (CKD) >90 (>60 ml/min/1.73 sqM); Albumin 4.6 g/dL (3.5-5.0); Alkaline Phosphatase 88 U/L (38-126); Anion Gap 6 mmol/L; Blood Urea Nitrogen 17 mg/dL (7-17); Calcium 9.3 mg/dL (8.4-10.2); Carbon Dioxide 25 mmol/L (22-30); Chloride 105 mmol/L (98-107); Glucose 87 mg/dL (74-99); Magnesium 1.8 mg/dL (1.6-2.3); Non-African American GFR(CKD) 83 (>60 ml/min/1.73 sqM); Potassium 3.9 mmol/L (3.5-5.1); Sodium 136 mmol/L (137-145); Total Bilirubin 0.6 mg/dL (0.2-1.3); Total Protein 7.2 g/dL (6.3-8.2)
[2022-07-16 19:08] LABS: Partial Thromboplastin Time 23.3 sec (22.0-30.0); Prothrombin Time 10.9 sec (9.0-12.0)
--- NOTE | 2022-07-16 19:19 | ED ---
Chest Pain HPI - General Chief Complaint: Chest Pain Stated Complaint: chest pain Time Seen by Provider: 07/16/22 16:37 Source: patient Mode of arrival: ambulatory Limitations: no limitations - History of Present Illness Initial Comments: This 66-year-old female present with complaint of some chest pain. She states that she's been having it intermittently for the last 1 month. It is in her left chest and seems to radiate into her left shoulder. She does complain of some decreased energy and occasional shortness of breath as well. She apparently did have occasional lightheadedness. She had a positive stress test over the past couple of weeks. She followed up with Dr. Han from cardiology and he wanted to do a heart catheterization on her 2 days ago but the patient apparently refused and wanted to wait until after the new year. She states that over the past several days the symptoms seem worse. She has been prescribed sublingual nitroglycerin but states that she forgot to utilize this. She also has a history of previous myocardial infarction in 2019 but did not receive a cardiac stent at that time. She denies any leg pain or swelling or history of DVT or PE. No other complaints or modifying factors. - Related Data Home Medications Medication Instructions Recorded Confirmed Desvenlafaxine Succinate [Pristiq 100 mg PO QAM 12/14/13 06/28/21 ER] Clopidogrel Bisulfate [Plavix] 75 mg PO HS 09/09/19 06/28/21 Pregabalin [Lyrica] 75 mg PO HS 11/21/19 06/28/21 Acyclovir 400 mg PO DAILY 07/31/20 06/28/21 Losartan [Cozaar] 50 mg PO HS 07/31/20 06/28/21 Metoprolol Tartrate [Lopressor] 25 mg PO HS 07/31/20 06/28/21 QUEtiapine [SEROquel] 25 mg PO HS 07/31/20 06/28/21 diphenhydrAMINE [Benadryl] 25 mg PO HS PRN 07/31/20 06/28/21 Potassium Chloride [Potassium 10 meq PO DAILY 10/05/20 06/28/21 Chloride ER] Previous Rx's Medication Instructions Recorded Omeprazole 40 mg PO DAILY #60 capsule. 02/17/19 Aspirin 81 mg PO DAILY chew 11/21/19 Atorvastatin [Lipitor] 40 mg PO HS #30 tab 11/21/19 Nitroglycerin Sl Tabs [Nitrostat] 0.4 mg SUBLINGUAL Q5M PRN #25 tab 11/21/19 Allergies Allergy/AdvReac Type Severity Reaction Status Date / Time hydromorphone HCl Allergy Severe LOW HEART Verified 07/16/22 14:46 [From Dilaudid] RATE iron sucrose complex Allergy Severe HAD MINI Verified 07/16/22 14:46 [From Venofer] STROKE AFTER INFUSION meperidine HCl [From Demerol] Allergy Intermediate Nausea & Verified 07/16/22 14:46 Vomiting morphine Allergy Intermediate Nausea & Verified 07/16/22 14:46 Vomiting Sulfa (Sulfonamide Allergy Mild Itching Verified 07/16/22 14:46 Antibiotics) Review of Systems ROS Statement: Those systems with pertinent positive or pertinent negative responses have been documented in the HPI. ROS Other: All systems not noted in ROS Statement are negative. Past Medical History Past Medical History: Cancer, CVA/TIA, Fibromyalgia, GERD/Reflux, Memory Impairment, Myocardial Infarction ([place]), Mitral Valve Prolapse (MVP), Osteoarthritis (OA), Pneumonia Additional Past Medical History / Comment(s): states has some swelling at right breast from fluid swelling, last chemo 2013,HIATAL HERNIA, TIAX2, NO RESIDUAL, HX STAGE 3 RIGHT BREAST CANCER - 2012, hx Kidney stones, Sjogren's, anemia, MENINGITIS, IBS, poor circulation bilateral legs, numbness in toes. states some memory loss Last Myocardial Infarction Date:: 11/2019 History of Any Multi-Drug Resistant Organisms: None Reported Past Surgical History: Adenoidectomy, Breast Surgery, Cholecystectomy, Hysterectomy, Orthopedic Surgery, Tonsillectomy Additional Past Surgical History / Comment(s): FALLOPIAN TUBE AND A MASS REMOVED, hiatel hernia repair X2, ARTHOSCOPIES ON KNEES, right masectomy, bilateral cataracts, SX FOR PTOSIS(eyelids), FABRICIO hand sugery/carpal tunnel and arthroplasty. Past Anesthesia/Blood Transfusion Reactions: No Reported Reaction Additional Past Anesthesia/Blood Transfusion Reaction / Comment(s): PT HAS RECIEVED BLOOD WITH NO REACTION. Past Psychological History: Anxiety, Depression Smoking Status: Never smoker Past Alcohol Use History: Occasional Past Drug Use History: None Reported - Past Family History Father Family Medical History: Hypertension, Myocardial Infarction ([place]), Prostate Disorder, Thyroid Disorder Daughter(s) Family Medical History: Blood Disorder Additional Family Medical History / Comment(s): Factor 5. Mother Family Medical History: AFIB, Cancer Additional Family Medical History / Comment(s): Breast cancer. General Exam - General Exam Comments Initial Comments: GENERAL: The patient is well nourished and well hydrated. VITAL SIGNS: Heart rate, blood pressure, respiratory rate reviewed as recorded in nurse's notes. EYES: Pupils are round and reactive. Extraocular movements are intact. No conjunctival / lid redness or swelling. ENT: No external evidence of injury, swelling, or ecchymosis. Airway is patent. Throat is clear. NECK: Nontender. No swelling or evidence of injury. No subcutaneous emphysema. Trachea is midline. No thyroid mass. HEART: Regular rate and rhythm. Good peripheral pulses. LUNGS/CHEST: Breath sounds clear and equal bilaterally. No rales, rhonchi, or wheezes. No ecchymosis, subcutaneous emphysema, or tenderness. ABDOMEN: Abdomen soft without tenderness. No palpable masses or organomegaly. No peritoneal signs. No abdominal wall swelling or ecchymosis. EXTREMITIES: No extremity tenderness. Normal muscle tone and function. No thoracolumbar tenderness. NEUROLOGIC: Sensation is grossly intact. Cranial nerve exam reveals face is symmetrical, tongue is midline, speech is clear. SKIN: No abrasions or ecchymosis is noted. No induration or masses noted. PSYCHIATRIC: Alert and oriented. Appropriate behavior and judgment. Limitations: no limitations Course Vital Signs 07/16/22 14:43 Temperature 98.3 F Pulse Rate 67 Respiratory 20 Rate Blood Pressure 120/80 O2 Sat by Pulse 100 Oximetry Chest Pain [facility] The patient was seen and examined. All diagnostics are reviewed. The EKG shows a sinus bradycardia at a rate of 56. There is no acute ST-T wave changes identified. The CO intervals 175, QS duration is 81, and the QTc interval is 416. Chest x-ray was completed and reviewed by myself in no acute processes identified per my review and radiology review. The cardiac profile labs are all essentially within normal limits. It is felt as though she has fairly classic and significant chest pain symptomatology with recent positive stress test and will require admission to the hospital for further cardiology evaluation. She may potentially need heart catheterization in the semi-near future as well. She is agreeable to this plan. She receives aspirin as well as nitroglycerin paste. Case is discussed with internal medicine and they're agreeable with admission with cardiology to consult. Disposition Clinical Impression: Chest pain, Unstable angina pectoris, Dyspnea Disposition: ADMITTED IP TO THIS HOSP Condition: Fair Is patient prescribed a controlled substance at d/c from ED?: No Time of Disposition: 19:19 Decision Date: 07/16/22 Decision Time: 19:19
[2022-07-16 19:39] LABS: RBC Morphology Normal
[2022-07-16] MEDS ORDERED: NITROGLYCERIN SL TABS 0.4 MG TAB SUBLINGUAL PRN ×2 (19:53→21:24)
[2022-07-16] MEDS ORDERED: ACETAMINOPHEN TAB 325 MG TAB PO PRN (19:53)
[2022-07-16] MEDS ORDERED: tiZANidine 4 MG TAB PO PRN (21:24)
[2022-07-16] MEDS ORDERED: ONDANSETRON 4 MG/2 ML VIAL IVP PRN (21:28)
[2022-07-16] MEDS: KETOROLAC 15 MG/ML 1 ML VIAL IVP PRN (22:11)
[2022-07-16] MEDS: PREGABALIN 75 MG CAP PO SCH (22:11)
[2022-07-16] MEDS: METOPROLOL TARTRATE 12.5 MG TAB PO SCH (22:11)
[2022-07-16] MEDS: traZODone HCL 100 MG TAB PO SCH (22:11)
[2022-07-16] MEDS: ATORVASTATIN 40 MG TAB PO SCH (22:11)
[2022-07-17] MEDS: NITROGLYCERIN OINT 1 INCH/GM PACKET TOPICAL SCH ×5 (00:55→23:04)
[2022-07-17] MEDS: KETOROLAC 15 MG/ML 1 ML VIAL IVP PRN ×3 (06:02→22:00)
[2022-07-17] MEDS ORDERED: ASPIRIN 325 MG TAB PO STA (09:06)
[2022-07-17] MEDS ORDERED: ATORVASTATIN 80 MG TAB PO STA (09:06)
[2022-07-17] MEDS ORDERED: ALPRAZolam 0.25 MG TAB PO PRN (09:06)
[2022-07-17] MEDS ORDERED: NITROGLYCERIN SL TABS 0.4 MG TAB SUBLINGUAL PRN (09:06)
[2022-07-17] MEDS ORDERED: ALPRAZolam 0.5 MG TAB PO PRN (09:06)
[2022-07-17 09:16] LABS: Chol/HDL Ratio 3.26 Ratio; LDL Cholesterol,Calculated 96.7 mg/dL (0.0-131.0)
--- NOTE | 2022-07-17 10:06 | P.CRDCN ---
History of Present Illness Consult date: 07/17/22 Consult reason: chest pain History of present illness: History of present illness: This is a 66-year-old female patient of Dr. Isaac with past medical history of coronary artery disease as well as hypertension and hyperlipidemia Patient states that she's been having heartburn sensation over the past month and getting worse. She last saw Dr. Isaac one week ago and had a stress test and ultrasound done which she was told was abnormal and a cardiac catheterization was recommended. Patient requested to wait until August to get through the hol idays. She now presents to the emergency center due to worsening chest pain. EKG is a sinus bradycardia at a heart rate of 56 bpm, in no acute changes 2 CBC unremarkable. INR 1. CMP unremarkable. Troponin negative 3. Triglycerides 113, cholesterol 172, LDL 96, HDL 52. Chest x-ray normal EP study 07/2020 found nonsustained irregular atrial tachycardia and brief nonsustained ventricular tachycardia. Arrhythmias Cardiac catheterization 11/2019 revealed right dominant system, normal filling pressures, no gradient across the aortic valve. A small branch off the distal circumflex has a subtotal occlusion and the vessel is 11 0.5 mm or less and this is the culprit lesion. LAD and dominant RCA are free of significant disease. No other areas of disease in the circumflex system. Echocardiogram 07/03/2022 revealed EF 50-55%, moderate mitral regurgitation, mild to moderate tricuspid regurgitation Lexiscan Cardiolite stress test performed on 07/03 revealed abnormal reversible defect of small size and mild intensity involving the anterior wall of the left ventricle Review Of Systems: At the time of my evaluation Constitutional: No fever, no chills. No weakness, fatigue or lethargy. EENT: No headache. No dizziness. Lungs: No shortness of breath, cough, no sputum production. No wheezing. Cardiovascular: Reports chest pain, no lower extremity edema. No palpitations. No paroxysmal nocturnal dyspnea. No orthopnea. No lightheadedness or dizziness. No syncopal episodes. Abdominal: No abdominal pain. No nausea, vomiting. No diarrhea. No constipation. No bloody or tarry stools.. No loss of appetite. Genitourinary: No dysuria.. No urinary retention. Musculoskeletal: No myalgias. No muscle weakness, no gait dysfunction, no frequent falls. No back pain. No neck pain. Integumentary: No wounds. No rash or pruritus. No unusual bruising. Neurologic: No aphasia. No facial droop. No change in mentation. No head injury. No headache. No paralysis. No paresthesia. Psychiatric: No depression. No anxiety. Endocrine: No abnormal blood sugars. Physical examination: Gen: This is a 66-year-old female. She is resting on ER stretcher and appears to be comfortable at rest VS: reviewed HEENT: Head is atraumatic, normocephalic. Pupils equal, round. Sclerae is anicteric. NECK: Supple. No JVD. LUNGS: Clear to auscultation. No wheezes or rhonchi. No intercostal retractions. HEART: Regular rate and rhythm. Systolic murmur. ABDOMEN: Soft. No masses. No tenderness. EXTREMITIES: No pedal edema. No calf tenderness. NEUROLOGICAL: Patient is awake, alert and oriented x3. Assessment: Chest pain, acute coronary syndrome ruled out Rule out coronary artery disease Abnormal myocardial perfusion imaging stress test with anterior ischemia Moderate mitral regurgitation History of SVT Plan: No need to repeat echocardiogram Patient scheduled for left heart catheterization with Dr. Isaac today at noon Continue patient on aspirin 81 mg daily, Lipitor 40 mg daily, Lopressor 12.5 mg twice daily Further recommendations to follow based upon clinical course Thank you kindly for this consultation. Nurse practitioner note has been reviewed, I agree with documented findings and plan of care. Patient was seen and examined. Past Medical History Past Medical History: Cancer, CVA/TIA, Fibromyalgia, GERD/Reflux, Memory Impairment, Myocardial Infarction ([place]), Mitral Valve Prolapse (MVP), Osteoarthritis (OA), Pneumonia Additional Past Medical History / Comment(s): states has some swelling at right breast from fluid swelling, last chemo 2013,HIATAL HERNIA, TIAX2, NO RESIDUAL, HX STAGE 3 RIGHT BREAST CANCER - 2012, hx Kidney stones, Sjogren's, anemia, MENINGITIS, IBS, poor circulation bilateral legs, numbness in toes. states some memory loss Last Myocardial Infarction Date:: 11/2019 History of Any Multi-Drug Resistant Organisms: None Reported Past Surgical History: Adenoidectomy, Breast Surgery, Cholecystectomy, Hysterectomy, Orthopedic Surgery, Tonsillectomy Additional Past Surgical History / Comment(s): FALLOPIAN TUBE AND A MASS REMOVED, hiatel hernia repair X2, ARTHOSCOPIES ON KNEES, right masectomy, bilateral cataracts, SX FOR PTOSIS(eyelids), FABRICIO hand sugery/carpal tunnel and arthroplasty. Past Anesthesia/Blood Transfusion Reactions: No Reported Reaction Additional Past Anesthesia/Blood Transfusion Reaction / Comment(s): PT HAS RECIEVED BLOOD WITH NO REACTION. Past Psychological History: Anxiety, Depression Smoking Status: Never smoker Past Alcohol Use History: Occasional Past Drug Use History: None Reported - Past Family History Father Family Medical History: Hypertension, Myocardial Infarction ([place]), Prostate Disorder, Thyroid Disorder Daughter(s) Family Medical History: Blood Disorder Additional Family Medical History / Comment(s): Factor 5. Mother Family Medical History: AFIB, Cancer Additional Family Medical History / Comment(s): Breast cancer. Medications and Allergies Home Medications Medication Instructions Recorded Confirmed Type Omeprazole 40 mg PO DAILY #60 capsule. 02/17/19 07/16/22 Rx Aspirin 81 mg PO DAILY chew 11/21/19 07/16/22 Rx Atorvastatin [Lipitor] 40 mg PO HS #30 tab 11/21/19 07/16/22 Rx Nitroglycerin Sl Tabs [Nitrostat] 0.4 mg SUBLINGUAL Q5M PRN #25 tab 11/21/19 07/16/22 Rx Pregabalin [Lyrica] 75 mg PO HS 11/21/19 07/16/22 History Desvenlafaxine [Pristiq ER] 100 mg PO DAILY 07/16/22 07/16/22 History Metoprolol Tartrate [Lopressor] 12.5 mg PO BID 07/16/22 07/16/22 History tiZANidine [Zanaflex] 4 mg PO BID PRN 07/16/22 07/16/22 History traZODone HCL [Desyrel] 100 mg PO HS 07/16/22 07/16/22 History Allergies Allergy/AdvReac Type Severity Reaction Status Date / Time hydromorphone HCl Allergy Severe LOW HEART Verified 07/16/22 20:50 [From Dilaudid] RATE iron sucrose complex Allergy Severe HAD MINI Verified 07/16/22 20:50 [From Venofer] STROKE AFTER INFUSION meperidine HCl [From Demerol] Allergy Intermediate Nausea & Verified 07/16/22 20:50 Vomiting morphine Allergy Intermediate Nausea & Verified 07/16/22 20:50 Vomiting Sulfa (Sulfonamide Allergy Mild Itching Verified 07/16/22 20:50 Antibiotics) Physical Exam Vitals: Vital Signs Temp Pulse Resp BP Pulse Ox 07/17/22 06:00 50 L 16 97/60 98 07/16/22 21:30 61 18 138/75 100 07/16/22 14:43 98.3 F 67 20 120/80 100 Results 07/16/22 18:36 07/16/22 18:36 Cardiac Enzymes 07/16/22 07/16/22 07/16/22 Range/Units 18:36 18:36 20:30 AST 28 (14-36) U/L Troponin I <0.012 <0.012 (0.000-0.034) ng/mL 07/17/22 Range/Units 00:04 AST (14-36) U/L Troponin I <0.012 (0.000-0.034) ng/mL Coagulation 07/16/22 Range/Units 18:36 PT 10.9 (9.0-12.0) sec APTT 23.3 (22.0-30.0) sec CBC 07/16/22 Range/Units 18:36 WBC 5.7 (3.8-10.6) k/uL RBC 4.50 (3.80-5.40) m/uL Hgb 13.4 (11.4-16.0) gm/dL Hct 39.3 (34.0-46.0) % Plt Count (150-450) k/uL Comprehensive Metabolic Panel 07/16/22 Range/Units 18:36 Sodium 136 L (137-145) mmol/L Potassium 3.9 (3.5-5.1) mmol/L Chloride 105 (98-107) mmol/L Carbon Dioxide 25 (22-30) mmol/L BUN 17 (7-17) mg/dL Creatinine 0.76 (0.52-1.04) mg/dL Glucose 87 (74-99) mg/dL Calcium 9.3 (8.4-10.2) mg/dL AST 28 (14-36) U/L ALT 18 (4-34) U/L Alkaline Phosphatase 88 (38-126) U/L Total Protein 7.2 (6.3-8.2) g/dL Albumin 4.6 (3.5-5.0) g/dL Current Medications Generic Name Dose Route Start Last Admin Trade Name Freq PRN Reason Stop Dose Admin Acetaminophen 650 mg 07/16/22 19:53 Acetaminophen Tab 325 Mg Tab PO Q4HR PRN Pain Aspirin 325 mg 07/17/22 09:00 Aspirin 325 Mg Tab PO DAILY [facility] Atorvastatin Calcium 40 mg 07/16/22 21:45 07/16/22 22:11 Atorvastatin 40 Mg Tab PO 40 mg HS JANINE Administration Desvenlafaxine Succinate 100 mg 07/17/22 09:00 Desvenlafaxine Succinate 50 Mg Tab.Er.24h PO DAILY [facility] Enoxaparin Sodium 40 mg 07/17/22 09:00 Enoxaparin 40 Mg/0.4 Ml Syringe SQ DAILY [facility] Ketorolac Tromethamine 15 mg 07/16/22 21:28 07/17/22 06:02 Ketorolac 15 Mg/Ml 1 Ml Vial IVP 07/19/22 21:28 15 mg Q6HR PRN Administration Pain Metoprolol Tartrate 12.5 mg 07/16/22 21:45 07/16/22 22:11 Metoprolol Tartrate 12.5 Mg Tab PO 12.5 mg BID [facility] Administration Nitroglycerin 1 inch 07/17/22 00:00 07/17/22 05:42 Nitroglycerin Oint 1 Inch/Gm Packet TOPICAL Not Given Q6HR [facility] Nitroglycerin 0.4 mg 07/16/22 21:24 Nitroglycerin Sl Tabs 0.4 Mg Tab SUBLINGUAL Q5M PRN Chest Pain Ondansetron HCl 4 mg 07/16/22 21:28 07/17/22 06:02 Ondansetron 4 Mg/2 Ml Vial IVP 4 mg Q4H PRN Administration Nausea Pantoprazole Sodium 40 mg 07/17/22 07:30 Pantoprazole 40 Mg Tablet PO AC-BRKFST [facility] Pregabalin 75 mg 07/16/22 21:45 07/16/22 22:11 Pregabalin 75 Mg Cap PO 75 mg HS JANINE Administration Tizanidine HCl 4 mg 07/16/22 21:24 Tizanidine 4 Mg Tab PO BID PRN Muscle Pain Trazodone HCl 100 mg 07/16/22 21:45 07/16/22 22:11 Trazodone Hcl 100 Mg Tab PO 100 mg HS JANINE Administration 07/16/22 18:36 07/16/22 18:36
[2022-07-17] MEDS: METOPROLOL TARTRATE 12.5 MG TAB PO SCH ×3 (10:40→21:59)
[2022-07-17] MEDS ORDERED: SODIUM CHLORIDE 0.9% 1,000 ML in EMPTY BAG 1 BAG IV ONE (10:40)
[2022-07-17] MEDS: PANTOPRAZOLE 40 MG TABLET PO SCH (10:40)
[2022-07-17] MEDS: ASPIRIN 325 MG TAB PO SCH (10:41)
[2022-07-17] MEDS: DESVENLAFAXINE SUCCINATE 50 MG TAB.ER.24H PO SCH (10:41)
[2022-07-17] MEDS: ENOXAPARIN 40 MG/0.4 ML SYRINGE SQ SCH (10:41)
[2022-07-17] MEDS ORDERED: VERAPAMIL 2.5 MG/ML 2 ML AMP ONE (11:49)
[2022-07-17] MEDS ORDERED: SODIUM CHLORIDE 0.9% 1,000 ML IV ONE (12:07)
[2022-07-17] MEDS ORDERED: LIDOCAINE 1% INJ 10MG/ML (5 ML VIAL-PF) SQ ONE (12:12)
[2022-07-17] MEDS ORDERED: MIDAZOLAM 2 MG/2 ML VIAL IV ONE (12:13)
[2022-07-17] MEDS ORDERED: HEPARIN SODIUM 1,000 UN/ML (10ML VL) ONE (12:15)
[2022-07-17] MEDS ORDERED: HEPARIN SODIUM 1,000 UN/ML (10ML VL) IV ONE (12:17)
[2022-07-17] MEDS ORDERED: VERAPAMIL SYRINGE (5 MG/10 ML) INTRAARTER ONE (12:17)
[2022-07-17] MEDS ORDERED: IOPAMIDOL-370 125ML BTL INJ ONE (12:25)
[2022-07-17] MEDS ORDERED: RX INFO: IV CONTRAST WAS GIVEN 1 EACH MISC MISCELLANE PRN (12:36)
--- NOTE | 2022-07-17 12:39 | P.PCN ---
Date of Procedure: 07/17/22 Operative Findings: CARDIAC CATHETERIZATION PERFORMING PHYSICIAN: Gilson Isaac MD, RPVI PROCEDURE PERFORMED: 1. Selective right and left coronary angiogram 2. Left heart catheterization INDICATION: Chest discomfort concerning for unstable angina COMPLICATION: None APPROACH: Right radial artery LEVEL OF SEDATION: Moderate with a sedation length of 16 minutes PROCEDURE DESCRIPTION: After obtaining an informed consent, the patient was brought to cardiac microbiology lab analyst. Local anesthesia was performed using lidocaine subcutaneously. The right radial artery was cannulated using Seldinger technique, the guidewire passed easily, following that we advanced a 5-[place] sheath dilator assembly, the wire and dilator were removed and sheath was flushed. Following that, 2 mg of verapamil along with 5000 unit heparin were given. Selective right and left coronary angiogram using a 6-[place] African JR4 and JL 3.5 catheters. Following that we did left heart catheterization using 6-Central African pigtail catheter. The procedure was completed there was no complication. SELECTIVE CORONARY ANGIOGRAM: The right coronary artery: Large caliber vessel and a dominant vessel. Its angiographically normal. Distally bifurcates into PDA and PLV branches Left main: Large caliber vessel. Its angiographically normal. The left circumflex: Large caliber vessel and nondominant vessel. Its angiographically normal. Gives rise into an OM which bifurcates into 2 subbranches both appeared to be angiographically normal The left anterior descending artery: Large caliber vessel. Its angiographically normal and gives rise into the first and second and third diagonal branches APPEARS to be angiographically normal. HEMODYNAMICS: The LVEDP was 9 mmHg no significant gradient across aortic valve CONCLUSION: 1. Normal coronary angiogram 2. Normal left-sided filling pressures POSTPROCEDURE MANAGEMENT: The patient can be discharged home
[2022-07-17] MEDS ORDERED: SODIUM CHLORIDE 0.9% 1,000 ML IV SCH (12:45)
--- NOTE | 2022-07-17 13:14 | HP ---
HISTORY AND PHYSICAL CHIEF COMPLAINT: Chest pain. HISTORY OF PRESENT ILLNESS: This is a 66-year-old woman with a past medical history of CAD, hypertension, hyperlipidemia, is complaining of chest pain. The patient is having on and off chest pains on the left side of the anterior part of chest necessitating outpatient cardiac catheterization with Dr. Isaac. Because of increasing pain, the patient came to [facility] and cardiology saw the patient and planning possible cardiac cath today or tomorrow. There is no history of any fever, rigors, or chills. PAST MEDICAL HISTORY: Reviewed, include a CVA, TIA, fibromyalgia, GERD, myocardial infarction. Rest of the history and rest of the chart is reviewed. HOME MEDICATIONS: Reviewed include Desyrel, doses and rest of medications reviewed. ALLERGIES: Reviewed include Dilaudid, rest of the allergies reviewed. FAMILY HISTORY: History of atrial fibrillation. SOCIAL HISTORY: No history of smoking. Occasional alcohol intake. REVIEW OF SYSTEMS: A 14-point review is negative except as mentioned earlier. PHYSICAL EXAMINATION: VITAL SIGNS: Pulse is 50, blood pressure 97/60, respirations 16. HEENT: Conjunctivae normal. NECK: No jugular venous distention. CARDIOVASCULAR: S1, S2 muffled. RESPIRATIONS: Breath sounds diminished at the bases. No rhonchi, no crackles. ABDOMEN: Soft, nontender. LEGS: No edema, no swelling. NERVOUS SYSTEM: Nonfocal. LABORATORY DATA: At this time reviewed. ASSESSMENT: 1. Chest pain, possible unstable angina. 2. History of myocardial infarction. 3. History of fibromyalgia. 4. History of CVA, TIA. 5. Abnormal myocardial perfusion image showing anterior wall ischemia. 6. History of ICD. RECOMMENDATIONS: Recommended to continue current medications, symptomatic treatment. Otherwise, antiplatelet agents, beta blockers and daily Lipitor. Close followup with Cardiology. Resume the home medications once they are confirmed. Otherwise, I would recommend closely follow with Cardiology for cardiac recommendations. Further recommendations to follow. MMODL / IJN: [id number] /
[2022-07-17] MEDS: PREGABALIN 75 MG CAP PO SCH (21:59)
[2022-07-17] MEDS: ATORVASTATIN 40 MG TAB PO SCH (22:00)
[2022-07-17] MEDS: traZODone HCL 100 MG TAB PO SCH (22:00)
[2022-07-18 03:59] VITALS: RESP 17
[2022-07-18] MEDS: PANTOPRAZOLE 40 MG TABLET PO SCH (06:23)
[2022-07-18] MEDS: NITROGLYCERIN OINT 1 INCH/GM PACKET TOPICAL SCH ×2 (06:23→11:36)
[2022-07-18] MEDS ORDERED: HEPARIN SODIUM,PORCINE 2,500 UNIT in SODIUM CHLORIDE 0.9% 250 ML IRRIGATION PRN (07:00)
[2022-07-18] MEDS ORDERED: HEPARIN SODIUM,PORCINE 10,000 UNIT in SODIUM CHLORIDE 0.9% 1,000 ML IRRIGATION PRN (07:00)
[2022-07-18 08:00] VITALS: BP 108/63; PULSE 55; TEMP 97.8
[2022-07-18] MEDS: ASPIRIN 325 MG TAB PO SCH (09:23)
[2022-07-18] MEDS: METOPROLOL TARTRATE 12.5 MG TAB PO SCH (09:23)
[2022-07-18] MEDS: KETOROLAC 15 MG/ML 1 ML VIAL IVP PRN (09:23)
[2022-07-18] MEDS: ENOXAPARIN 40 MG/0.4 ML SYRINGE SQ SCH (09:23)
[2022-07-18] MEDS: DESVENLAFAXINE SUCCINATE 50 MG TAB.ER.24H PO SCH (09:25)
--- NOTE | 2022-07-18 10:28 | P.PN ---
Subjective Progress Note Date: 07/18/22 History of present illness: This is a 66-year-old female patient of Dr. Isaac with past medical history of coronary artery disease as well as hypertension and hyperlipidemia Patient states that she's been having heartburn sensation over the past month and getting worse. She last saw Dr. Isaac one week ago and had a stress test and ultrasound done which she was told was abnormal and a cardiac catheterization was recommended. Patient requested to wait until August to get through the holidays. She now presents to the emergency center due to worsening chest pain. EKG is a sinus bradycardia at a heart rate of 56 bpm, in no acute changes 2 CBC unremarkable. INR 1. CMP unremarkable. Troponin negative 3. Triglycerides 113, cholesterol 172, LDL 96, HDL 52. Chest x-ray normal EP study 07/2020 found nonsustained irregular atrial tachycardia and brief nonsustained ventricular tachycardia. Arrhythmias Cardiac catheterization 11/2019 revealed right dominant system, normal filling pressures, no gradient across the aortic valve. A small branch off the distal circumflex has a subtotal occlusion and the vessel is 11 0.5 mm or less and this is the culprit lesion. LAD and dominant RCA are free of significant disease. No other areas of disease in the circumflex system. Echocardiogram 07/03/2022 revealed EF 50-55%, moderate mitral regurgitation, mild to moderate tricuspid regurgitation Lexiscan Cardiolite stress test performed on 07/03 revealed abnormal reversible defect of small size and mild intensity involving the anterior wall of the left ventricle 07/18 Patient had a bit of oozing last evening from the wrist area and band was required longer than expected. She denies having any current new concerns today. Cardiac catheterization was done yesterday with Dr. Isaac which revealed normal coronary arteries and normal left-sided filling pressures. Patient is cleared from cardiology for discharge home. Physical examination: Gen: This is a 66-year-old female. She is resting in bed and appears to be comfortable at rest VS: reviewed HEENT: Head is atraumatic, normocephalic. Pupils equal, round. Sclerae is anicteric. NECK: Supple. No JVD. LUNGS: Clear to auscultation. No wheezes or rhonchi. No intercostal retractions. HEART: Regular rate and rhythm. Systolic murmur. ABDOMEN: Soft. No masses. No tenderness. EXTREMITIES: No pedal edema. No calf tenderness. NEUROLOGICAL: Patient is awake, alert and oriented x3. Assessment: Chest pain, acute coronary syndrome ruled out Rule out coronary artery disease Abnormal myocardial perfusion imaging stress test with anterior ischemia Moderate mitral regurgitation History of SVT Plan: Continue patient on aspirin 81 mg daily, Lipitor 40 mg daily, Lopressor 12.5 mg twice daily Patient is cleared from cardiology for discharge home Thank you kindly for this consultation. Nurse practitioner note has been reviewed, I agree with documented findings and plan of care. Patient was seen and examined. Objective - Vital Signs Vital signs: Vital Signs Temp 97.8 F 07/18/22 07:59 Pulse 55 L 07/18/22 07:59 Resp 17 07/18/22 07:59 BP 108/63 07/18/22 07:59 Pulse Ox 98 07/18/22 07:59 FiO2 Intake & Output 07/17/22 07/18/22 07/18/22 18:59 06:59 18:59 Intake Total 100 600 Balance 100 600 Weight 74.843 kg Intake: IV 100 Oral 600 Other: # Voids 1 1 - Labs CBC & Chem 7: 07/16/22 18:36 07/16/22 18:36
[2022-07-18 12:13] LABS: Basophils # (A) 0 X 10*3/uL (0.00-0.10); Basophils % (A) 0 %; Eosinophils # (A) 0 X 10*3/uL (0.04-0.35); Eosinophils % (A) 0 %; HGB 11.9 g/dL (12.0-15.0); Immature Grans, Automated 0.4 %; Lymphocytes # (A) 1.43 X 10*3/uL (0.90-5.00); Lymphocytes % (A) 25.9 %; MCH 29.8 pg (27.0-32.0); MCV 87.5 fL (80.0-97.0); Mean Platelet Volume 12.1 fL (9.5-12.2); Monocytes # (A) 0.46 X 10*3/uL (0.20-1.00); Monocytes % (A) 8.3 %; NRBC Per 100 WBC 0 /100 WBCS (0.0-0.0); Neutrophils # (A) 3.61 X 10*3/uL (1.80-7.70); Neutrophils % (A) 65.4 %; Platelet Count 185 X 10*3/uL (140-440); RDW 12.1 % (11.5-14.5); WBC 5.52 X 10*3/uL (4.50-10.00)
[2022-07-18 12:21] LABS: African American GFR (CKD) 64.1 (60.0-200.0); Albumin 3.4 g/dL (3.8-4.9); Albumin/Globulin Ratio 2.18 (1.60-3.17); Anion Gap 8.5 mmol/L (10.00-18.00); BUN/Creat Ratio 24.38 Ratio (12.00-20.00); Blood Urea Nitrogen 25.6 mg/dL (9.0-27.0); Calcium 8.7 mg/dL (8.7-10.3); Carbon Dioxide 23.7 mmol/L (20.0-27.5); Globulin 1.6 g/dL (1.6-3.3); Non-African American GFR(CKD) 55.3 (60.0-200.0); Potassium 4.2 mmol/L (3.5-5.5); Total Bilirubin 0.3 mg/dL (0.30-1.20)
--- NOTE | 2022-07-19 12:14 | P.DS ---
Providers Date of admission: 07/17/22 14:12 Expected date of discharge: 07/18/22 Attending physician: Nohemy Lamas Consults: 07/16/22 19:53 Consult Physician Urgent Consulting Provider: Gilson Isaac Consult Reason/Comments: cp Do you want consulting provider notified?: Yes Primary care physician: Guzman Carrillo [facility] Course: Final diagnosis Chest pain, possible unstable angina History of myocardial infarction History of fibromyalgia History of CVA/TIA Abnormal myocardial perfusion image showing anterior wall ischemia History of ICD Full code Discharge disposition Patient is being discharged in a stable condition with guarded prognosis to home. Patient will follow-up with Dr. Carrillo in the outpatient setting upon discharge. Patient is to follow up outpatient with Dr. Isaac as scheduled. Total time taken is greater than 35 minutes. Hospital course This is a 66-year-old female who was recently admitted with chest pain, possible unstable angina and being closely monitored. Patient was seen and evaluated by cardiology recommending cardiac catheterization and patient was agreeable. Patient has been undergoing a lot of stress been having these recurrent episodes of chest pain and on description appears to be musculoskeletal of some form she reports it is on the left chest by the breast and radiating under the armpit. Patient will be given updated prescription for nitroglycerin and also encouraged follow-up with cardiology along with primary care provider in the outpatient setting. Patient did have cardiac catheterization which was clear and rec ommending continuing current medication management. Patient asking for something for anxiety and encouraged the patient to follow-up with primary care provider in the outpatient setting this week to discuss this. Patient will be given some Ultram for pain. Currently reports of left chest wall pain, no shortness of breath, or palpitations. Patient is afebrile. No reports of nausea or vomiting and patient is tolerating diet. Patient will be discharged home today. Guarded prognosis Physical exam: Gen: This is a 66-year-old female who is awake, alert and oriented 3, well- developed, well-nourished. Ears older than stated age. HEENT: Head is atraumatic, normocephalic. Pupils equal, round. Sclerae is anicteric. NECK: Supple. No JVD. No lymphadenopathy. No thyromegaly. LUNGS: Diminished breath sounds bilaterally with no wheezing or rhonchi noted.. No intercostal retractions. HEART: S1, S2 are muffled ABDOMEN: Soft. Bowel sounds are present. No masses. No tenderness. EXTREMITIES: No pedal edema. No calf tenderness. NEUROLOGICAL: Patient is awake, alert and oriented x3. Cranial nerves 2 through 12 are grossly intact. Please refer to medication reconciliation sheet for a list of medications. The impression and plan of care has been dictated by Sharon Salinas, Nurse Practitioner as directed. Dr. Bereket MD I have performed a history and examination and MDM of this patient, discussed the same with the dictator, and agree with the dictator's assessment and plan as written ,documented as a scribe. Based on total visit time, I have performed more than 50% of the visit. Patient Condition at Discharge: Fair Plan - Discharge Summary Discharge Rx Participant: No New Discharge Prescriptions: New traMADol HCl [Ultram] 50 mg PO Q6HR PRN 3 Days #6 tab PRN Reason: Pain Nitroglycerin Sl Tabs [Nitrostat] 0.4 mg SUBLINGUAL Q5M PRN 30 Days #25 tab PRN Reason: Chest Pain Continue Omeprazole 40 mg PO DAILY #60 capsule. Aspirin 81 mg PO DAILY chew Atorvastatin [Lipitor] 40 mg PO HS #30 tab Nitroglycerin Sl Tabs [Nitrostat] 0.4 mg SUBLINGUAL Q5M PRN #25 tab PRN Reason: Chest Pain Pregabalin [Lyrica] 75 mg PO HS tiZANidine [Zanaflex] 4 mg PO BID PRN PRN Reason: Muscle Pain Metoprolol Tartrate [Lopressor] 12.5 mg PO BID Desvenlafaxine [Pristiq ER] 100 mg PO DAILY traZODone HCL [Desyrel] 100 mg PO HS Discharge Medication List Omeprazole 40 mg PO DAILY #60 capsule. 02/17/19 [Rx] Aspirin 81 mg PO DAILY chew 11/21/19 [Rx] Atorvastatin [Lipitor] 40 mg PO HS #30 tab 11/21/19 [Rx] Nitroglycerin Sl Tabs [Nitrostat] 0.4 mg SUBLINGUAL Q5M PRN #25 tab 11/21/19 [Rx] Pregabalin [Lyrica] 75 mg PO HS 11/21/19 [History] Desvenlafaxine [Pristiq ER] 100 mg PO DAILY 07/16/22 [History] Metoprolol Tartrate [Lopressor] 12.5 mg PO BID 07/16/22 [History] tiZANidine [Zanaflex] 4 mg PO BID PRN 07/16/22 [History] traZODone HCL [Desyrel] 100 mg PO HS 07/16/22 [History] Nitroglycerin Sl Tabs [Nitrostat] 0.4 mg SUBLINGUAL Q5M PRN 30 Days #25 tab 07/18/22 [Rx] traMADol HCl [Ultram] 50 mg PO Q6HR PRN 3 Days #6 tab 07/18/22 [Rx] Follow up Appointment(s)/Referral(s): Gilson Isaac MD [STAFF PHYSICIAN] - 1 Week (office will call with follow up rosmery ointment ) Guzman Carrillo MD [Primary Care Provider] - 1 Week Patient Instructions/Handouts: Chest Pain (DC), After Radial Heart Catheterization (GEN) Activity/Diet/Wound Care/Special Instructions: Activity Limited until follow-up Follow-up with primary care provider on discharge follow-up cardiology in one week Continue taking medications as prescribed Continue heart healthy diet Discharge Disposition: HOME SELF-CARE
== END 2022-07-18 14:25 | disposition home or self-care (01) | DRG 287 ==
LOC: EC 13:55 → 6NMEDSUR 19:53 → OBSVTOIN 07-17 14:12
PROVIDERS: ADMIT Internal Medicine; ATTEND Internal Medicine
PROC: B2111ZZ Fluoroscopy of Multiple Coronary Arteries using Low Osmolar Contrast (ICD-10-PCS; principal; 2022-07-17 07:30)
PROC: 4A023N7 Measurement of Cardiac Sampling and Pressure, Left Heart, Percutaneous Approach (ICD-10-PCS; principal; 2022-07-17 07:30)
DX: I25.110 Atherosclerotic heart disease of native coronary artery with unstable angina pectoris (principal); E78.5 Hyperlipidemia, unspecified; M35.00 Sjogren syndrome, unspecified; I08.1 Rheumatic disorders of both mitral and tricuspid valves; I25.2 Old myocardial infarction; R00.1 Bradycardia, unspecified; I10 Essential (primary) hypertension; F32.A Depression, unspecified; F41.9 Anxiety disorder, unspecified; M79.7 Fibromyalgia; K44.9 Diaphragmatic hernia without obstruction or gangrene; K21.9 Gastro-esophageal reflux disease without esophagitis; K58.9 Irritable bowel syndrome, unspecified; M19.90 Unspecified osteoarthritis, unspecified site; Z79.82 Long term (current) use of aspirin; Z79.899 Other long term (current) drug therapy; Z95.810 Presence of automatic (implantable) cardiac defibrillator; Z85.3 Personal history of malignant neoplasm of breast; Z87.01 Personal history of pneumonia (recurrent); Z86.73 Personal history of transient ischemic attack (TIA), and cerebral infarction without residual deficits; Z88.5 Allergy status to narcotic agent; Z88.2 Allergy status to sulfonamides; Z88.8 Allergy status to other drugs, medicaments and biological substances; Z82.49 Family history of ischemic heart disease and other diseases of the circulatory system
CPT/HCPCS: 36415; 71046; 80053; 80061; 83735; 84484; 85025; 85610; 85730; 93005; 93458; 96374; 96375; 96376; 99285

== ENCOUNTER → 2023-03-23 | Outpatient (CLI) | payer MEDICARE, OTHER ==
--- NOTE | 2023-03-23 11:45 | MM ---
Reason for Exam: Follow-up at short interval from prior study. Last screening mammogram was performed 6 month(s) ago. Patient History: Menarche at age 13. First Full-Term at age 19. Hysterectomy at age 33. Postmenopausal. Breast cancer, right, age 57. Estrogen for 2 months. 12/11/2009, Benign Lumpectomy on the right side. 04/12/2013, Mastectomy on the Right side. 07/2013, Chemotherapy. 12/2012, Radiation Therapy on the right side. Mother had breast cancer, age 74. Prior Study Comparison: 09/03/2020 Left Diagnostic Mammogram, [facility]. 09/19/2021 Left Diagnostic Mammogram, [facility]. 09/22/2022 Left MG 3D diag mammo w/cad , [facility]. Tissue Density: Left: The breast tissue is heterogeneously dense. This may lower the sensitivity of mammography. Findings: Analyzed By CAD. Appears stable. No persistent suspicious nodular densities evident. Mild focal asymmetry may remain medial breast appears less suspicious on the current exam. No suspicious groups of microcalcifications, spiculated or lobular masses, architectural distortion or other secondary signs of malignancy are mammographically apparent. Overall Assessment: Benign, BI-RAD 2 Management: Screening Mammogram of the left breast in 6 months. A negative mammogram report should not preclude additional follow up of suspicious palpable abnormalities. Patient should continue monthly self breast exam. A clinical breast exam by your physician is recommended on an annual basis and results should be correlated with mammographic findings. Electronically signed and approved by: Catrachito Foy D.O. Radiologis
== END | disposition home or self-care (01) ==
LOC: RADMAMWWP 10:56
PROVIDERS: ATTEND Internal Medicine Hematology & Oncology
DX: C50.211 Malignant neoplasm of upper-inner quadrant of right female breast (principal); Z17.1 Estrogen receptor negative status [ER-]; Z78.0 Asymptomatic menopausal state; Z80.3 Family history of malignant neoplasm of breast; Z90.11 Acquired absence of right breast and nipple; R51.9 Headache, unspecified
CPT/HCPCS: 77065; G0279; 77061

== ENCOUNTER → 2023-04-01 | Outpatient (CLI) | payer MEDICARE, OTHER ==
--- NOTE | 2023-04-02 20:37 | MR ---
EXAMINATION TYPE: MR brain wo/w con DATE OF EXAM: 04/01/2023 7:15 PM CLINICAL INDICATION:Female, 67 years old with history of C50.211 BREAST CANCER; Breast cancer, headac hes getting worse COMPARISON: 04/22/2019 TECHNIQUE: Multi planar, multi sequence imaging was performed through the brain including: T1, T2, In version recovery, susceptibility weighted imaging and gradient echo imaging and Diffusion weighted im aging. The patient was then given intravenous contrast and multi planar, T1 fat-saturation images wer e obtained. IV Contrast: 7.5 cc Gadavist FINDINGS: The torrez-white junctions, ventricular system, basal cisterns appear unremarkable. Diffusion-weighted imaging shows no evidence of restricted diffusion to suggest acute/subacute infarct. Intracranial art erial flow voids are maintained. Midline structures show no abnormality. Minimal scattered foci of hi gh T2 signal intensity are seen within the periventricular white matter. The susceptibility weighted images do not reveal any evidence for micro-hemorrhage. After administration of gadolinium, no abnorm al enhancement is seen. The bone marrow signal is within normal limits. Paranasal sinuses and mastoid air cells: No significant paranasal sinus disease. Visualized orbits: Bilateral aphakia. IMPRESSION: 1. No evidence of intracranial mass, acute/subacute infarct, or abnormal enhancement. 2. Minimal Nonspecific white matter changes, likely related to small vessel ischemic disease
== END | disposition home or self-care (01) ==
LOC: RADMRIMAIN 18:01
PROVIDERS: ATTEND Internal Medicine Hematology & Oncology
DX: C50.211 Malignant neoplasm of upper-inner quadrant of right female breast (principal); R90.82 White matter disease, unspecified
CPT/HCPCS: 70553; A9585

== ENCOUNTER → 2023-05-19 | Outpatient (CLI) | payer MEDICARE, OTHER | END | disposition home or self-care (01) | LOC: LABWHC1 14:54 | PROVIDERS: ATTEND Psychiatry & Neurology Neurology | DX: I49.9 Cardiac arrhythmia, unspecified (principal) | CPT/HCPCS: 36415; 93005 ==

== ENCOUNTER → 2023-09-24 | Outpatient (CLI) | payer MEDICARE, OTHER ==
--- NOTE | 2023-09-24 21:05 | BD ---
EXAMINATION TYPE: Axial Bone Density DATE OF EXAM: 09/24/2023 CLINICAL HISTORY: 67 years old Female. ICD-10 CODE: M81.0 OSTEOPOROSIS Height: 64" Weight: 169.2lbs FRAX RISK QUESTIONS: Alcohol (3 or more units per day): No Family History (Parent hip fracture): Possibly mother Glucocorticoids (More than 3mos): Yes (Ex: prednisone, prednisolone, methylprednisolone, dexamethasone, and hydrocortisone). History of Fracture in Adulthood: No Secondary Osteoporosis: 1. Type 1 Diabetes: No 2. Hyperthyroidism: No 3. Menopause before 45: Yes 4. Malnutrition: No 5. Chronic liver disease: No Rheumatoid Arthritis: No Current Tobacco Use: No RISK FACTORS HISTORY OF: Hip Fracture (Right/Left): No Spine Fracture: No History of Wrist Fracture: No Surgery to Spine/Hip(right/left)/Wrist (right/left): No MEDICATIONS: Thyroid Medications: No Osteoporosis Medications: No EXAM MEASUREMENTS: Bone mineral densitometry was performed using the Unt[employer] System. Bone mineral density as measured about the Lumbar spine is: ----- L1-L4(G/cm2): 1.018 T Score Values are as follows: ----- L1: -1.6 ----- L2: -1.3 ----- L3: -1.9 ----- L4: -0.8 ----- L1-L4: -1.4 Z Score Values are as follows: ----- L1: -0.3 ----- L2: -0.1 ----- L3: -0.7 ----- L4: 0.4 ----- L1-L4: -0.1 Bone mineral density has: increased 4.9% since study of: 08/26/2019 Bone mineral density about the R hip (g/cm2): 0.720 Bone mineral density about the L hip (g/cm2): 0.680 T Score values are as follows: -----R Neck: -2.1 -----L Neck: -2.1 -----R Total: -2.3 -----L Total: -2.6 Z Score values are as follows: -----R Neck: -0.8 -----L Neck: -0.8 -----R Total: -1.2 -----L Total: -1.5 Bone mineral density has: decreased -0.8% since study of: 08/26/2019 FRAX%s: The graph provided illustrates a 19.9% chance for a major osteoporotic fx and a 3.5% chance f or the hips probability for fx in 10 years time. IMPRESSION: Osteoporosis (T Score less than -2.5). There is increased fracture risk and therapy is usually indicated based on age. Re-Screen 1-2 years. NOTE: T-SCORE=SD OF THE YOUNG ADULT MEAN.
--- NOTE | 2023-09-25 10:18 | MM ---
Reason for Exam: Screening (asymptomatic). Last screening mammogram was performed 6 month(s) ago. Patient History: Menarche at age 13. First Full-Term at age 19. Hysterectomy at age 33. Postmenopausal. Breast cancer, right, age 57. Estrogen for 2 months. 12/11/2009, Benign Lumpectomy on the right side. 04/12/2013, Mastectomy on the Right side. 07/2013, Chemotherapy. 12/2012, Radiation Therapy on the right side. Mother had breast cancer, age 74. Prior Study Comparison: 09/19/2021 Left Diagnostic Mammogram, [facility]. 09/22/2022 Left MG 3D diag mammo w/cad LT, [facility]. 03/23/2023 Left MG 3D diag mammo w/cad LT, [facility]. Tissue Density: Left: The breast tissue is heterogeneously dense. This may lower the sensitivity of mammography. Findings: Mammogram Benign-appearing calcifications. No dominant mass or architectural distortion. No suspicious grouped calcifications.. Overall Assessment: Benign, BI-RAD 2 Management: Screening Mammogram of the left breast in 1 year. . Results were given to the patient verbally at the time of exam. Patient should continue monthly self-breast exams. A clinical breast exam by your physician is recommended on an annual basis. This exam should not preclude additional follow-up of suspicious palpable abnormalities. Note on Leighann scores and lifetime risk: 1. A Leighann score greater than 3% is considered moderate risk. If this is the case, consider specialist referral to assess eligibility for a risk reducing agent. 2. If overall lifetime risk for the development of breast cancer is 20% or higher, the patient may qualify for future screening with alternating mammogram and breast MRI. Electronically signed and approved by: Guzman Sweeney M.D. Radiologis
== END | disposition home or self-care (01) ==
LOC: RADMAMWWP 10:39
PROVIDERS: ATTEND Internal Medicine Geriatric Medicine
DX: Z12.31 Encounter for screening mammogram for malignant neoplasm of breast (principal); M85.89 Other specified disorders of bone density and structure, multiple sites; M81.0 Age-related osteoporosis without current pathological fracture; C79.81 Secondary malignant neoplasm of breast; C80.1 Malignant (primary) neoplasm, unspecified; Z78.0 Asymptomatic menopausal state; Z80.3 Family history of malignant neoplasm of breast; Z90.11 Acquired absence of right breast and nipple
CPT/HCPCS: 77067; 77080

== ENCOUNTER 2024-04-21 07:16 | Day surgery (SDC) | payer MEDICARE, OTHER ==
[2024-04-15 10:45] VITALS: BMI 27.6
[2024-04-21] MEDS: SODIUM CHLORIDE 0.9% 1,000 ML IV SCH (07:57)
[2024-04-21] MEDS: IV FLUID CONTINUATION 1,000 ML IV ONE (07:58)
[2024-04-21 08:19] VITALS: RESP 16; TEMP 97.7
[2024-04-21 09:35] VITALS: BP 136/70; PULSE 62
--- NOTE | 2024-05-03 19:39 | P.EPPROC ---
- EP Procedure Note Electrophysiology Procedure Note: Diagnosis Recurrent presyncope 12 EKG shows sinus rhythm normal TX interval narrow QRS QT interval is about 470 ms with a heart rate of 52 beats a minute Tilt table test per protocol Baseline blood pressure 111/62 mmHg pulse rate in the 50s Patient was tilted upright in angle of 70 degrees per protocol Her blood pressure dipped down to 96 mmHg and she felt lightheaded However the blood pressure improved and remained above 100 mmHg between 100-105 mmHg No change in heart rate She felt lightheaded throughout the test Impression Normal twelve-lead EKG. QT interval at the upper limits of normal Transient, mild orthostasis with feeling of lightheadedness and nausea Her blood pressure remained in the low 100s while heart rate remained stable She felt lightheaded and nauseous throughout the test No evidence for POTS or orthostatic intolerance No evidence for neurocardiogenic syncope
== END 2024-04-21 09:39 | disposition home or self-care (01) ==
LOC: CATHEP 07:16
PROVIDERS: ATTEND Internal Medicine Clinical Cardiac Electrophysiology
DX: Z88.8 Allergy status to other drugs, medicaments and biological substances (principal)
CPT/HCPCS: 93660

== ENCOUNTER → 2024-09-30 | Outpatient (CLI) | payer MEDICARE ==
--- NOTE | 2024-09-30 11:07 | MR ---
EXAMINATION TYPE: MR brain wo/w con DATE OF EXAM: 09/30/2024 COMPARISON: MRI brain April 01, 2023. CT brain March 05, 2024 HISTORY: Dizziness, episode of passing out 09-21-24. TECHNIQUE: Multiplanar, multisequence images of the brain and brainstem is performed without and with IV contras t, utilizing 7 mL intravenous Gadobutrol . FINDINGS: Diffusion weighted images demonstrate no evidence of a recent infarct or other diffusion ab normality. There is no extra-axial fluid collection or significant new white matter signal abnormali ty. The ventricular system and cisternal spaces are stable in size and appearance. The brain volume is age appropriate. Midline structures redemonstrate normal morphology. The craniocervical junction appears within lita l limits. Post contrast images demonstrate no abnormal enhancement. The dural venous sinuses appear patent. The visualized sinuses are clear. Bilateral aphakia is redemonstrated. No suspicious opacific ation of the mastoid air cells bilaterally. IMPRESSION: Unremarkable study. No significant change from prior MRI. [facility], , 09/30/2024 11:05 AM
== END | disposition home or self-care (01) ==
LOC: RADMRIMAIN 10:02
PROVIDERS: ATTEND Internal Medicine Geriatric Medicine
DX: G45.9 Transient cerebral ischemic attack, unspecified (principal); H27.03 Aphakia, bilateral
CPT/HCPCS: 70553; A9585

== ENCOUNTER → 2024-10-21 | Outpatient (CLI) | payer MEDICARE ==
--- NOTE | 2024-10-21 11:03 | MM ---
Reason for Exam: Screening (asymptomatic). Last mammogram was performed 1 year(s) and 1 month(s) ago. Patient History: Menarche at age 13. First Full-Term at age 19. Hysterectomy at age 33. Postmenopausal. Breast cancer, right, age 57. Estrogen for 2 months. 12/11/2009, Benign Lumpectomy on the right side. 04/12/2013, Mastectomy on the Right side. 07/2013, Chemotherapy. 12/2012, Radiation Therapy on the right side. Mother had breast cancer, age 74. Prior Study Comparison: 09/22/2022 Left MG 3D diag mammo w/cad LT, [facility]. 03/23/2023 Left MG 3D diag mammo w/cad LT, [facility]. 09/24/2023 Left MG 3D scr tiki unilateral w/cad., [facility]. Tissue Density: Left: The breasts are heterogeneously dense, which may obscure small masses. Findings: Analyzed By CAD. Benign appearing vascular calcifications in the left breast is redemonstrated. Benign-appearing scattered and loosely grouped tiny round calcifications in left breast are redemonstrated. There is no suspicious new group of microcalcifications or new suspicious mass in the left breast. Overall Assessment: Benign, BI-RAD 2 Management: Screening Mammogram of the left breast in 1 year. . Patient should continue monthly self-breast exams. A clinical breast exam by your physician is recommended on an annual basis. This exam should not preclude additional follow-up of suspicious palpable abnormalities. Note on Leighann scores and lifetime risk: 1. A Leighann score greater than 3% is considered moderate risk. If this is the case, consider specialist referral to assess eligibility for a risk reducing agent. 2. If overall lifetime risk for the development of breast cancer is 20% or higher, the patient may qualify for future screening with alternating mammogram and breast MRI. [facility], , 10/21/2024 10:59 AM. Electronically signed and approved by: Giuseppe Arevalo M.D.
== END | disposition home or self-care (01) ==
LOC: RADMAMWWP 09:52
PROVIDERS: ATTEND Internal Medicine Geriatric Medicine
DX: Z12.31 Encounter for screening mammogram for malignant neoplasm of breast (principal); R92.333 Mammographic heterogeneous density, bilateral breasts; Z78.0 Asymptomatic menopausal state; Z80.3 Family history of malignant neoplasm of breast
CPT/HCPCS: 77067

== ENCOUNTER 2025-01-17 11:30 | Day surgery (SDC) | payer MEDICARE ==
[2025-01-12 17:56] VITALS: BMI 25.0
--- NOTE | 2025-01-17 06:42 | P.HPOR ---
History of Present Illness H&P Date: 01/04/25 .D:Date: 01/04/25 : 09:58am .T:Title: FOLLOW UP LUMBAR FRACTURE Clinical Summary Deepthi Deal presented for a follow-up regarding her lumbar spine condition. She reports severe back pain with a VAS score of 9, following an incident on November 25 where she attempted to lift a heavy object, resulting in a fall and audible crack in her back. Imaging studies, including CT and MRI, reveal a burst compression fracture at L3 with associated edema and disc injury between L2 and L3. Deepthi has been using a brace, ice, and heat for pain management, and is considering surgical intervention due to the persistent pain and further vertebral collapse observed on imaging. Options discussed include kyphoplasty with cement and jacks to stabilize the fracture and alleviate pain. Chief Complaint Severe back pain following a lumbar spine injury. History Deepthi Deal presents today for follow-up regarding her lumbar spine injury. Patient denies any fever, chills, shortness of breath, chest pain, perineal numbness and tingling, bowel or bladder incontinence/retention. The patients' past social, medical, family, surgical history, as well as review of systems, have been reviewed. Please refer to the Neurosurgery History and Physical form that has been scanned into our electronic medical record system. 16 points review of systems completed and as stated in HPI, all other systems reviewed are negative. Physical Exam On examination today, the patient is alert and oriented times three, in no acute distress, appearing well nourished and well hydrated with overall alignment well maintained. Functionally, the patient demonstrates independent [id number] transition in 10 sec seconds and ambulates without cane currently. She is wearing LSO. Surgical Incision: NOne TTP: Midline at the L3 and paraspinal. Musculoskeletal examination reveals full range of motion in all major joints without restriction or pain. 5/5 strength in all major muscle groups of bilateral upper extremities. 4/5 strength in all major muscle groups of the bilateral lower extremities. Due to pain Neurologically, sensation is intact to light touch throughout C3-T1 and L2-S1 dermatomes, with 2/4 reflexes in bilateral upper and lower extremities. Waller's, clonus, Babinski, and Eri's signs are all negative, with no tensioning signs present. Cranial nerves II-XII are grossly intact. Vascular examination demonstrates 2/4 distal pulses in all four extremities without edema, and compartments are soft and compressible. The abdomen is soft and non-tender to palpation, with normal, non-labored respirations noted. Imaging Review of imaging from CT and MRI shows a burst compression fracture at L3 with associated edema and disc injury between L2 and L3. Edema in the L3 vertebral body and L2-3 disc space. There is 50% compression of the L3 body with fracture lines extending through the anterior and posterior endplate. Assessment 1. Burst compression fracture of L3 - ICD: S32.030A 2. Edema of L3 vertebral body - ICD: M89.9 3. Disc injury between L2 and L3 - ICD: M51.26 4. Osteoporosis - ICD: M81.0 Plan - Continue wearing the brace for support. -Kypho with biopsy of L3 scheduled. - Use ice and heat for pain management. - Maintain a balanced diet to support bone healing. - Schedule surgery for next week, pending pre-operative clearance. Medical Necessity, Surgical Rational, and Risks Review The patient, Deepthi Deal, presents with a burst compression fracture at L3, associated edema, and a disc injury between L2 and L3, following an incident involving heavy lifting on November 25. Despite conservative management including brace support, ice, and heat application, she experiences severe pain with a VAS score of 9, indicating a significant impact on her daily activities and quality of life. Surgical Rationale: Kyphoplasty is indicated as a minimally invasive procedure to stabilize the vertebral fracture and alleviate pain. This procedure involves the insertion of cement and possibly metal jacks to restore vertebral height and immobilize the fracture, thus preventing further collapse observed on imaging studies. The expected outcomes include expedited pain relief, potential reduction in the need for prolonged narcotic use, and a faster return to normal activities compared to conservative management alone. Risks: As with any surgical procedure, kyphoplasty carries inherent risks such as infection, bleeding, cement leakage leading to neurological or systemic complications, and anesthetic risks, particularly given the patient's underlying osteoporosis and age-related considerations. However, these risks are mitigated by the expertise of the surgical team and the pre-operative assessment designed to optimize patient safety. Follow Up 2 weeks post-operative follow-up. Plan at Next Visit Review post-operative recovery and pain management. Patient Education Medications Reviewed: YES In our visit today Deepthi Deal and I have had a chance to go over my unders tanding of the patient's current condition, the natural course history without intervention and various interventional options. Questions were invited and answered, and the patient wishes to proceed as outlined above. I will be sure to keep you updated after Deepthi Deal returns here for further follow-up. Thank you again for your referral. Please do not hesitate to contact me if you have any further questions. Signed and authenticated by: Alvino Chaparro DO [facility] [address] [facility], [address] [address] This message is confidential, intended only for the named recipient(s) and may contain information that is privileged or exempt from disclosure under applicable law. If you are not the intended recipient(s), you are notified that the dissemination, distribution or copying of this information is strictly prohibited. If you received this message in error, please notify the sender th en delete this message. # SIGNED BY Alvino Chaparro (GOO)01/04/2025 10:31AM Past Medical History Past Medical History: Cancer, CVA/TIA, Fibromyalgia, GERD/Reflux, Myocardial Infarction ([place]), Mitral Valve Prolapse (MVP), Osteoarthritis (OA), Pneumonia Additional Past Medical History / Comment(s): Hx TIA X2-NO RESIDUAL, HX STAGE 3 RIGHT BREAST CANCER - 2012, last chemo 2013, hx Kidney stones, Sjogren's, anemia, MENINGITIS, IBS, poor circulation bilateral legs, numbness in toes, hypoglycemia, hypotension, migraines Last Myocardial Infarction Date:: 11/2019 History of Any Multi-Drug Resistant Organisms: None Reported Past Surgical History: Adenoidectomy, Breast Surgery, Cholecystectomy, Heart Catheterization, Hysterectomy, Orthopedic Surgery, Tonsillectomy Additional Past Surgical History / Comment(s): FALLOPIAN TUBE AND A MASS REMOVED, hiatal hernia repair X2, bilateral knee arthroscopy, right mastectomy, bilateral cataracts, eyelid surgery, bilateral hand surgery/carpal tunnel and arthroplasty Past Anesthesia/Blood Transfusion Reactions: No Reported Reaction Additional Past Anesthesia/Blood Transfusion Reaction / Comment(s): PT HAS RECEI GARRETT BLOOD WITH NO REACTION. FENTANYL MAKES HER FEEL VERY OFF MENTALLY AND SHE DOES NOT WANT IT AGAIN. Past Psychological History: Anxiety, Depression Additional Psychological History / Comment(s): . Smoking Status: Never smoker Past Alcohol Use History: Occasional Additional Past Alcohol Use History / Comment(s): PT STATES SHE WILL DRINK A BEER ON OCCASION. Past Drug Use History: None Reported - Past Family History Father Family Medical History: Hypertension, Myocardial Infarction ([place]), Prostate Disorder, Thyroid Disorder Daughter(s) Family Medical History: Blood Disorder Additional Family Medical History / Comment(s): Factor 5, LUPUS Mother Family Medical History: AFIB, Cancer Additional Family Medical History / Comment(s): Breast cancer. Medications and Allergies Home Medications Medication Instructions Recorded Confirmed Type traZODone HCL [Desyrel] 50 mg PO HS 07/16/22 01/12/25 History Pantoprazole [Protonix] 40 mg PO QAM 04/15/24 01/12/25 History Pregabalin [Lyrica] 150 mg PO HS 04/15/24 01/12/25 History Venlafaxine HCl [Effexor] 75 mg PO HS 04/15/24 01/12/25 History Hydrocodone/Acetaminophen 1 tab PO Q6H PRN 01/12/25 01/12/25 History [Hydrocodone/Acetaminophen 7.5-325] Ibuprofen [Motrin] 600 mg PO Q8HR PRN 01/12/25 01/12/25 History Midodrine [ProAmatine] 5 mg PO QAM 01/12/25 01/12/25 History Rosuvastatin Calcium 5 mg PO HS 01/12/25 01/12/25 History Allergies Allergy/AdvReac Type Severity Reaction Status Date / Time hydromorphone HCl Allergy Severe LOW HEART Verified 01/12/25 17:34 [From Dilaudid] RATE iron sucrose complex Allergy Severe HAD MINI Verified 01/12/25 17:34 [From Venofer] STROKE AFTER INFUSION meperidine HCl [From Demerol] Allergy Intermediate Nausea & Verified 01/12/25 17:34 Vomiting morphine Allergy Intermediate Nausea & Verified 01/12/25 17:34 Vomiting Sulfa (Sulfonamide Allergy Mild Itching Verified 01/12/25 17:34 Antibiotics) fentanyl AdvReac "does not Verified 01/12/25 17:34 like how she feels mentally" Physical Examination Osteopathic Statement: *. No significant issues noted on an osteopathic structural exam other than those noted in the History and Physical/Consult.
[~2025-01-17 11:30] MED LIST changes: -CASIRIVIMAB (REGN10933) (EUA) 600 MG, IMDEVIMAB (REGN10987) (EUA) 600 MG in SODIUM CHLO... IVPB ONE; +ONDANSETRON 4 MG/2 ML VIAL IVP PRN; -SODIUM CHLORIDE 0.9% 50 ML IVPB ONE; -SODIUM CHLORIDE 0.9% 500 ML 500 ML in EMPTY BAG 1 BAG IV PRN; +TRANEXAMIC 1,000 MG/100ML-NACL 1,000 MG in SALINE 1 100ML.BAG IVPB PRN; +droPERidol 2.5 MG/ML VIAL IVP ONE; +fentaNYL (PF) 50 MCG/ML 2 ML AMP IV PRN
[2025-01-17] MEDS: IV FLUID CONTINUATION 1,000 ML IV ONE ×2 (12:20→12:25)
[2025-01-17] MEDS: LIDOCAINE 1% (10MG/ML) FOR IV START INTRADERMA PRN (12:23)
[2025-01-17] MEDS: LACTATED RINGERS 1,000 ML IV SCH (12:23)
[2025-01-17] MEDS: GABAPENTIN 300 MG CAP PO PRN (12:24)
[2025-01-17] MEDS: ONDANSETRON 4 MG/2 ML VIAL IVP ONE (12:24)
[2025-01-17] MEDS: ACETAMINOPHEN TAB 500 MG TAB PO PRN (12:24)
[2025-01-17] MEDS: DEXAMETHASONE SOD PHOSPHATE 4 MG/ML 1 ML VIAL IV ONE (12:25)
[2025-01-17] MEDS: BUPIVACAINE (PF) 0.5% 30 ML VIAL SQ ONE ×2 (13:40→14:18)
[2025-01-17] MEDS: IOPAMIDOL M200 10 ML VIAL MISCELLANE ONE ×2 (13:40→14:18)
[2025-01-17] MEDS: LIDOCAINE 2%-EPI 1:100,000 20 ML VIAL SQ ONE ×2 (13:40→14:18)
[2025-01-17] MEDS ORDERED: LIDOCAINE 1% INJ 10MG/ML (20 ML MDV) ONE (13:49)
[2025-01-17] MEDS ORDERED: PROPOFOL 10 MG/ML 20 ML VIAL IV ONE (13:49)
[2025-01-17] MEDS ORDERED: KETOROLAC 15 MG/ML 1 ML VIAL ONE (13:49)
[2025-01-17] MEDS ORDERED: ACETAMINOPHEN IV (For NPO) 1,000 MG/100 ML VIAL ONE (13:49)
[2025-01-17] MEDS ORDERED: MIDAZOLAM 2 MG/2 ML VIAL ONE (13:49)
[2025-01-17] MEDS ORDERED: SUCCINYLCHOLINE CHLORIDE 200 MG/10 ML VIAL IV ONE (13:49)
[2025-01-17] MEDS: ceFAZolin 2 GM in DEXTROSE 5% IN WATER 50 ML IVPB PRN (13:54)
[2025-01-17 15:01] VITALS: TEMP 97.2
--- NOTE | 2025-01-17 15:19 | FL ---
EXAMINATION TYPE: FL guidance operating room, XR lumbar spine 2 or 3V DATE OF EXAM: 01/17/2025 2:54 PM COMPARISON: Pre Operative Images if available both CT/MRI or plain film CLINICAL INDICATION: Female, 69 years old with history of KYPHOPLASTY; TECHNIQUE: FL guidance operating room, XR lumbar spine 2 or 3V, multiple fluoroscopic images provided for procedure. DAP: 8.8767 mGym2 Gycm2 uGym2 cGycm2 or equivalent. FINDINGS: Fluoroscopic images during vertebroplasty. No immediate complication identified. IMPRESSION: 1. No evidence for intraoperative complication. 2. Please see the operative/procedural note for further details. [facility], , 01/17/2025 3:16 PM
[2025-01-17] MEDS: HYDROcodone/APAP 7.5-325MG 1 EACH TAB PO ONE (15:48)
[2025-01-17 16:25] VITALS: RESP 16
[2025-01-17 17:07] VITALS: BP 133/76; PULSE 74
--- NOTE | 2025-01-26 06:48 | P.OP ---
Date of Procedure: 01/17/25 Preoperative Diagnosis: 1. L3 VCF 50 % 2. LOW BACK PAIN 3. DEBILITY Postoperative Diagnosis: 1. L3 VCF 50 % 2. LOW BACK PAIN 3. DEBILITY Procedure(s) Performed: 1. L3 KYPHOPLASTY WITH BIOPSY, BILATERAL Implants: CATHY CEMENT Anesthesia: GETA Surgeon: Alvino Chaparro Printing Table Hand #1: Pillo Jung (WAS PRESENT AND ASSISTED WITH ALL ASPECTS OF THE CASE FROM POSITION TO DRESSING PLACEMENT) Estimated Blood Loss (ml): 2 IV fluids (ml): 500 Urine output (ml): 0 Pathology: other (L3 VERTEBRAL BODY) Condition: stable Disposition: PACU Indications for Procedure: Deepthi Deal presented for a follow-up regarding her lumbar spine condition. She reports severe back pain with a VAS score of 9, following an incident on November 25 where she attempted to lift a heavy object, resulting in a fall and audible crack in her back. Imaging studies, including CT and MRI, reveal a burst compression fracture at L3 with associated edema and disc injury between L2 and L3. Deepthi has been using a brace, ice, and heat for pain management, and is considering surgical intervention due to the persistent pain and further vertebral collapse observed on imaging. Options discussed include kyphoplasty with cement and jacks to stabilize the fracture and alleviate pain. Description of Procedure: Lumbar (3) Kyphoplasty The patient was seen and examined in the preoperative area. All preoperative protocols were followed. Informed consent was obtained, risks and benefits of the procedure were discussed at length. Risks including bleeding infection damage to the surrounding tissue and risk of reoperation were discussed with the patient. Risk of anesthesia up to and including was discussed with the patient. These are outlined in the risk review. They were willing to accept these risks and all the risks of surgery. The patient was given a weight-based dose of antibiotics in the form of 2 g Ancef. The patient was seen and evaluated by the anesthesia team who deemed them fit for surgery. The site was marked, the patient was willing to proceed with the procedure. The patient was transferred to the operative suite by the Department of anesthesia. They were then drifted off to sleep by the department anesthesia and GETA was performed. The patient tolerated this well. Once confirmation of lines and ventilation the patient was transferred to a prone Matias table very carefully. All bony prominences including wrists, elbows, axilla, chest, hips, and thighs, and feet were padded very well. Special attention was paid to the genitalia, and these were padded accordingly. SCDs were placed on bilateral lower extremities and were connected. Arms were well padded and placed on arm boards up and out in the 90/90 position. Once in position, again we confirmed good ventilation capabilities and that lines were running appropriately. The patients Lumbar spine was then exposed. 1010s were placed outlining the incision site. Standard alcohol was used to clean the incision site and allowed to dry. C-arm was used to needle localize the pedicles at L3 and bio-cam the patient and confirm level for incision which was marked with a skin marker. Operative briefing was performed with all teams and everyone in agreement to proceed. The patient was then prepped and draped in a normal sterile fashion. Timeout was then performed, and all parties agreed with the procedure to be performed. Skin donaldo was made. Jamshitdi was passed into the L3 vertebral body via the pedicle. This was done with biplane fluoroscopy. Once in good position in the body the trochar is removed. Biopsy needle was passed into the body and a biopsy was taken. Drill was then passed and biopsy material taken from drill as well. Curette then used to reduce endplate and create more space. Balloon was then passed an inflated which showed good reduction of endplate on AP and Lateral and confirmed central placement. The cement was then placed and pt remained stable. Good fill of cement was seen without extravasation. Once good fill, the Jamshedi was removed and the wound irrigated. The skin was closed with a simple stitch and dressed with a bandaid. The patient was then transferred off the table back to their hospital bed a- traumatically. They were extubated by the department of anesthesia. They were then transferred to PACU in stable condition having tolerated the procedure with no complications.
== END 2025-01-17 17:38 | disposition home or self-care (01) ==
LOC: OR 11:30
PROVIDERS: ATTEND Orthopaedic Surgery
DX: M80.08XA Age-related osteoporosis with current pathological fracture, vertebra(e), initial encounter for fracture (principal); I34.1 Nonrheumatic mitral (valve) prolapse; I25.2 Old myocardial infarction; R60.9 Edema, unspecified; M19.90 Unspecified osteoarthritis, unspecified site; M79.7 Fibromyalgia; F41.9 Anxiety disorder, unspecified; F32.A Depression, unspecified; Z82.49 Family history of ischemic heart disease and other diseases of the circulatory system; Z83.49 Family history of other endocrine, nutritional and metabolic diseases; Z90.49 Acquired absence of other specified parts of digestive tract; Z90.710 Acquired absence of both cervix and uterus; Z90.13 Acquired absence of bilateral breasts and nipples; Z90.79 Acquired absence of other genital organ(s); Z86.73 Personal history of transient ischemic attack (TIA), and cerebral infarction without residual deficits; Z96.653 Presence of artificial knee joint, bilateral; Z80.3 Family history of malignant neoplasm of breast; Z88.5 Allergy status to narcotic agent; Z88.2 Allergy status to sulfonamides; Z88.1 Allergy status to other antibiotic agents; Z79.1 Long term (current) use of non-steroidal anti-inflammatories (NSAID); Z79.899 Other long term (current) drug therapy
CPT/HCPCS: 88307; 88311; 72100; 22514; J2250; J0330; J1100; J0690; J2405; J2003; J0131; J1885; J2704; Q9966; J0665